=== PATIENT | female | born 1940 | race Asian ===

== ENCOUNTER → 2016-09-12 | Outpatient (CLI) | payer MEDICARE, OTHER ==
[~2016-09-12] MED LIST: CALCTAB20 OR; COLE625T10 OR; FOLI1TAB6 OR; GLYB5TAB8 OR; METF-312 OR; OLME40TA27 OR; OMEG1CAP10 OR; SITA100T7 OR
[2016-09-12 12:47] LABS: Urine Bilirubin Negative (Negative); Urine Blood Negative /uL (Negative); Urine Color Yellow (Yellow); Urine Glucose Normal (Normal); Urine Ketone Negative (Negative); Urine Nitrite Negative (Negative); Urine Urobilinogen Normal (Negative); Urine pH 5.5 (5.0-8.0)
[2016-09-12 12:51] LABS: Basophils # (auto) 0 uL; Basophils % (auto) 0.6 % (0.0-2.0); DEFINITIVE VIEW TRANSMISSION; Eosinophils # (auto) 0.3 uL; Eosinophils % (auto) 4.6 % (0.0-7.0); Hemoglobin 10.8 g/dL (12.2-16.2); Lymphocytes # (auto) 1.5 uL; Lymphocytes % (auto) 27.4 % (10.0-50.0); Mean Corpuscular Hemoglobin 28.2 pg (28.0-32.0); Mean Corpuscular Hgb Conc. 32.7 g/dL (32.0-36.0); Mean Corpuscular Volume 86.2 fL (80.0-100.0); Mean Platelet Volume 9.4 fL (7.4-10.4); Monocytes # (auto) 0.4 uL; Monocytes % (auto) 6.8 % (0.0-12.0); Neutrophils # (auto) 3.4 uL; Neutrophils % (auto) 60.6 % (37.0-80.0); Platelet Count (auto) 180 10^3/uL (140-450); White Blood Cell 5.6 10^3/uL (4.4-10.8)
[2016-09-12 13:01] LABS: Red Cell Distribution Width 20.7 % (11.6-16.0)
[2016-09-12 14:17] LABS: Albumin 3.4 g/dL (3.4-5.0); Bilirubin, Direct 0.2 mg/dL (0-0.2); Bilirubin, Total 0.6 mg/dL (0.2-1.0); Calcium 9.7 mg/dL (8.5-10.1); Total Protein 8.4 g/dL (6.4-8.2)
[2016-09-12 15:20] LABS: Anisocytosis Slight; Platelet Estimate Adequate; Tear Drop Cells FEW
== END | disposition home or self-care (01) ==
LOC: LAB 07:58
PROVIDERS: ATTEND Internal Medicine Cardiovascular Disease
DX: I10 Essential (primary) hypertension (principal); E78.00 Pure hypercholesterolemia, unspecified; K74.1 Hepatic sclerosis; E11.9 Type 2 diabetes mellitus without complications; E03.9 Hypothyroidism, unspecified; D64.9 Anemia, unspecified; E55.9 Vitamin D deficiency, unspecified; N39.0 Urinary tract infection, site not specified
CPT/HCPCS: 36415; 80048; 80061; 80076; 81003; 82306; 83036; 84443; 85025

== ENCOUNTER → 2016-10-15 | Outpatient (CLI) | payer MEDICARE, OTHER | END | disposition home or self-care (01) | LOC: Rad HDHVI 09:53 | PROVIDERS: ATTEND Internal Medicine Cardiovascular Disease | DX: G45.9 Transient cerebral ischemic attack, unspecified (principal); R55 Syncope and collapse; R06.02 Shortness of breath; E78.5 Hyperlipidemia, unspecified | CPT/HCPCS: 93880 ==

== ENCOUNTER → 2017-01-14 | Outpatient (CLI) | payer MEDICARE, OTHER ==
[~2017-01-14] MED LIST changes: -METF-312 OR; +METF-370 OR
[2017-01-14 16:25] LABS: Urine Bilirubin Negative (Negative); Urine Blood Negative /uL (Negative); Urine Color Yellow (Yellow); Urine Glucose Normal (Normal); Urine Ketone Negative (Negative); Urine Nitrite Negative (Negative); Urine Urobilinogen Normal (Negative); Urine pH 7.5 (5.0-8.0)
[2017-01-14 16:39] LABS: Basophils # (auto) 0 uL; Basophils % (auto) 0.6 % (0.0-2.0); CONDITION Y; DEFINITIVE SEE PRINTOUT; Eosinophils # (auto) 0.3 uL; Eosinophils % (auto) 3.5 % (0.0-7.0); Hematocrit 26.1 % (36.0-46.0); Hemoglobin 8.4 g/dL (12.2-16.2); Lymphocytes # (auto) 1.8 uL; Lymphocytes % (auto) 24.7 % (10.0-50.0); Mean Corpuscular Hemoglobin 24.1 pg (28.0-32.0); Mean Corpuscular Volume 75.4 fL (80.0-100.0); Monocytes # (auto) 0.6 uL; Monocytes % (auto) 8.7 % (0.0-12.0); Neutrophils # (auto) 4.6 uL; Neutrophils % (auto) 62.5 % (37.0-80.0); Platelet Count (auto) 200 10^3/uL (140-450); White Blood Cell 7.4 10^3/uL (4.4-10.8)
[2017-01-14 17:24] LABS: Albumin 3.3 g/dL (3.4-5.0); BUN/Creatinine Ratio 18.8; Bilirubin, Direct 0.2 mg/dL (0-0.2); Bilirubin, Total 0.6 mg/dL (0.2-1.0); Calcium 9.4 mg/dL (8.5-10.1); Total Protein 8.2 g/dL (6.4-8.2)
[2017-01-14 18:30] LABS: Anisocytosis Slight; Burr Cells FEW; Hypochromia Slight; Platelet Estimate Adequate
[2017-01-14 18:31] LABS: Schistocytes FEW
== END | disposition home or self-care (01) ==
LOC: Rad HDHVI 11:21
PROVIDERS: ATTEND Internal Medicine Cardiovascular Disease
DX: I10 Essential (primary) hypertension (principal); E78.00 Pure hypercholesterolemia, unspecified; D64.9 Anemia, unspecified; E03.9 Hypothyroidism, unspecified; E55.9 Vitamin D deficiency, unspecified; K74.1 Hepatic sclerosis; E11.9 Type 2 diabetes mellitus without complications; N39.0 Urinary tract infection, site not specified; M85.9 Disorder of bone density and structure, unspecified
CPT/HCPCS: 36415; 77078; 80048; 80061; 80076; 81003; 82306; 83036; 84443; 85025

== ENCOUNTER → 2017-01-22 | Outpatient (CLI) | payer MEDICARE, OTHER ==
[~2017-01-22] MED LIST changes: +CYANOCOBALAMIN (B-12) 1000 MCG/1 ML VIAL IM ONE; +CYANOCOBALAMIN (B-12) 1000 MCG/1 ML VIAL ONE
[2017-01-22 10:30] VITALS: BP 113/52
[2017-01-22 11:56] LABS: Basophils # (auto) 0 uL; Basophils % (auto) 0.2 % (0.0-2.0); CONDITION Y; DEFINITIVE SEE PRINTOUT; Eosinophils # (auto) 0.2 uL; Eosinophils % (auto) 3.5 % (0.0-7.0); Hematocrit 25.2 % (36.0-46.0); Lymphocytes # (auto) 1.7 uL; Mean Corpuscular Hemoglobin 23.6 pg (28.0-32.0); Mean Corpuscular Hgb Conc. 31.8 g/dL (32.0-36.0); Mean Corpuscular Volume 74.1 fL (80.0-100.0); Mean Platelet Volume 8.6 fL (7.4-10.4); Monocytes # (auto) 0.6 uL; Monocytes % (auto) 9.5 % (0.0-12.0); Neutrophils # (auto) 3.8 uL; Neutrophils % (auto) 59.8 % (37.0-80.0); Platelet Count (auto) 206 10^3/uL (140-450); Red Cell Distribution Width 19.8 % (11.6-16.0); SUSPECT SEE PRINTOUT; White Blood Cell 6.4 10^3/uL (4.4-10.8)
[2017-01-22 12:15] VITALS: BP 152/55
[2017-01-22 12:33] LABS: Platelet Estimate Adequate
[2017-01-22 12:34] LABS: Anisocytosis Slight; Hypochromia Moderate; Microcytosis Moderate
[2017-01-22 12:35] LABS: Burr Cells FEW; Tear Drop Cells FEW
[2017-01-22 12:36] LABS: Ovalocytes FEW
== END | disposition home or self-care (01) ==
LOC: CHF HDHVI 10:19
PROVIDERS: ATTEND Internal Medicine Cardiovascular Disease
DX: D51.9 Vitamin B12 deficiency anemia, unspecified (principal)
CPT/HCPCS: 36415; 82607; 85025; G0463; J3420

== ENCOUNTER → 2017-01-23 | Outpatient (CLI) | payer MEDICARE, OTHER ==
[~2017-01-23] MED LIST changes: -CYANOCOBALAMIN (B-12) 1000 MCG/1 ML VIAL IM ONE; -CYANOCOBALAMIN (B-12) 1000 MCG/1 ML VIAL ONE
[2017-01-23 15:08] LABS: Basophils # (auto) 0 uL; Basophils % (auto) 0.2 % (0.0-2.0); CONDITION Y; DEFINITIVE SEE PRINTOUT; Eosinophils # (auto) 0.4 uL; Eosinophils % (auto) 5.3 % (0.0-7.0); Hematocrit 24.8 % (36.0-46.0); Hemoglobin 7.9 g/dL (12.2-16.2); Lymphocytes # (auto) 2.1 uL; Lymphocytes % (auto) 29.7 % (10.0-50.0); Mean Corpuscular Hemoglobin 23.6 pg (28.0-32.0); Mean Corpuscular Hgb Conc. 31.8 g/dL (32.0-36.0); Mean Platelet Volume 7.7 fL (7.4-10.4); Monocytes # (auto) 0.6 uL; Neutrophils % (auto) 55.8 % (37.0-80.0); Platelet Count (auto) 195 10^3/uL (140-450); White Blood Cell 7.2 10^3/uL (4.4-10.8)
[2017-01-23 15:34] LABS: Red Cell Distribution Width 20.2 % (11.6-16.0)
[2017-01-23 15:35] LABS: Reticulocyte Count 2.78 % (0.5-1.5)
[2017-01-23 16:18] LABS: Anisocytosis Slight; Hypochromia Slight; Platelet Estimate Adequate; Schistocytes FEW
== END | disposition home or self-care (01) ==
LOC: LAB 14:46
DX: I10 Essential (primary) hypertension (principal)
CPT/HCPCS: 36415; 83540; 83550; 85025; 85045

== ENCOUNTER → 2017-02-04 | Outpatient (CLI) | payer MEDICARE, OTHER ==
[2017-02-04 10:55] LABS: Basophils # (auto) 0 uL; Basophils % (auto) 0.6 % (0.0-2.0); CONDITION Y; DEFINITIVE SEE PRINTOUT; Eosinophils # (auto) 0.3 uL; Hematocrit 26.5 % (36.0-46.0); Hemoglobin 8.5 g/dL (12.2-16.2); Lymphocytes # (auto) 1.4 uL; Lymphocytes % (auto) 32.1 % (10.0-50.0); Mean Corpuscular Hemoglobin 24.5 pg (28.0-32.0); Mean Corpuscular Volume 76.5 fL (80.0-100.0); Mean Platelet Volume 9.1 fL (7.4-10.4); Monocytes # (auto) 0.4 uL; Monocytes % (auto) 8.4 % (0.0-12.0); Neutrophils # (auto) 2.3 uL; Neutrophils % (auto) 51.9 % (37.0-80.0); Platelet Count (auto) 169 10^3/uL (140-450); White Blood Cell 4.5 10^3/uL (4.4-10.8)
[2017-02-04 10:58] LABS: Red Cell Distribution Width 23.3 % (11.6-16.0)
[2017-02-04 11:40] LABS: Anisocytosis Slight; Hypochromia Slight; Ovalocytes FEW; Platelet Estimate Adequate
== END | disposition home or self-care (01) ==
LOC: LAB 10:42
PROVIDERS: ATTEND Internal Medicine
DX: D50.9 Iron deficiency anemia, unspecified (principal)
CPT/HCPCS: 36415; 85025

== ENCOUNTER → 2017-02-25 | Outpatient (CLI) | payer MEDICARE, OTHER ==
[2017-02-25 10:42] LABS: Basophils # (auto) 0 uL; Basophils % (auto) 0.6 % (0.0-2.0); CONDITION Y; DEFINITIVE SEE PRINTOUT; Eosinophils # (auto) 0.2 uL; Eosinophils % (auto) 5.9 % (0.0-7.0); Hematocrit 29.7 % (36.0-46.0); Hemoglobin 9.8 g/dL (12.2-16.2); Lymphocytes # (auto) 1.1 uL; Lymphocytes % (auto) 27.5 % (10.0-50.0); Mean Corpuscular Hemoglobin 27.8 pg (28.0-32.0); Mean Corpuscular Hgb Conc. 32.9 g/dL (32.0-36.0); Mean Corpuscular Volume 84.4 fL (80.0-100.0); Mean Platelet Volume 9.1 fL (7.4-10.4); Monocytes # (auto) 0.4 uL; Monocytes % (auto) 9.7 % (0.0-12.0); Neutrophils # (auto) 2.3 uL; Neutrophils % (auto) 56.3 % (37.0-80.0); Platelet Count (auto) 190 10^3/uL (140-450); SUSPECT SEE PRINTOUT; White Blood Cell 4.1 10^3/uL (4.4-10.8)
[2017-02-25 10:50] LABS: Red Cell Distribution Width 31.4 % (11.6-16.0)
[2017-02-25 11:02] LABS: BUN/Creatinine Ratio 12.7; Calcium 9.7 mg/dL (8.5-10.1); Potassium 4.5 mmol/L (3.5-5.1)
[2017-02-25 11:30] LABS: Anisocytosis Moderate; Hypochromia Slight; Platelet Estimate Adequate
== END | disposition home or self-care (01) ==
LOC: LAB 10:27
PROVIDERS: ATTEND Internal Medicine
DX: D64.9 Anemia, unspecified (principal)
CPT/HCPCS: 36415; 80048; 85025

== ENCOUNTER → 2017-03-05 | Outpatient (CLI) | payer MEDICARE, OTHER | END | disposition home or self-care (01) | LOC: LAB 08:13 | PROVIDERS: ATTEND Internal Medicine | DX: D64.9 Anemia, unspecified (principal) | CPT/HCPCS: 83540; 83550 ==

== ENCOUNTER → 2017-04-02 | Outpatient (CLI) | payer MEDICARE, OTHER ==
[2017-04-02 09:28] LABS: Basophils # (auto) 0.1 uL; Eosinophils # (auto) 0.5 uL; Eosinophils % (auto) 9.8 % (0.0-7.0); Hematocrit 31.4 % (36.0-46.0); Hemoglobin 10.2 g/dL (12.2-16.2); Lymphocytes # (auto) 1.4 uL; Mean Corpuscular Hemoglobin 31.2 pg (28.0-32.0); Mean Corpuscular Hgb Conc. 32.5 g/dL (32.0-36.0); Mean Platelet Volume 7.4 fL (6.9-10.8); Monocytes # (auto) 0.5 uL; Monocytes % (auto) 8.8 % (0.0-12.0); Neutrophils # (auto) 2.9 uL; Neutrophils % (auto) 54.4 % (37.0-80.0); Nucleated Red Blood Cells % 0.1 %; Platelet Count (auto) 132 10^3/uL (140-450); White Blood Cell 5.3 10^3/uL (4.4-10.8)
[2017-04-02 14:16] LABS: Platelet Estimate Decreased
[2017-04-02 14:26] LABS: Anisocytosis Slight
== END | disposition home or self-care (01) ==
LOC: LAB 09:00
PROVIDERS: ATTEND Internal Medicine
DX: D64.9 Anemia, unspecified (principal)
CPT/HCPCS: 36415; 82728; 83540; 83550; 85025

== ENCOUNTER → 2017-05-20 | Outpatient (CLI) | payer MEDICARE, OTHER ==
[2017-05-20 12:56] LABS: Basophils # (auto) 0 uL; Basophils % (auto) 0.8 % (0.0-2.0); Eosinophils # (auto) 0.4 uL; Eosinophils % (auto) 8.4 % (0.0-7.0); Hematocrit 33.6 % (36.0-46.0); Lymphocytes # (auto) 1.4 uL; Lymphocytes % (auto) 26.8 % (10.0-50.0); Mean Corpuscular Hemoglobin 31.5 pg (28.0-32.0); Mean Corpuscular Hgb Conc. 32.8 g/dL (32.0-36.0); Mean Corpuscular Volume 96.1 fL (80.0-100.0); Mean Platelet Volume 8.8 fL (6.9-10.8); Monocytes # (auto) 0.4 uL; Monocytes % (auto) 7.8 % (0.0-12.0); Neutrophils # (auto) 2.9 uL; Neutrophils % (auto) 56.2 % (37.0-80.0); Nucleated Red Blood Cells % 0.3 %; Platelet Count (auto) 123 10^3/uL (140-450); Red Cell Distribution Width 16.7 % (11.8-14.3); White Blood Cell 5.1 10^3/uL (4.4-10.8)
[2017-05-20 12:58] LABS: Urine Bilirubin Negative (Negative); Urine Blood Negative /uL (Negative); Urine Color Yellow (Yellow); Urine Glucose Normal (Normal); Urine Ketone Negative (Negative); Urine Nitrite Negative (Negative); Urine Urobilinogen Normal (Negative)
[2017-05-20 13:29] LABS: Albumin 3.5 g/dL (3.4-5.0); Bilirubin, Total 0.5 mg/dL (0.2-1.0); Calcium 9.4 mg/dL (8.5-10.1); Potassium 3.7 mmol/L (3.5-5.1); Total Protein 8.6 g/dL (6.4-8.2)
== END | disposition home or self-care (01) ==
LOC: Rad HDHVI 08:04
PROVIDERS: ATTEND Internal Medicine Cardiovascular Disease
DX: E11.9 Type 2 diabetes mellitus without complications (principal); I10 Essential (primary) hypertension; E78.00 Pure hypercholesterolemia, unspecified; D64.9 Anemia, unspecified; E55.9 Vitamin D deficiency, unspecified; K74.1 Hepatic sclerosis; E03.9 Hypothyroidism, unspecified; E61.1 Iron deficiency; N39.0 Urinary tract infection, site not specified
CPT/HCPCS: 36415; 80053; 80061; 81003; 82306; 82728; 83036; 83540; 83550; 84443; 85025; 93306

== ENCOUNTER → 2017-07-15 | Outpatient (CLI) | payer MEDICARE, OTHER ==
[2017-07-15 11:08] LABS: Basophils # (auto) 0.1 uL; Basophils % (auto) 0.9 % (0.0-2.0); Eosinophils # (auto) 0.9 uL; Hematocrit 32.3 % (36.0-46.0); Hemoglobin 10.5 g/dL (12.2-16.2); Lymphocytes # (auto) 1.1 uL; Lymphocytes % (auto) 15.9 % (10.0-50.0); Mean Corpuscular Hemoglobin 28.1 pg (28.0-32.0); Mean Corpuscular Hgb Conc. 32.4 g/dL (32.0-36.0); Mean Corpuscular Volume 86.7 fL (80.0-100.0); Monocytes # (auto) 0.5 uL; Monocytes % (auto) 8.1 % (0.0-12.0); Neutrophils # (auto) 4.1 uL; Neutrophils % (auto) 62.1 % (37.0-80.0); Platelet Count (auto) 126 10^3/uL (140-450); Red Blood Cells 3.72 10^6/uL (4.0-5.20); Red Cell Distribution Width 18.2 % (11.8-14.3); White Blood Cell 6.7 10^3/uL (4.4-10.8)
[2017-07-15 11:48] LABS: % Iron Saturation 21.1 % (15-50)
== END | disposition home or self-care (01) ==
LOC: LAB 10:02
PROVIDERS: ATTEND Internal Medicine
DX: D64.9 Anemia, unspecified (principal)
CPT/HCPCS: 36415; 82728; 83540; 83550; 85025

== ENCOUNTER → 2017-09-07 | Outpatient (CLI) | payer MEDICARE, OTHER ==
[2017-09-07 11:02] LABS: Albumin 3.2 g/dL (3.4-5.0); BUN/Creatinine Ratio 15.7; Bilirubin, Total 0.9 mg/dL (0.2-1.0); Calcium 9.7 mg/dL (8.5-10.1); Potassium 3.6 mmol/L (3.5-5.1)
[2017-09-07 11:17] LABS: Basophils # (auto) 0 uL; Basophils % (auto) 0.9 % (0.0-2.0); Eosinophils # (auto) 0.5 uL; Eosinophils % (auto) 9.4 % (0.0-7.0); Hemoglobin 11.3 g/dL (12.2-16.2); Lymphocytes # (auto) 1.2 uL; Lymphocytes % (auto) 24.4 % (10.0-50.0); Mean Corpuscular Hemoglobin 28.2 pg (28.0-32.0); Mean Corpuscular Hgb Conc. 32.3 g/dL (32.0-36.0); Mean Corpuscular Volume 87.4 fL (80.0-100.0); Monocytes # (auto) 0.4 uL; Monocytes % (auto) 8.8 % (0.0-12.0); Neutrophils # (auto) 2.8 uL; Neutrophils % (auto) 56.5 % (37.0-80.0); Nucleated Red Blood Cells % 0.1 %; Platelet Count (auto) 120 10^3/uL (140-450); Red Blood Cells 4.01 10^6/uL (4.0-5.20); Red Cell Distribution Width 19.6 % (11.8-14.3)
[2017-09-07 11:51] LABS: % Iron Saturation 16.7 % (15-50)
== END | disposition home or self-care (01) ==
LOC: LAB 10:18
PROVIDERS: ATTEND Internal Medicine
DX: D64.9 Anemia, unspecified (principal)
CPT/HCPCS: 36415; 80053; 82728; 83540; 83550; 83615; 85025

== ENCOUNTER → 2017-12-03 | Outpatient (CLI) | payer MEDICARE, OTHER ==
[~2017-12-03] MED LIST changes: +ALEN70TA2 PO; +AMLO5TAB2 PO; +ASPI81TA27 PO; +MULTCAP45 PO; +OLME1TAB13 PO
[2017-12-03 16:42] LABS: Eosinophils # (auto) 0.5 uL; Hemoglobin 8.1 g/dL (12.2-16.2); Monocytes # (auto) 0.5 uL; Monocytes % (auto) 8.9 % (0.0-12.0); Red Cell Distribution Width 18.7 % (11.8-14.3); White Blood Cell 5.3 10^3/uL (4.4-10.8)
[2017-12-03 16:44] LABS: Basophils # (auto) 0 uL; Basophils % (auto) 0.7 % (0.0-2.0); Hematocrit 25.5 % (36.0-46.0); Lymphocytes # (auto) 1.3 uL; Lymphocytes % (auto) 24.3 % (10.0-50.0); Mean Corpuscular Hgb Conc. 31.5 g/dL (32.0-36.0); Mean Corpuscular Volume 82.4 fL (80.0-100.0); Neutrophils % (auto) 57.1 % (37.0-80.0); Platelet Count (auto) 159 10^3/uL (140-450)
[2017-12-03 17:08] LABS: BUN/Creatinine Ratio 11.2; Bilirubin, Total 0.5 mg/dL (0.2-1.0); Calcium 8.9 mg/dL (8.5-10.1); Potassium 4.1 mmol/L (3.5-5.1); Total Protein 8.5 g/dL (6.4-8.2)
[2017-12-03 17:10] LABS: % Iron Saturation 4.1 % (15-50)
== END | disposition home or self-care (01) ==
LOC: LAB 15:49
PROVIDERS: ATTEND Internal Medicine
DX: D64.9 Anemia, unspecified (principal); E78.00 Pure hypercholesterolemia, unspecified; I10 Essential (primary) hypertension; E03.9 Hypothyroidism, unspecified; E11.9 Type 2 diabetes mellitus without complications
CPT/HCPCS: 36415; 80053; 82728; 83540; 83550; 83615; 85025

== ENCOUNTER → 2017-12-22 | Outpatient (CLI) | payer MEDICARE, OTHER ==
[~2017-12-22] MED LIST changes: -GLYB5TAB8 OR
[2017-12-22 10:09] LABS: Basophils # (auto) 0.1 uL; Basophils % (auto) 1.1 % (0.0-2.0); Eosinophils # (auto) 0.4 uL; Eosinophils % (auto) 8.6 % (0.0-7.0); Hematocrit 28.1 % (36.0-46.0); Hemoglobin 8.9 g/dL (12.2-16.2); Lymphocytes % (auto) 21.3 % (10.0-50.0); Mean Corpuscular Hemoglobin 27.6 pg (28.0-32.0); Mean Corpuscular Hgb Conc. 31.7 g/dL (32.0-36.0); Monocytes # (auto) 0.4 uL; Monocytes % (auto) 9.1 % (0.0-12.0); Neutrophils # (auto) 2.8 uL; Neutrophils % (auto) 59.9 % (37.0-80.0); Platelet Count (auto) 128 10^3/uL (140-450); Red Blood Cells 3.23 10^6/uL (4.0-5.20); White Blood Cell 4.6 10^3/uL (4.4-10.8)
[2017-12-22 10:11] LABS: Red Cell Distribution Width 28.3 % (11.8-14.3)
[2017-12-22 10:27] LABS: % Iron Saturation 17.6 % (15-50)
== END | disposition home or self-care (01) ==
LOC: LAB 10:00
PROVIDERS: ATTEND Internal Medicine
DX: D64.9 Anemia, unspecified (principal); I10 Essential (primary) hypertension; E11.9 Type 2 diabetes mellitus without complications; E78.5 Hyperlipidemia, unspecified; E03.9 Hypothyroidism, unspecified
CPT/HCPCS: 36415; 83540; 83550; 85025

== ENCOUNTER → 2018-03-23 | Outpatient (CLI) | payer MEDICARE, OTHER ==
[~2018-03-23] MED LIST changes: +AMLO5TAB13 PO; -AMLO5TAB2 PO; +OLME40TA19 OR; -OLME40TA27 OR
[2018-03-23 09:58] LABS: Urine Bacteria FEW /hpf (None Seen); Urine Blood Negative /uL (Negative); Urine Mucus FEW (None Seen); Urine Specific Gravity 1.009 (1.001-1.035); Urine WBC <1 /hpf (0 - 5)
[2018-03-23 10:09] LABS: Basophils # (auto) 0 uL; Basophils % (auto) 0.9 % (0.0-2.0); Eosinophils # (auto) 0.2 uL; Eosinophils % (auto) 5.4 % (0.0-7.0); Hematocrit 33.8 % (36.0-46.0); Hemoglobin 11.2 g/dL (12.2-16.2); Lymphocytes # (auto) 1.1 uL; Lymphocytes % (auto) 24.3 % (10.0-50.0); Mean Corpuscular Hgb Conc. 33.1 g/dL (32.0-36.0); Mean Corpuscular Volume 99.7 fL (80.0-100.0); Monocytes # (auto) 0.4 uL; Monocytes % (auto) 9.2 % (0.0-12.0); Neutrophils # (auto) 2.6 uL; Neutrophils % (auto) 60.2 % (37.0-80.0); Nucleated Red Blood Cells % 0.1 %; Platelet Count (auto) 102 10^3/uL (140-450); Red Blood Cells 3.39 10^6/uL (4.0-5.20); Red Cell Distribution Width 15.5 % (11.8-14.3); White Blood Cell 4.4 10^3/uL (4.4-10.8)
[2018-03-23 10:13] LABS: % Iron Saturation 15.5 % (15-50)
[2018-03-23 10:14] LABS: Albumin 3.3 g/dL (3.4-5.0); BUN/Creatinine Ratio 13.2; Bilirubin, Total 0.8 mg/dL (0.2-1.0); Calcium 9.4 mg/dL (8.5-10.1); Potassium 3.9 mmol/L (3.5-5.1); Total Protein 8.4 g/dL (6.4-8.2)
== END | disposition home or self-care (01) ==
LOC: LAB 09:23
PROVIDERS: ATTEND Internal Medicine
DX: D64.9 Anemia, unspecified (principal)
CPT/HCPCS: 36415; 80053; 81001; 83540; 83550; 83615; 85025

== ENCOUNTER → 2018-04-12 | Outpatient (CLI) | payer MEDICARE, OTHER, MEDICAID ==
[2018-04-12 12:31] LABS: Basophils # (auto) 0 uL; Basophils % (auto) 1.1 % (0.0-2.0); Eosinophils # (auto) 0.2 uL; Eosinophils % (auto) 4.8 % (0.0-7.0); Hematocrit 33.8 % (36.0-46.0); Hemoglobin 11.3 g/dL (12.2-16.2); Lymphocytes # (auto) 0.9 uL; Lymphocytes % (auto) 21.7 % (10.0-50.0); Mean Corpuscular Hgb Conc. 33.4 g/dL (32.0-36.0); Mean Corpuscular Volume 98.8 fL (80.0-100.0); Monocytes # (auto) 0.4 uL; Monocytes % (auto) 9.9 % (0.0-12.0); Neutrophils # (auto) 2.5 uL; Neutrophils % (auto) 62.5 % (37.0-80.0); Platelet Count (auto) 107 10^3/uL (140-450); Red Blood Cells 3.43 10^6/uL (4.0-5.20); Red Cell Distribution Width 15.9 % (11.8-14.3)
[2018-04-12 12:45] LABS: INR 1.01 (0.9-1.15); Partial Thromboplastin Time 28.7 sec (23.78-33.04); Prothrombin Time 10.8 sec (9.27-12.13)
[2018-04-12 13:49] LABS: Potassium 3.8 mmol/L (3.5-5.1)
[2018-04-12 13:59] LABS: Albumin 3.1 g/dL (3.4-5.0); BUN/Creatinine Ratio 11.3; Calcium 8.6 mg/dL (8.5-10.1)
[2018-04-12 14:01] LABS: Bilirubin, Total 1.2 mg/dL (0.2-1.0); Total Protein 8.2 g/dL (6.4-8.2)
== END | disposition home or self-care (01) ==
LOC: LAB 11:40
DX: K74.69 Other cirrhosis of liver (principal); D50.0 Iron deficiency anemia secondary to blood loss (chronic)
CPT/HCPCS: 36415; 80053; 82105; 82728; 85025; 85610; 85730

== ENCOUNTER → 2018-04-21 | Outpatient (CLI) | payer MEDICARE, OTHER | END | disposition home or self-care (01) | LOC: LAB 16:10 | PROVIDERS: ATTEND Urology | DX: N39.0 Urinary tract infection, site not specified (principal) | CPT/HCPCS: 87086 ==

== ENCOUNTER → 2018-05-07 | Outpatient (CLI) | payer MEDICARE, OTHER ==
[2018-05-07 11:58] LABS: Basophils # (auto) 0.1 uL; Basophils % (auto) 1.3 % (0.0-2.0); Eosinophils # (auto) 0.3 uL; Eosinophils % (auto) 6.2 % (0.0-7.0); Hemoglobin 12.4 g/dL (12.2-16.2); Lymphocytes # (auto) 0.8 uL; Lymphocytes % (auto) 19.6 % (10.0-50.0); Mean Corpuscular Hemoglobin 31.6 pg (28.0-32.0); Mean Corpuscular Hgb Conc. 32.6 g/dL (32.0-36.0); Mean Corpuscular Volume 96.9 fL (80.0-100.0); Monocytes # (auto) 0.5 uL; Monocytes % (auto) 10.7 % (0.0-12.0); Neutrophils # (auto) 2.6 uL; Neutrophils % (auto) 62.2 % (37.0-80.0); Platelet Count (auto) 110 10^3/uL (140-450); Red Blood Cells 3.92 10^6/uL (4.0-5.20); Red Cell Distribution Width 15.2 % (11.8-14.3); White Blood Cell 4.2 10^3/uL (4.4-10.8)
[2018-05-07 12:05] LABS: Albumin 3.7 g/dL (3.4-5.0); Calcium 9.9 mg/dL (8.5-10.1); Potassium 4.6 mmol/L (3.5-5.1)
[2018-05-07 12:09] LABS: BUN/Creatinine Ratio 10.8; Total Protein 9.2 g/dL (6.4-8.2)
== END | disposition home or self-care (01) ==
LOC: LAB 10:56
PROVIDERS: ATTEND Internal Medicine Cardiovascular Disease
DX: I10 Essential (primary) hypertension (principal); D64.9 Anemia, unspecified
CPT/HCPCS: 36415; 80053; 85025

== ENCOUNTER → 2018-06-04 | Outpatient (CLI) | payer MEDICARE, OTHER ==
[2018-06-04 10:28] LABS: Basophils # (auto) 0 uL; Eosinophils # (auto) 0.2 uL; Eosinophils % (auto) 4.7 % (0.0-7.0); Hematocrit 27.3 % (36.0-46.0); Hemoglobin 9.3 g/dL (12.2-16.2); Lymphocytes # (auto) 0.7 uL; Lymphocytes % (auto) 19.1 % (10.0-50.0); Mean Corpuscular Hgb Conc. 33.9 g/dL (32.0-36.0); Mean Corpuscular Volume 94.3 fL (80.0-100.0); Monocytes # (auto) 0.4 uL; Neutrophils # (auto) 2.2 uL; Neutrophils % (auto) 64.2 % (37.0-80.0); Nucleated Red Blood Cells % 0.1 %; Platelet Count (auto) 120 10^3/uL (140-450); Red Blood Cells 2.89 10^6/uL (4.0-5.20); Red Cell Distribution Width 16.8 % (11.8-14.3); White Blood Cell 3.5 10^3/uL (4.4-10.8)
[2018-06-04 10:39] LABS: Albumin 3.3 g/dL (3.4-5.0); Calcium 9.3 mg/dL (8.5-10.1); Potassium 4.8 mmol/L (3.5-5.1)
[2018-06-04 10:44] LABS: BUN/Creatinine Ratio 25.8; Total Protein 7.9 g/dL (6.4-8.2)
[2018-06-04 11:15] LABS: Micro Albumin 7.01 mg/L (0-30.0)
== END | disposition home or self-care (01) ==
LOC: LAB 08:38
DX: E11.65 Type 2 diabetes mellitus with hyperglycemia (principal); D64.9 Anemia, unspecified
CPT/HCPCS: 36415; 80053; 80061; 82043; 82570; 82728; 83036; 85025

== ENCOUNTER → 2018-06-09 | Outpatient (CLI) | payer MEDICARE, OTHER ==
[~2018-06-09] MED LIST changes: +FURO20TA PO; +PRO20T PO; +SPIR50TA5 PO
[2018-06-09 11:16] LABS: Basophils # (auto) 0 uL; Eosinophils # (auto) 0.1 uL; Lymphocytes # (auto) 0.7 uL; Neutrophils # (auto) 2.1 uL; White Blood Cell 3.5 10^3/uL (4.4-10.8)
[2018-06-09 11:18] LABS: Basophils % (auto) 1.1 % (0.0-2.0); Eosinophils % (auto) 3.5 % (0.0-7.0); Hematocrit 24.9 % (36.0-46.0); Hemoglobin 8.5 g/dL (12.2-16.2); Lymphocytes % (auto) 21.2 % (10.0-50.0); Mean Corpuscular Hgb Conc. 34.2 g/dL (32.0-36.0); Mean Corpuscular Volume 93.6 fL (80.0-100.0); Monocytes # (auto) 0.5 uL; Monocytes % (auto) 15.4 % (0.0-12.0); Neutrophils % (auto) 58.8 % (37.0-80.0); Platelet Count (auto) 131 10^3/uL (140-450); Red Blood Cells 2.66 10^6/uL (4.0-5.20)
[2018-06-09 13:09] LABS: Albumin 3.1 g/dL (3.4-5.0); Calcium 8.9 mg/dL (8.5-10.1); Potassium 5.1 mmol/L (3.5-5.1)
[2018-06-09 13:13] LABS: BUN/Creatinine Ratio 27.2
[2018-06-09 13:14] LABS: Bilirubin, Total 0.9 mg/dL (0.2-1.0); Total Protein 7.8 g/dL (6.4-8.2)
== END | disposition home or self-care (01) ==
LOC: LAB 10:32
PROVIDERS: ATTEND Internal Medicine
DX: K74.60 Unspecified cirrhosis of liver (principal)
CPT/HCPCS: 36415; 80053; 85025

== ENCOUNTER → 2018-06-21 | Outpatient (CLI) | payer MEDICARE, OTHER ==
[~2018-06-21] MED LIST changes: -ALEN70TA2 PO; -AMLO5TAB13 PO; -ASPI81TA27 PO; -COLE625T10 OR; -OLME1TAB13 PO; -OLME40TA19 OR; -OMEG1CAP10 OR
[2018-06-21 10:58] LABS: Basophils # (auto) 0 uL; Basophils % (auto) 1.1 % (0.0-2.0); Eosinophils # (auto) 0.2 uL; Eosinophils % (auto) 5.5 % (0.0-7.0); Hematocrit 30.9 % (36.0-46.0); Hemoglobin 10.1 g/dL (12.2-16.2); Lymphocytes # (auto) 0.5 uL; Lymphocytes % (auto) 14.7 % (10.0-50.0); Mean Corpuscular Hemoglobin 32.9 pg (28.0-32.0); Mean Corpuscular Hgb Conc. 32.7 g/dL (32.0-36.0); Mean Corpuscular Volume 100.4 fL (80.0-100.0); Monocytes # (auto) 0.4 uL; Monocytes % (auto) 11.6 % (0.0-12.0); Neutrophils # (auto) 2.2 uL; Neutrophils % (auto) 67.1 % (37.0-80.0); Platelet Count (auto) 91 10^3/uL (140-450); Red Blood Cells 3.08 10^6/uL (4.0-5.20); White Blood Cell 3.3 10^3/uL (4.4-10.8)
[2018-06-21 11:00] LABS: Red Cell Distribution Width 22.3 % (11.8-14.3)
[2018-06-21 12:07] LABS: Albumin 3.1 g/dL (3.4-5.0); Calcium 8.8 mg/dL (8.5-10.1)
[2018-06-21 12:12] LABS: BUN/Creatinine Ratio 11.7; Bilirubin, Total 1.1 mg/dL (0.2-1.0); Total Protein 7.8 g/dL (6.4-8.2)
== END | disposition home or self-care (01) ==
LOC: LAB 10:32
PROVIDERS: ATTEND Internal Medicine Gastroenterology
DX: K74.60 Unspecified cirrhosis of liver (principal)
CPT/HCPCS: 36415; 80053; 85025

== ENCOUNTER → 2018-06-25 | Outpatient (CLI) | payer MEDICARE, OTHER | END | disposition home or self-care (01) | LOC: Rad HDHVI 08:58 | PROVIDERS: ATTEND Internal Medicine Cardiovascular Disease | DX: I10 Essential (primary) hypertension (principal) | CPT/HCPCS: 93306 ==

== ENCOUNTER → 2018-07-02 | Outpatient (CLI) | payer MEDICARE, OTHER ==
[2018-07-02 11:37] LABS: Basophils # (auto) 0 uL; Basophils % (auto) 1.2 % (0.0-2.0); Eosinophils # (auto) 0.2 uL; Eosinophils % (auto) 5.1 % (0.0-7.0); Hematocrit 35.7 % (36.0-46.0); Hemoglobin 11.9 g/dL (12.2-16.2); Lymphocytes # (auto) 0.5 uL; Lymphocytes % (auto) 15.2 % (10.0-50.0); Mean Corpuscular Hemoglobin 32.8 pg (28.0-32.0); Mean Corpuscular Hgb Conc. 33.3 g/dL (32.0-36.0); Mean Corpuscular Volume 98.4 fL (80.0-100.0); Monocytes # (auto) 0.3 uL; Monocytes % (auto) 10.2 % (0.0-12.0); Neutrophils # (auto) 2.2 uL; Neutrophils % (auto) 68.3 % (37.0-80.0); Platelet Count (auto) 105 10^3/uL (140-450); Red Blood Cells 3.63 10^6/uL (4.0-5.20); White Blood Cell 3.3 10^3/uL (4.4-10.8)
[2018-07-02 11:47] LABS: Albumin 3.6 g/dL (3.4-5.0); BUN/Creatinine Ratio 15.8; Calcium 9.5 mg/dL (8.5-10.1)
[2018-07-02 11:49] LABS: Bilirubin, Total 1.3 mg/dL (0.2-1.0); Total Protein 8.9 g/dL (6.4-8.2)
[2018-07-02 11:58] LABS: % Iron Saturation 20.3 % (15-50)
== END | disposition home or self-care (01) ==
LOC: Rad HDHVI 08:25
PROVIDERS: ATTEND Internal Medicine Cardiovascular Disease
DX: K41.90 Unilateral femoral hernia, without obstruction or gangrene, not specified as recurrent (principal); R18.8 Other ascites; M51.36 Other intervertebral disc degeneration, lumbar region; D64.9 Anemia, unspecified; I10 Essential (primary) hypertension; R74.0 Nonspecific elevation of levels of transaminase and lactic acid dehydrogenase [LDH]; E61.1 Iron deficiency
CPT/HCPCS: 36415; 74176; 80053; 83540; 83550; 83615; 85025

== ENCOUNTER → 2018-07-14 | Outpatient (CLI) | payer MEDICARE, OTHER ==
[2018-07-14 11:07] LABS: Basophils # (auto) 0 uL; Basophils % (auto) 0.5 % (0.0-2.0); Eosinophils # (auto) 0.2 uL; Eosinophils % (auto) 5.2 % (0.0-7.0); Hematocrit 34.8 % (36.0-46.0); Hemoglobin 11.7 g/dL (12.2-16.2); Lymphocytes # (auto) 0.5 uL; Lymphocytes % (auto) 11.9 % (10.0-50.0); Mean Corpuscular Hemoglobin 33.3 pg (28.0-32.0); Mean Corpuscular Hgb Conc. 33.7 g/dL (32.0-36.0); Mean Corpuscular Volume 98.9 fL (80.0-100.0); Monocytes # (auto) 0.3 uL; Monocytes % (auto) 8.6 % (0.0-12.0); Neutrophils # (auto) 2.9 uL; Neutrophils % (auto) 73.8 % (37.0-80.0); Platelet Count (auto) 77 10^3/uL (140-450); Red Blood Cells 3.52 10^6/uL (4.0-5.20); Red Cell Distribution Width 19.5 % (11.8-14.3); White Blood Cell 3.9 10^3/uL (4.4-10.8)
[2018-07-14 11:28] LABS: Potassium 4.2 mmol/L (3.5-5.1)
[2018-07-14 11:37] LABS: Albumin 3.2 g/dL (3.4-5.0); BUN/Creatinine Ratio 13.6; Bilirubin, Total 1.1 mg/dL (0.2-1.0); Calcium 8.6 mg/dL (8.5-10.1); Total Protein 8.1 g/dL (6.4-8.2)
== END | disposition home or self-care (01) ==
LOC: LAB 10:47
PROVIDERS: ATTEND Internal Medicine
DX: K74.60 Unspecified cirrhosis of liver (principal)
CPT/HCPCS: 36415; 80053; 85025

== ENCOUNTER → 2018-07-27 | Outpatient (CLI) | payer MEDICARE, OTHER ==
[2018-07-27 08:23] LABS: Basophils # (auto) 0 uL; Eosinophils # (auto) 0.3 uL; Eosinophils % (auto) 6.3 % (0.0-7.0); Hematocrit 34.6 % (36.0-46.0); Lymphocytes # (auto) 0.6 uL; Lymphocytes % (auto) 14.8 % (10.0-50.0); Mean Corpuscular Hemoglobin 33.9 pg (28.0-32.0); Mean Corpuscular Hgb Conc. 34.7 g/dL (32.0-36.0); Mean Corpuscular Volume 97.6 fL (80.0-100.0); Monocytes # (auto) 0.4 uL; Monocytes % (auto) 10.3 % (0.0-12.0); Neutrophils # (auto) 2.7 uL; Neutrophils % (auto) 67.6 % (37.0-80.0); Platelet Count (auto) 93 10^3/uL (140-450); Red Blood Cells 3.55 10^6/uL (4.0-5.20); Red Cell Distribution Width 18.1 % (11.8-14.3); White Blood Cell 4.1 10^3/uL (4.4-10.8)
[2018-07-27 09:34] LABS: Anion Gap 6 (5-15); BUN/Creatinine Ratio 19.5; Blood Urea Nitrogen 15 mg/dL (7-18); Calcium 9.2 mg/dL (8.5-10.1); Carbon Dioxide 25 mmol/L (21-32); Chloride 98 mmol/L (98-107); GFR African American > 60 mL/min; GFR Non-African American > 60 mL/min; Glucose 136 mg/dL (74-106); Potassium 4.6 mmol/L (3.5-5.1); Sodium 129 mmol/L (136-145)
== END | disposition home or self-care (01) ==
LOC: LAB 08:03
PROVIDERS: ATTEND Internal Medicine Gastroenterology
DX: K74.60 Unspecified cirrhosis of liver (principal); Q27.30 Arteriovenous malformation, site unspecified; R18.8 Other ascites
CPT/HCPCS: 36415; 80048; 85025

== ENCOUNTER → 2018-08-20 | Outpatient (CLI) | payer MEDICARE, OTHER ==
[2018-08-20 11:39] LABS: Prothrombin Time 10.7 sec (9.27-12.13)
[2018-08-20 11:43] LABS: Albumin 3.4 g/dL (3.4-5.0); Potassium 4.6 mmol/L (3.5-5.1)
[2018-08-20 11:47] LABS: Basophils # (auto) 0 uL; Basophils % (auto) 0.7 % (0.0-2.0); Eosinophils # (auto) 0.2 uL; Eosinophils % (auto) 5.3 % (0.0-7.0); Hematocrit 35.1 % (36.0-46.0); Hemoglobin 11.9 g/dL (12.2-16.2); Lymphocytes # (auto) 0.5 uL; Lymphocytes % (auto) 12.1 % (10.0-50.0); Mean Corpuscular Hemoglobin 33.8 pg (28.0-32.0); Mean Corpuscular Hgb Conc. 33.9 g/dL (32.0-36.0); Mean Corpuscular Volume 99.5 fL (80.0-100.0); Monocytes # (auto) 0.4 uL; Monocytes % (auto) 10.5 % (0.0-12.0); Neutrophils # (auto) 2.7 uL; Neutrophils % (auto) 71.4 % (37.0-80.0); Platelet Count (auto) 89 10^3/uL (140-450); Red Blood Cells 3.52 10^6/uL (4.0-5.20); Red Cell Distribution Width 15.9 % (11.8-14.3); White Blood Cell 3.8 10^3/uL (4.4-10.8)
[2018-08-20 11:50] LABS: BUN/Creatinine Ratio 20.2; Bilirubin, Total 1.4 mg/dL (0.2-1.0); Calcium 9.2 mg/dL (8.5-10.1); Total Protein 8.6 g/dL (6.4-8.2)
[2018-08-20 11:52] LABS: % Iron Saturation 27.4 % (15-50)
== END | disposition home or self-care (01) ==
LOC: LAB 10:34
DX: K74.60 Unspecified cirrhosis of liver (principal); D50.9 Iron deficiency anemia, unspecified; R94.5 Abnormal results of liver function studies
CPT/HCPCS: 36415; 80053; 82105; 82390; 83540; 83550; 85025; 85610; 86038

== ENCOUNTER → 2018-09-27 | Outpatient (CLI) | payer MEDICARE, OTHER ==
[2018-09-27 09:08] LABS: Basophils # (auto) 0 uL; Basophils % (auto) 0.8 % (0.0-2.0); Eosinophils # (auto) 0.3 uL; Eosinophils % (auto) 6.4 % (0.0-7.0); Hematocrit 34.5 % (36.0-46.0); Hemoglobin 11.8 g/dL (12.2-16.2); Lymphocytes # (auto) 0.7 uL; Lymphocytes % (auto) 15.8 % (10.0-50.0); Mean Corpuscular Hemoglobin 33.4 pg (28.0-32.0); Mean Corpuscular Hgb Conc. 34.1 g/dL (32.0-36.0); Mean Corpuscular Volume 97.8 fL (80.0-100.0); Monocytes # (auto) 0.4 uL; Monocytes % (auto) 8.8 % (0.0-12.0); Neutrophils # (auto) 3.2 uL; Neutrophils % (auto) 68.2 % (37.0-80.0); Platelet Count (auto) 90 10^3/uL (140-450); Red Blood Cells 3.52 10^6/uL (4.0-5.20); Red Cell Distribution Width 14.9 % (11.8-14.3); White Blood Cell 4.7 10^3/uL (4.4-10.8)
[2018-09-27 09:22] LABS: Prothrombin Time 10.7 sec (9.27-12.13)
[2018-09-27 10:22] LABS: Potassium 4.9 mmol/L (3.5-5.1)
[2018-09-27 10:31] LABS: Albumin 3.5 g/dL (3.4-5.0); BUN/Creatinine Ratio 18.3; Bilirubin, Total 1.1 mg/dL (0.2-1.0); Calcium 9.7 mg/dL (8.5-10.1); Total Protein 8.5 g/dL (6.4-8.2)
== END | disposition home or self-care (01) ==
LOC: LAB 08:09
PROVIDERS: ATTEND Internal Medicine Gastroenterology
DX: E11.9 Type 2 diabetes mellitus without complications (principal); Z86.2 Personal history of diseases of the blood and blood-forming organs and certain disorders involving the immune mechanism
CPT/HCPCS: 36415; 80053; 83036; 85025; 85610

== ENCOUNTER → 2018-10-27 | Outpatient (CLI) | payer MEDICARE, OTHER ==
[2018-10-27 09:57] LABS: Basophils # (auto) 0.1 uL; Basophils % (auto) 1.8 % (0.0-2.0); Eosinophils # (auto) 0.4 uL; Eosinophils % (auto) 8.9 % (0.0-7.0); Hematocrit 33.1 % (36.0-46.0); Hemoglobin 11.1 g/dL (12.2-16.2); Lymphocytes # (auto) 0.5 uL; Lymphocytes % (auto) 11.3 % (10.0-50.0); Mean Corpuscular Hgb Conc. 33.6 g/dL (32.0-36.0); Mean Corpuscular Volume 98.3 fL (80.0-100.0); Monocytes # (auto) 0.4 uL; Monocytes % (auto) 9.3 % (0.0-12.0); Neutrophils % (auto) 68.7 % (37.0-80.0); Platelet Count (auto) 84 10^3/uL (140-450); Red Blood Cells 3.37 10^6/uL (4.0-5.20); Red Cell Distribution Width 14.6 % (11.8-14.3); White Blood Cell 4.4 10^3/uL (4.4-10.8)
[2018-10-27 10:38] LABS: Albumin 3.3 g/dL (3.4-5.0); Calcium 9.1 mg/dL (8.5-10.1); Potassium 4.7 mmol/L (3.5-5.1)
[2018-10-27 10:41] LABS: BUN/Creatinine Ratio 20.2; Bilirubin, Total 1.1 mg/dL (0.2-1.0); Total Protein 8.3 g/dL (6.4-8.2)
[2018-10-27 11:02] LABS: % Iron Saturation 24.8 % (15-50)
[2018-10-27 11:13] LABS: Free T4 (Free Thyroxine) 0.87 ng/dL (0.89-1.76); T3 Total 0.83 ng/mL (0.60-1.81)
== END | disposition home or self-care (01) ==
LOC: LAB 09:30
PROVIDERS: ATTEND Internal Medicine
DX: G24.4 Idiopathic orofacial dystonia (principal); D64.9 Anemia, unspecified
CPT/HCPCS: 36415; 80053; 82390; 83540; 83550; 83615; 84439; 84443; 84480; 85025

== ENCOUNTER → 2018-11-30 | Outpatient (CLI) | payer MEDICARE, OTHER ==
[2018-11-30 09:26] LABS: Basophils # (auto) 0 uL; Basophils % (auto) 0.8 % (0.0-2.0); Mean Corpuscular Hgb Conc. 34.5 g/dL (32.0-36.0); Monocytes # (auto) 0.5 uL
[2018-11-30 09:31] LABS: Eosinophils # (auto) 0.4 uL; Eosinophils % (auto) 7.9 % (0.0-7.0); Hematocrit 31.7 % (36.0-46.0); Hemoglobin 10.9 g/dL (12.2-16.2); Lymphocytes # (auto) 0.6 uL; Lymphocytes % (auto) 13.9 % (10.0-50.0); Mean Corpuscular Hemoglobin 34.1 pg (28.0-32.0); Mean Corpuscular Volume 98.9 fL (80.0-100.0); Monocytes % (auto) 10.8 % (0.0-12.0); Neutrophils % (auto) 66.6 % (37.0-80.0); Nucleated Red Blood Cells % 0.1 %; Platelet Count (auto) 86 10^3/uL (140-450); Red Cell Distribution Width 15.5 % (11.8-14.3); White Blood Cell 4.4 10^3/uL (4.4-10.8)
[2018-11-30 09:39] LABS: INR 0.99 (0.9-1.15); Partial Thromboplastin Time 27.6 sec (23.64-32.05); Prothrombin Time 10.7 sec (9.06-12.60)
[2018-11-30 09:55] LABS: Albumin 3.6 g/dL (3.4-5.0); BUN/Creatinine Ratio 20.6; Bilirubin, Total 1.2 mg/dL (0.2-1.0); Calcium 9.5 mg/dL (8.5-10.1); Total Protein 8.5 g/dL (6.4-8.2)
== END | disposition home or self-care (01) ==
LOC: LAB 08:22
PROVIDERS: ATTEND Internal Medicine Gastroenterology
DX: K74.60 Unspecified cirrhosis of liver (principal)
CPT/HCPCS: 36415; 80053; 85025; 85610; 85730

== ENCOUNTER → 2018-12-03 | Outpatient (CLI) | payer MEDICARE, OTHER ==
[2018-12-03 09:18] LABS: Calcium 9.3 mg/dL (8.5-10.1)
[2018-12-03 09:22] LABS: BUN/Creatinine Ratio 20.5
== END | disposition home or self-care (01) ==
LOC: LAB 08:35
PROVIDERS: ATTEND Internal Medicine
DX: E88.9 Metabolic disorder, unspecified (principal)
CPT/HCPCS: 36415; 80048

== ENCOUNTER → 2018-12-07 | Outpatient (CLI) | payer MEDICARE ==
[2018-12-07 09:46] LABS: Calcium 9.4 mg/dL (8.5-10.1); Potassium 5.2 mmol/L (3.5-5.1)
== END | disposition home or self-care (01) ==
LOC: LAB 08:42
PROVIDERS: ATTEND Internal Medicine
DX: K74.60 Unspecified cirrhosis of liver (principal)
CPT/HCPCS: 36415; 80048

== ENCOUNTER → 2018-12-21 | Outpatient (CLI) | payer MEDICARE ==
[2018-12-21 12:47] LABS: Basophils # (auto) 0 uL; Basophils % (auto) 0.8 % (0.0-2.0); Eosinophils # (auto) 0.2 uL; Eosinophils % (auto) 4.8 % (0.0-7.0); Hematocrit 32.5 % (36.0-46.0); Hemoglobin 11.1 g/dL (12.2-16.2); Lymphocytes # (auto) 0.7 uL; Lymphocytes % (auto) 17.7 % (10.0-50.0); Mean Corpuscular Hgb Conc. 34.1 g/dL (32.0-36.0); Mean Corpuscular Volume 99.6 fL (80.0-100.0); Monocytes # (auto) 0.4 uL; Monocytes % (auto) 9.7 % (0.0-12.0); Neutrophils # (auto) 2.6 uL; Platelet Count (auto) 82 10^3/uL (140-450); Red Blood Cells 3.26 10^6/uL (4.0-5.20); Red Cell Distribution Width 15.6 % (11.8-14.3); White Blood Cell 3.9 10^3/uL (4.4-10.8)
[2018-12-21 14:13] LABS: Albumin 3.2 g/dL (3.4-5.0); BUN/Creatinine Ratio 14.9; Calcium 9.3 mg/dL (8.5-10.1); Potassium 3.7 mmol/L (3.5-5.1)
[2018-12-21 14:15] LABS: Bilirubin, Total 1.5 mg/dL (0.2-1.0); Total Protein 8.1 g/dL (6.4-8.2)
== END | disposition home or self-care (01) ==
LOC: LAB 12:13
PROVIDERS: ATTEND Internal Medicine
DX: D64.9 Anemia, unspecified (principal); I10 Essential (primary) hypertension; E11.9 Type 2 diabetes mellitus without complications
CPT/HCPCS: 36415; 80053; 85025

== ENCOUNTER → 2019-01-05 | Outpatient (CLI) | payer MEDICARE ==
[2019-01-05 12:38] LABS: Basophils # (auto) 0.1 uL; Basophils % (auto) 1.3 % (0.0-2.0); Eosinophils # (auto) 0.3 uL; Hematocrit 34.3 % (36.0-46.0); Hemoglobin 11.6 g/dL (12.2-16.2); Lymphocytes # (auto) 0.7 uL; Lymphocytes % (auto) 16.5 % (10.0-50.0); Mean Corpuscular Hemoglobin 33.6 pg (28.0-32.0); Mean Corpuscular Hgb Conc. 33.7 g/dL (32.0-36.0); Mean Corpuscular Volume 99.6 fL (80.0-100.0); Monocytes # (auto) 0.4 uL; Monocytes % (auto) 10.5 % (0.0-12.0); Neutrophils # (auto) 2.8 uL; Neutrophils % (auto) 64.7 % (37.0-80.0); Nucleated Red Blood Cells % 0.1 %; Platelet Count (auto) 78 10^3/uL (140-450); Red Blood Cells 3.44 10^6/uL (4.0-5.20); Red Cell Distribution Width 15.5 % (11.8-14.3); White Blood Cell 4.3 10^3/uL (4.4-10.8)
[2019-01-05 12:51] LABS: Urine Blood Negative /uL (Negative); Urine Specific Gravity 1.013 (1.001-1.035)
[2019-01-05 13:14] LABS: Albumin 3.3 g/dL (3.4-5.0); Calcium 9.3 mg/dL (8.5-10.1); Potassium 4.6 mmol/L (3.5-5.1)
[2019-01-05 13:20] LABS: Free T4 (Free Thyroxine) 0.92 ng/dL (0.89-1.76)
[2019-01-05 13:21] LABS: Bilirubin, Total 1.4 mg/dL (0.2-1.0)
== END | disposition home or self-care (01) ==
LOC: LAB 07:53
PROVIDERS: ATTEND Internal Medicine Cardiovascular Disease
DX: E03.9 Hypothyroidism, unspecified (principal); E55.9 Vitamin D deficiency, unspecified; E11.9 Type 2 diabetes mellitus without complications; N39.0 Urinary tract infection, site not specified; D51.9 Vitamin B12 deficiency anemia, unspecified; Z79.899 Other long term (current) drug therapy
CPT/HCPCS: 36415; 80053; 80061; 81003; 82306; 82607; 83036; 84439; 84443; 85025

== ENCOUNTER → 2019-01-19 | Outpatient (CLI) | payer MEDICARE ==
[~2019-01-19] MED LIST changes: +FURO1TAB33 PO; -FURO20TA PO
[2019-01-19 11:10] LABS: % Iron Saturation 24.2 % (15-50)
== END | disposition home or self-care (01) ==
LOC: LAB 08:21
PROVIDERS: ATTEND Internal Medicine
DX: K74.60 Unspecified cirrhosis of liver (principal); K76.6 Portal hypertension; K29.70 Gastritis, unspecified, without bleeding; K26.9 Duodenal ulcer, unspecified as acute or chronic, without hemorrhage or perforation; Q27.30 Arteriovenous malformation, site unspecified; D69.6 Thrombocytopenia, unspecified; K76.9 Liver disease, unspecified; R18.8 Other ascites
CPT/HCPCS: 36415; 82728; 83540; 83550; 83615

== ENCOUNTER → 2019-03-09 | Outpatient (CLI) | payer MEDICARE, OTHER ==
[2019-03-09 08:49] LABS: Basophils # (auto) 0 uL; Basophils % (auto) 0.6 % (0.0-2.0); Eosinophils # (auto) 0.2 uL; Eosinophils % (auto) 4.6 % (0.0-7.0); Hematocrit 35.6 % (36.0-46.0); Lymphocytes # (auto) 0.7 uL; Lymphocytes % (auto) 14.4 % (10.0-50.0); Mean Corpuscular Hemoglobin 32.3 pg (28.0-32.0); Mean Corpuscular Hgb Conc. 33.5 g/dL (32.0-36.0); Mean Corpuscular Volume 96.4 fL (80.0-100.0); Monocytes # (auto) 0.5 uL; Monocytes % (auto) 10.9 % (0.0-12.0); Neutrophils # (auto) 3.1 uL; Neutrophils % (auto) 69.5 % (37.0-80.0); Platelet Count (auto) 72 10^3/uL (140-450); Red Cell Distribution Width 15.2 % (11.8-14.3); White Blood Cell 4.5 10^3/uL (4.4-10.8)
[2019-03-09 09:22] LABS: Albumin 3.4 g/dL (3.4-5.0); BUN/Creatinine Ratio 18.2; Bilirubin, Total 1.3 mg/dL (0.2-1.0); Calcium 9.6 mg/dL (8.5-10.1)
[2019-03-10 15:25] LABS: Micro Albumin 8.36 mg/L (0-30.0)
== END | disposition home or self-care (01) ==
LOC: LAB 08:14
DX: D64.9 Anemia, unspecified (principal); E11.9 Type 2 diabetes mellitus without complications
CPT/HCPCS: 36415; 80053; 80061; 82043; 82570; 83036; 85025

== ENCOUNTER → 2019-04-20 | Outpatient (CLI) | payer MEDICARE, OTHER ==
[2019-04-20 08:43] LABS: Basophils # (auto) 0 uL; Basophils % (auto) 0.4 % (0.0-2.0); Eosinophils # (auto) 0.4 uL; Eosinophils % (auto) 7.2 % (0.0-7.0); Hematocrit 34.8 % (36.0-46.0); Lymphocytes # (auto) 0.8 uL; Lymphocytes % (auto) 13.6 % (10.0-50.0); Mean Corpuscular Hemoglobin 33.7 pg (28.0-32.0); Mean Corpuscular Hgb Conc. 34.6 g/dL (32.0-36.0); Mean Corpuscular Volume 97.5 fL (80.0-100.0); Monocytes # (auto) 0.5 uL; Monocytes % (auto) 9.7 % (0.0-12.0); Neutrophils # (auto) 3.9 uL; Neutrophils % (auto) 69.1 % (37.0-80.0); Platelet Count (auto) 96 10^3/uL (140-450); Red Blood Cells 3.57 10^6/uL (4.0-5.20); Red Cell Distribution Width 15.5 % (11.8-14.3); White Blood Cell 5.7 10^3/uL (4.4-10.8)
[2019-04-20 09:09] LABS: Potassium 5.5 mmol/L (3.5-5.1)
[2019-04-20 09:14] LABS: Albumin 3.6 g/dL (3.4-5.0); BUN/Creatinine Ratio 16.5; Bilirubin, Total 1.4 mg/dL (0.2-1.0); Calcium 9.6 mg/dL (8.5-10.1); Total Protein 8.8 g/dL (6.4-8.2)
== END | disposition home or self-care (01) ==
LOC: LAB 08:25
DX: K75.81 Nonalcoholic steatohepatitis (NASH) (principal)
CPT/HCPCS: 36415; 80053; 85025; 85610

== ENCOUNTER → 2019-04-20 | Outpatient (CLI) | payer MEDICARE, OTHER | END | disposition home or self-care (01) | LOC: Rad HDHVI 09:43 | PROVIDERS: ATTEND Internal Medicine Cardiovascular Disease | DX: M85.9 Disorder of bone density and structure, unspecified (principal); K75.81 Nonalcoholic steatohepatitis (NASH) | CPT/HCPCS: 36415; 77078; 80053; 85025; 85610 ==

== ENCOUNTER → 2019-04-28 | Outpatient (CLI) | payer MEDICARE, OTHER ==
[2019-04-28 13:10] LABS: BUN/Creatinine Ratio 23.5; Calcium 9.7 mg/dL (8.5-10.1); Potassium 4.5 mmol/L (3.5-5.1)
== END | disposition home or self-care (01) ==
LOC: LAB 12:30
PROVIDERS: ATTEND Internal Medicine Gastroenterology
DX: K74.60 Unspecified cirrhosis of liver (principal)
CPT/HCPCS: 36415; 80048

== ENCOUNTER → 2019-05-26 | Outpatient (CLI) | payer MEDICARE, OTHER ==
[2019-05-26 11:26] LABS: Basophils # (auto) 0 uL; Basophils % (auto) 0.9 % (0.0-2.0); Eosinophils # (auto) 0.3 uL; Hematocrit 36.1 % (36.0-46.0); Hemoglobin 12.4 g/dL (12.2-16.2); Lymphocytes # (auto) 0.6 uL; Lymphocytes % (auto) 12.2 % (10.0-50.0); Mean Corpuscular Hemoglobin 33.7 pg (28.0-32.0); Mean Corpuscular Hgb Conc. 34.4 g/dL (32.0-36.0); Mean Corpuscular Volume 97.9 fL (80.0-100.0); Monocytes # (auto) 0.5 uL; Monocytes % (auto) 10.2 % (0.0-12.0); Neutrophils # (auto) 3.6 uL; Neutrophils % (auto) 70.7 % (37.0-80.0); Platelet Count (auto) 87 10^3/uL (140-450); Red Blood Cells 3.69 10^6/uL (4.0-5.20); Red Cell Distribution Width 14.7 % (11.8-14.3); White Blood Cell 5.1 10^3/uL (4.4-10.8)
[2019-05-26 11:41] LABS: Albumin 3.6 g/dL (3.4-5.0); Calcium 9.9 mg/dL (8.5-10.1); Potassium 4.6 mmol/L (3.5-5.1)
[2019-05-26 11:44] LABS: % Iron Saturation 28.5 % (15-50); BUN/Creatinine Ratio 21.6; Bilirubin, Total 1.2 mg/dL (0.2-1.0); Total Protein 8.7 g/dL (6.4-8.2)
[2019-05-26 11:52] LABS: Folate (Folic Acid) > 24.00 ng/mL (5.38-24)
== END | disposition home or self-care (01) ==
LOC: LAB 10:56
PROVIDERS: ATTEND Internal Medicine
DX: D64.9 Anemia, unspecified (principal)
CPT/HCPCS: 36415; 80053; 82607; 82728; 82746; 83540; 83550; 85025

== ENCOUNTER → 2019-05-26 | Outpatient (CLI) | payer MEDICARE, OTHER | END | disposition home or self-care (01) | LOC: Rad HDHVI 10:01 | PROVIDERS: ATTEND Internal Medicine Cardiovascular Disease | DX: I34.0 Nonrheumatic mitral (valve) insufficiency (principal); I10 Essential (primary) hypertension; R42 Dizziness and giddiness; Z86.2 Personal history of diseases of the blood and blood-forming organs and certain disorders involving the immune mechanism | CPT/HCPCS: 36415; 80053; 82607; 82728; 82746; 83540; 83550; 85025; 93306 ==

== ENCOUNTER → 2019-07-08 | Outpatient (CLI) | payer MEDICARE, OTHER ==
[2019-07-08 11:52] LABS: Basophils # (auto) 0 uL; Basophils % (auto) 0.8 % (0.0-2.0); Eosinophils # (auto) 0.4 uL; Eosinophils % (auto) 6.3 % (0.0-7.0); Hematocrit 36.6 % (36.0-46.0); Hemoglobin 12.5 g/dL (12.2-16.2); Lymphocytes # (auto) 0.6 uL; Lymphocytes % (auto) 11.5 % (10.0-50.0); Mean Corpuscular Hemoglobin 33.9 pg (28.0-32.0); Mean Corpuscular Hgb Conc. 34.2 g/dL (32.0-36.0); Monocytes # (auto) 0.6 uL; Monocytes % (auto) 10.1 % (0.0-12.0); Neutrophils % (auto) 71.3 % (37.0-80.0); Nucleated Red Blood Cells % 0.1 %; Platelet Count (auto) 77 10^3/uL (140-450); Red Cell Distribution Width 15.2 % (11.8-14.3); White Blood Cell 5.6 10^3/uL (4.4-10.8)
[2019-07-08 12:16] LABS: Urine Blood Negative /uL (Negative); Urine Specific Gravity 1.014 (1.001-1.035)
[2019-07-08 12:24] LABS: Free T4 (Free Thyroxine) 1.16 ng/dL (0.89-1.76)
[2019-07-08 12:27] LABS: INR 1.03 (0.9-1.15); Partial Thromboplastin Time 29.2 sec (23.64-32.05)
[2019-07-08 12:31] LABS: Albumin 3.3 g/dL (3.4-5.0); BUN/Creatinine Ratio 17.2; Calcium 9.9 mg/dL (8.5-10.1); Potassium 4.8 mmol/L (3.5-5.1)
[2019-07-08 12:35] LABS: Bilirubin, Total 1.6 mg/dL (0.2-1.0); Total Protein 8.4 g/dL (6.4-8.2)
== END | disposition home or self-care (01) ==
LOC: LAB 08:50
PROVIDERS: ATTEND Internal Medicine Cardiovascular Disease
DX: E03.9 Hypothyroidism, unspecified (principal); K90.9 Intestinal malabsorption, unspecified; N39.0 Urinary tract infection, site not specified; D51.9 Vitamin B12 deficiency anemia, unspecified; E11.9 Type 2 diabetes mellitus without complications; K74.60 Unspecified cirrhosis of liver; Q27.30 Arteriovenous malformation, site unspecified; Z79.899 Other long term (current) drug therapy
CPT/HCPCS: 36415; 80053; 80061; 81003; 82105; 82306; 82607; 83036; 84439; 84443; 85025; 85610; 85730

== ENCOUNTER → 2019-08-19 | Outpatient (CLI) | payer MEDICARE, OTHER ==
[2019-08-19 11:21] LABS: Albumin 3.2 g/dL (3.4-5.0); Calcium 9.9 mg/dL (8.5-10.1); Potassium 4.7 mmol/L (3.5-5.1)
[2019-08-19 11:25] LABS: BUN/Creatinine Ratio 20.5; Bilirubin, Total 1.4 mg/dL (0.2-1.0); Magnesium 1.9 mg/dL (1.6-2.6); Total Protein 8.4 g/dL (6.4-8.2)
== END | disposition home or self-care (01) ==
LOC: LAB 09:49
PROVIDERS: ATTEND Internal Medicine Gastroenterology
DX: K74.60 Unspecified cirrhosis of liver (principal); R18.8 Other ascites; Q27.30 Arteriovenous malformation, site unspecified; E87.1 Hypo-osmolality and hyponatremia
CPT/HCPCS: 36415; 80053; 83735

== ENCOUNTER → 2019-11-21 | Outpatient (CLI) | payer MEDICARE, OTHER ==
[2019-11-21 08:01] LABS: Basophils # (auto) 0 10 ^3/uL (0-0.2); Basophils % (auto) 0.7 % (0.0-2.0); Eosinophils # (auto) 0.2 10 ^3/uL (0-0.8); Eosinophils % (auto) 4.5 % (0.0-7.0); Hematocrit 33.7 % (36.0-46.0); Hemoglobin 11.5 g/dL (12.2-16.2); Lymphocytes # (auto) 0.6 10 ^3/uL (0.4-5.4); Lymphocytes % (auto) 12.6 % (10.0-50.0); Mean Corpuscular Hemoglobin 33.8 pg (28.0-32.0); Mean Corpuscular Hgb Conc. 34.2 g/dL (32.0-36.0); Monocytes # (auto) 0.5 10 ^3/uL (0-1.3); Neutrophils # (auto) 3.4 10 ^3/uL (1.6-8.6); Neutrophils % (auto) 72.2 % (37.0-80.0); Nucleated Red Blood Cells % 0.1 %; Platelet Count (auto) 79 10^3/uL (140-450); Red Cell Distribution Width 14.4 % (11.8-14.3); White Blood Cell 4.8 10^3/uL (4.4-10.8)
[2019-11-21 08:52] LABS: Albumin 3.3 g/dL (3.4-5.0); Calcium 9.3 mg/dL (8.5-10.1); Potassium 5.3 mmol/L (3.5-5.1)
[2019-11-21 08:57] LABS: BUN/Creatinine Ratio 17.8; Bilirubin, Total 1.6 mg/dL (0.2-1.0); Total Protein 8.2 g/dL (6.4-8.2)
[2019-11-21 09:27] LABS: Ferritin 178.5 ng/mL (10-322); Folate (Folic Acid) 17.85 ng/mL (5.38-24)
== END | disposition home or self-care (01) ==
LOC: LAB 07:41
PROVIDERS: ATTEND Internal Medicine
DX: D64.9 Anemia, unspecified (principal); E11.9 Type 2 diabetes mellitus without complications
CPT/HCPCS: 36415; 80053; 80061; 82607; 82728; 82746; 85025

== ENCOUNTER → 2019-11-30 | Outpatient (CLI) | payer MEDICARE, OTHER ==
[2019-11-30 08:56] LABS: Potassium 4.8 mmol/L (3.5-5.1)
[2019-11-30 09:05] LABS: Albumin 3.2 g/dL (3.4-5.0); BUN/Creatinine Ratio 19.2; Bilirubin, Total 1.4 mg/dL (0.2-1.0); Calcium 8.8 mg/dL (8.5-10.1); Total Protein 7.9 g/dL (6.4-8.2)
== END | disposition home or self-care (01) ==
LOC: LAB 07:57
PROVIDERS: ATTEND Internal Medicine
DX: D64.9 Anemia, unspecified (principal)
CPT/HCPCS: 36415; 80053

== ENCOUNTER → 2020-02-01 | Outpatient (CLI) | payer MEDICARE, OTHER ==
[~2020-02-01] MED LIST changes: +CHOL500023 PO; +FURO1TAB31 PO; +GLIP5TAB12 PO; +LACT10SO70 PO; -METF-370 OR; +METF-370 PO; +SITA100T7 PO
[2020-02-01 08:08] LABS: Basophils # (auto) 0 10 ^3/uL (0-0.2); Basophils % (auto) 0.9 % (0.0-2.0); Eosinophils # (auto) 0.2 10 ^3/uL (0-0.8); Eosinophils % (auto) 4.1 % (0.0-7.0); Hematocrit 33.8 % (36.0-46.0); Hemoglobin 11.4 g/dL (12.2-16.2); Lymphocytes # (auto) 0.6 10 ^3/uL (0.4-5.4); Lymphocytes % (auto) 15.1 % (10.0-50.0); Mean Corpuscular Hemoglobin 33.8 pg (28.0-32.0); Mean Corpuscular Hgb Conc. 33.8 g/dL (32.0-36.0); Monocytes # (auto) 0.5 10 ^3/uL (0-1.3); Monocytes % (auto) 11.6 % (0.0-12.0); Neutrophils # (auto) 2.9 10 ^3/uL (1.6-8.6); Neutrophils % (auto) 68.3 % (37.0-80.0); Nucleated Red Blood Cells % 0.1 %; Platelet Count (auto) 68 10^3/uL (140-450); Red Blood Cells 3.38 10^6/uL (4.0-5.20); Red Cell Distribution Width 14.6 % (11.8-14.3); White Blood Cell 4.2 10^3/uL (4.4-10.8)
[2020-02-01 08:11] LABS: Urine Blood Negative /uL (Negative); Urine Specific Gravity 1.013 (1.001-1.035)
[2020-02-01 08:28] LABS: Magnesium 1.9 mg/dL (1.6-2.6); Potassium 4.9 mmol/L (3.5-5.1)
[2020-02-01 08:37] LABS: Albumin 3.3 g/dL (3.4-5.0); BUN/Creatinine Ratio 20.5; Bilirubin, Direct 0.5 mg/dL (0-0.2); Bilirubin, Total 0.9 mg/dL (0.2-1.0); Calcium 9.6 mg/dL (8.5-10.1); Phosphorus 3.3 mg/dL (2.5-4.90); Total Protein 8.4 g/dL (6.4-8.2)
== END | disposition home or self-care (01) ==
LOC: LAB 07:43
PROVIDERS: ATTEND Internal Medicine Cardiovascular Disease
DX: D51.9 Vitamin B12 deficiency anemia, unspecified (principal); E03.9 Hypothyroidism, unspecified; K90.9 Intestinal malabsorption, unspecified; N39.0 Urinary tract infection, site not specified; Z00.00 Encounter for general adult medical examination without abnormal findings; Z79.899 Other long term (current) drug therapy
CPT/HCPCS: 36415; 80048; 80061; 80076; 81003; 82306; 83036; 83735; 84100; 84443; 85025

== ENCOUNTER → 2020-03-02 | Outpatient (CLI) | payer MEDICARE, OTHER ==
[2020-03-02 12:39] LABS: Basophils # (auto) 0 10 ^3/uL (0-0.2); Lymphocytes # (auto) 0.6 10 ^3/uL (0.4-5.4); Monocytes # (auto) 0.6 10 ^3/uL (0-1.3); Nucleated Red Blood Cells % 0.1 %; White Blood Cell 5.2 10^3/uL (4.4-10.8)
[2020-03-02 12:41] LABS: Basophils % (auto) 0.8 % (0.0-2.0); Eosinophils # (auto) 0.2 10 ^3/uL (0-0.8); Eosinophils % (auto) 3.2 % (0.0-7.0); Hematocrit 31.2 % (36.0-46.0); Lymphocytes % (auto) 12.1 % (10.0-50.0); Mean Corpuscular Hemoglobin 34.9 pg (28.0-32.0); Mean Corpuscular Hgb Conc. 35.4 g/dL (32.0-36.0); Mean Corpuscular Volume 98.6 fL (80.0-100.0); Monocytes % (auto) 11.8 % (0.0-12.0); Neutrophils # (auto) 3.7 10 ^3/uL (1.6-8.6); Neutrophils % (auto) 72.1 % (37.0-80.0); Platelet Count (auto) 77 10^3/uL (140-450); Red Blood Cells 3.16 10^6/uL (4.0-5.20); Red Cell Distribution Width 15.5 % (11.8-14.3)
[2020-03-02 13:02] LABS: Albumin 3.2 g/dL (3.4-5.0); Calcium 9.1 mg/dL (8.5-10.1); Potassium 4.7 mmol/L (3.5-5.1)
[2020-03-02 13:06] LABS: BUN/Creatinine Ratio 14.5; Bilirubin, Total 1.4 mg/dL (0.2-1.0); Total Protein 8.2 g/dL (6.4-8.2)
[2020-03-02 13:10] LABS: % Iron Saturation 41.5 % (15-50)
[2020-03-02 13:11] LABS: Ferritin 138.8 ng/mL (10-322)
[2020-03-02 13:12] LABS: Folate (Folic Acid) > 24.00 ng/mL (5.38-24)
== END | disposition home or self-care (01) ==
LOC: LAB 12:11
PROVIDERS: ATTEND Internal Medicine
DX: D69.3 Immune thrombocytopenic purpura (principal); D64.9 Anemia, unspecified
CPT/HCPCS: 36415; 80053; 82607; 82728; 82746; 83540; 83550; 83615; 85025

== ENCOUNTER → 2020-03-08 | Day surgery (SDC) | payer MEDICARE, OTHER ==
[2020-03-02 12:38] LABS: Basophils # (auto) 0 10 ^3/uL (0-0.2); Basophils % (auto) 0.4 % (0.0-2.0); Eosinophils # (auto) 0.2 10 ^3/uL (0-0.8); Eosinophils % (auto) 3.3 % (0.0-7.0); Hemoglobin 10.9 g/dL (12.2-16.2); Lymphocytes # (auto) 0.6 10 ^3/uL (0.4-5.4); Lymphocytes % (auto) 10.9 % (10.0-50.0); Mean Corpuscular Hgb Conc. 34.2 g/dL (32.0-36.0); Mean Corpuscular Volume 99.4 fL (80.0-100.0); Monocytes # (auto) 0.6 10 ^3/uL (0-1.3); Monocytes % (auto) 12.4 % (0.0-12.0); Neutrophils # (auto) 3.7 10 ^3/uL (1.6-8.6); Nucleated Red Blood Cells % 0.1 %; Platelet Count (auto) 78 10^3/uL (140-450); Red Blood Cells 3.22 10^6/uL (4.0-5.20); Red Cell Distribution Width 15.4 % (11.8-14.3); White Blood Cell 5.1 10^3/uL (4.4-10.8)
[2020-03-02 12:54] LABS: INR 0.99 (0.9-1.15); Partial Thromboplastin Time 28.4 sec (23.0-31.2)
[~2020-03-08] VITALS: Ht 144.8 cm; Wt 60.8 kg
[~2020-03-08] MED LIST changes: -CALCTAB20 OR; +FLUMAZENIL 0.1 MG/ML INJ 10ML MDV IV ONE; -FOLI1TAB6 OR; -FURO1TAB33 PO; +LIDOCAINE VISCOUS 2% 15ML UD ONE; +MIDAZOLAM HCL 5 MG/ML-1ML VIAL ONE; -MULTCAP45 PO; +NALOXONE HCL 0.4 MG/ML VIAL ONE; -PRO20T PO; -SITA100T7 OR; +SODIUM CHLORIDE LOCK 10 ML ONE; +diphenhdrAMINE HCL 50 MG/1 ML VL ONE; +fentaNYL CITRATE 100 MCG/2 ML VL ONE
[2020-03-08 10:40] VITALS: BP 112/51
== END | disposition home or self-care (01) ==
LOC: GI 09:15
PROVIDERS: ATTEND Internal Medicine Gastroenterology
DX: R13.10 Dysphagia, unspecified (principal); K74.60 Unspecified cirrhosis of liver; K76.6 Portal hypertension; K31.89 Other diseases of stomach and duodenum; K29.70 Gastritis, unspecified, without bleeding; I85.00 Esophageal varices without bleeding; D64.9 Anemia, unspecified; Z98.890 Other specified postprocedural states; Z79.899 Other long term (current) drug therapy; Z20.828 Contact with and (suspected) exposure to other viral communicable diseases
CPT/HCPCS: 36415; 43450; 82962; 85025; 85610; 85730; J2250; J3010; J7030; U0003

== ENCOUNTER → 2020-03-20 | Outpatient (CLI) | payer MEDICARE, OTHER ==
[~2020-03-20] MED LIST changes: -FLUMAZENIL 0.1 MG/ML INJ 10ML MDV IV ONE; -LIDOCAINE VISCOUS 2% 15ML UD ONE; -MIDAZOLAM HCL 5 MG/ML-1ML VIAL ONE; -NALOXONE HCL 0.4 MG/ML VIAL ONE; -SODIUM CHLORIDE LOCK 10 ML ONE; -diphenhdrAMINE HCL 50 MG/1 ML VL ONE; -fentaNYL CITRATE 100 MCG/2 ML VL ONE
[2020-03-20 10:56] LABS: Basophils # (auto) 0 10 ^3/uL (0-0.2); Basophils % (auto) 0.5 % (0.0-2.0); Eosinophils # (auto) 0.2 10 ^3/uL (0-0.8); Eosinophils % (auto) 2.1 % (0.0-7.0); Hematocrit 31.9 % (36.0-46.0); Lymphocytes # (auto) 0.7 10 ^3/uL (0.4-5.4); Lymphocytes % (auto) 9.2 % (10.0-50.0); Mean Corpuscular Hgb Conc. 34.4 g/dL (32.0-36.0); Monocytes # (auto) 0.8 10 ^3/uL (0-1.3); Monocytes % (auto) 11.4 % (0.0-12.0); Neutrophils # (auto) 5.7 10 ^3/uL (1.6-8.6); Neutrophils % (auto) 76.8 % (37.0-80.0); Platelet Count (auto) 94 10^3/uL (140-450); Red Blood Cells 3.23 10^6/uL (4.0-5.20); Red Cell Distribution Width 15.4 % (11.8-14.3); White Blood Cell 7.4 10^3/uL (4.4-10.8)
[2020-03-20 11:15] LABS: Albumin 3.2 g/dL (3.4-5.0); Calcium 9.8 mg/dL (8.5-10.1)
[2020-03-20 11:20] LABS: Bilirubin, Total 1.4 mg/dL (0.2-1.0); Total Protein 8.4 g/dL (6.4-8.2)
== END | disposition home or self-care (01) ==
LOC: LAB 10:44
PROVIDERS: ATTEND Internal Medicine
DX: K74.60 Unspecified cirrhosis of liver (principal)
CPT/HCPCS: 36415; 80053; 82140; 85025

== ENCOUNTER → 2020-03-28 | Outpatient (CLI) | payer MEDICARE, OTHER ==
[2020-03-28 10:53] LABS: Potassium 4.7 mmol/L (3.5-5.1)
[2020-03-28 10:58] LABS: BUN/Creatinine Ratio 13.7; Calcium 9.6 mg/dL (8.5-10.1)
== END | disposition home or self-care (01) ==
LOC: LAB 09:34
PROVIDERS: ATTEND Internal Medicine Gastroenterology
DX: K74.60 Unspecified cirrhosis of liver (principal)
CPT/HCPCS: 36415; 80048; 82140

== ENCOUNTER → 2020-04-05 | Outpatient (CLI) | payer MEDICARE, OTHER ==
[2020-04-05 11:22] LABS: Albumin 3.2 g/dL (3.4-5.0); Calcium 9.4 mg/dL (8.5-10.1); Potassium 4.4 mmol/L (3.5-5.1)
[2020-04-05 11:26] LABS: BUN/Creatinine Ratio 12.2; Bilirubin, Total 1.1 mg/dL (0.2-1.0); Total Protein 7.9 g/dL (6.4-8.2)
== END | disposition home or self-care (01) ==
LOC: LAB 10:40
PROVIDERS: ATTEND Internal Medicine Gastroenterology
DX: K72.90 Hepatic failure, unspecified without coma (principal); K74.60 Unspecified cirrhosis of liver
CPT/HCPCS: 36415; 80053; 82140

== ENCOUNTER → 2020-04-27 | Outpatient (CLI) | payer MEDICARE, OTHER ==
[2020-04-27 14:56] LABS: Basophils # (auto) 0 10 ^3/uL (0-0.2); Eosinophils # (auto) 0.2 10 ^3/uL (0-0.8); Hemoglobin 9.9 g/dL (12.2-16.2); Lymphocytes # (auto) 0.5 10 ^3/uL (0.4-5.4); Mean Corpuscular Hemoglobin 34.5 pg (28.0-32.0); Mean Corpuscular Hgb Conc. 33.4 g/dL (32.0-36.0); Monocytes # (auto) 0.6 10 ^3/uL (0-1.3); Platelet Count (auto) 72 10^3/uL (140-450); Red Blood Cells 2.87 10^6/uL (4.0-5.20)
[2020-04-27 14:58] LABS: Basophils % (auto) 0.6 % (0.0-2.0); Eosinophils % (auto) 4.3 % (0.0-7.0); Hematocrit 29.7 % (36.0-46.0); Lymphocytes % (auto) 10.3 % (10.0-50.0); Mean Corpuscular Volume 103.2 fL (80.0-100.0); Monocytes % (auto) 12.1 % (0.0-12.0); Neutrophils # (auto) 3.6 10 ^3/uL (1.6-8.6); Neutrophils % (auto) 72.7 % (37.0-80.0); White Blood Cell 4.9 10^3/uL (4.4-10.8)
[2020-04-27 15:27] LABS: BUN/Creatinine Ratio 10.2; Calcium 9.1 mg/dL (8.5-10.1)
== END | disposition home or self-care (01) ==
LOC: LAB 14:33
PROVIDERS: ATTEND Internal Medicine
DX: K74.60 Unspecified cirrhosis of liver (principal)
CPT/HCPCS: 36415; 80048; 82140; 85025

== ENCOUNTER → 2020-05-17 | Outpatient (CLI) | payer MEDICARE, OTHER ==
[2020-05-17 10:58] LABS: Basophils # (auto) 0 10 ^3/uL (0-0.2); Eosinophils # (auto) 0.1 10 ^3/uL (0-0.8); Eosinophils % (auto) 1.9 % (0.0-7.0); Hematocrit 27.5 % (36.0-46.0); Hemoglobin 9.6 g/dL (12.2-16.2); Lymphocytes # (auto) 0.4 10 ^3/uL (0.4-5.4); Monocytes % (auto) 11.4 % (0.0-12.0); Nucleated Red Blood Cells % 0.1 %
[2020-05-17 11:00] LABS: Basophils % (auto) 0.5 % (0.0-2.0); Lymphocytes % (auto) 7.9 % (10.0-50.0); Mean Corpuscular Hemoglobin 35.5 pg (28.0-32.0); Mean Corpuscular Hgb Conc. 34.9 g/dL (32.0-36.0); Mean Corpuscular Volume 101.6 fL (80.0-100.0); Monocytes # (auto) 0.6 10 ^3/uL (0-1.3); Neutrophils # (auto) 3.8 10 ^3/uL (1.6-8.6); Neutrophils % (auto) 78.3 % (37.0-80.0); Platelet Count (auto) 95 10^3/uL (140-450); Red Cell Distribution Width 15.9 % (11.8-14.3); White Blood Cell 4.9 10^3/uL (4.4-10.8)
[2020-05-17 11:21] LABS: Albumin 3.2 g/dL (3.4-5.0); Calcium 9.6 mg/dL (8.5-10.1); Potassium 4.6 mmol/L (3.5-5.1)
[2020-05-17 11:24] LABS: BUN/Creatinine Ratio 11.7; Bilirubin, Total 1.7 mg/dL (0.2-1.0)
== END | disposition home or self-care (01) ==
LOC: LAB 10:43
PROVIDERS: ATTEND Internal Medicine Gastroenterology
DX: K74.60 Unspecified cirrhosis of liver (principal)
CPT/HCPCS: 36415; 80053; 82140; 85025

== ENCOUNTER → 2020-05-23 | Outpatient (CLI) | payer MEDICARE, OTHER ==
[~2020-05-23] MED LIST changes: +ALLO100T PO; +FERR-20 PO; +FERR27TA2 PO; +FOLI1TAB6 PO; +FURO20TA3 PO; +INSUINJ18 SC; +LEVO50TA7 PO; +MULT-688 PO; +[UNRECOGNIZED DRUG - CODE] IM
[2020-05-23 10:41] LABS: Urine Bacteria FEW /hpf (None Seen); Urine Blood Negative /uL (Negative); Urine Hyaline Cast FEW /lpf (0 - 2); Urine Specific Gravity 1.008 (1.001-1.035); Urine WBC 34 /hpf (0 - 5)
[2020-05-23 11:20] LABS: Creatinine, Urine 46 mg/dL (30.0-125.0); Protein, Urine < 5.0 mg/dL (0.0-11.9)
== END | disposition home or self-care (01) ==
LOC: LAB 10:01
PROVIDERS: ATTEND Internal Medicine Nephrology
DX: N18.30 Chronic kidney disease, stage 3 unspecified (principal); E21.3 Hyperparathyroidism, unspecified; E56.9 Vitamin deficiency, unspecified; R80.9 Proteinuria, unspecified
CPT/HCPCS: 36415; 81001; 82306; 82570; 83970; 84100; 84156; 87086

== ENCOUNTER → 2020-06-26 | Outpatient (CLI) | payer MEDICARE, OTHER ==
[~2020-06-26] MED LIST changes: -ALLO100T PO; -FERR-20 PO; -FERR27TA2 PO; -FOLI1TAB6 PO; -FURO20TA3 PO; -INSUINJ18 SC; -LEVO50TA7 PO; -MULT-688 PO; -[UNRECOGNIZED DRUG - CODE] IM
[2020-06-26 12:09] LABS: Basophils # (auto) 0 10 ^3/uL (0-0.2); Eosinophils # (auto) 0.1 10 ^3/uL (0-0.8); Lymphocytes # (auto) 0.4 10 ^3/uL (0.4-5.4); Monocytes # (auto) 0.5 10 ^3/uL (0-1.3); Monocytes % (auto) 12.2 % (0.0-12.0); Neutrophils # (auto) 3.2 10 ^3/uL (1.6-8.6); Red Blood Cells 2.92 10^6/uL (4.0-5.20); Red Cell Distribution Width 15.9 % (11.8-14.3); White Blood Cell 4.3 10^3/uL (4.4-10.8)
[2020-06-26 12:11] LABS: Basophils % (auto) 0.5 % (0.0-2.0); Eosinophils % (auto) 2.9 % (0.0-7.0); Hematocrit 30.1 % (36.0-46.0); Hemoglobin 10.2 g/dL (12.2-16.2); Lymphocytes % (auto) 9.6 % (10.0-50.0); Mean Corpuscular Hgb Conc. 33.9 g/dL (32.0-36.0); Mean Corpuscular Volume 103.2 fL (80.0-100.0); Neutrophils % (auto) 74.8 % (37.0-80.0); Platelet Count (auto) 74 10^3/uL (140-450)
[2020-06-26 13:39] LABS: Potassium 5.3 mmol/L (3.5-5.1)
[2020-06-26 13:42] LABS: BUN/Creatinine Ratio 15.3; Bilirubin, Total 1.1 mg/dL (0.2-1.0); Phosphorus 3.5 mg/dL (2.5-4.90); Uric Acid 12.2 mg/dL (2.6-6.0)
== END | disposition home or self-care (01) ==
LOC: LAB 11:20
PROVIDERS: ATTEND Internal Medicine Nephrology
DX: E11.22 Type 2 diabetes mellitus with diabetic chronic kidney disease (principal); N18.30 Chronic kidney disease, stage 3 unspecified; D63.1 Anemia in chronic kidney disease; E21.3 Hyperparathyroidism, unspecified; M10.9 Gout, unspecified
CPT/HCPCS: 36415; 80053; 82043; 83036; 83970; 84100; 84550; 85025

== ENCOUNTER → 2020-08-08 | Outpatient (CLI) | payer MEDICARE, OTHER ==
[2020-08-08 11:58] LABS: Urine Blood Negative /uL (Negative); Urine Specific Gravity 1.007 (1.001-1.035)
[2020-08-08 11:59] LABS: Basophils # (auto) 0 10 ^3/uL (0-0.2); Eosinophils # (auto) 0.2 10 ^3/uL (0-0.8); Hemoglobin 10.6 g/dL (12.2-16.2); Lymphocytes # (auto) 0.7 10 ^3/uL (0.4-5.4); Lymphocytes % (auto) 11.8 % (10.0-50.0); Monocytes # (auto) 0.7 10 ^3/uL (0-1.3); Neutrophils # (auto) 4.1 10 ^3/uL (1.6-8.6); Nucleated Red Blood Cells % 0.1 %; Red Blood Cells 3.03 10^6/uL (4.0-5.20)
[2020-08-08 12:04] LABS: Basophils % (auto) 0.8 % (0.0-2.0); Eosinophils % (auto) 3.3 % (0.0-7.0); Hematocrit 30.6 % (36.0-46.0); Mean Corpuscular Hemoglobin 35.1 pg (28.0-32.0); Mean Corpuscular Hgb Conc. 34.7 g/dL (32.0-36.0); Mean Corpuscular Volume 101.1 fL (80.0-100.0); Monocytes % (auto) 11.9 % (0.0-12.0); Neutrophils % (auto) 72.2 % (37.0-80.0); Platelet Count (auto) 76 10^3/uL (140-450); Red Cell Distribution Width 15.8 % (11.8-14.3); White Blood Cell 5.6 10^3/uL (4.4-10.8)
[2020-08-08 12:16] LABS: Potassium 4.7 mmol/L (3.5-5.1)
[2020-08-08 12:18] LABS: INR 0.98 (0.9-1.15); Partial Thromboplastin Time 28.9 sec (23.0-31.2)
[2020-08-08 12:19] LABS: Free T4 (Free Thyroxine) 0.84 ng/dL (0.89-1.76)
[2020-08-08 12:20] LABS: Folate (Folic Acid) 19.28 ng/mL (5.38-24)
[2020-08-08 12:25] LABS: Albumin 3.2 g/dL (3.4-5.0); BUN/Creatinine Ratio 16.4; Bilirubin, Direct 0.7 mg/dL (0-0.2); Bilirubin, Total 1.3 mg/dL (0.2-1.0); Calcium 8.9 mg/dL (8.5-10.1); Total Protein 8.4 g/dL (6.4-8.2)
== END | disposition home or self-care (01) ==
LOC: LAB 08:22
PROVIDERS: ATTEND Internal Medicine Cardiovascular Disease
DX: D51.3 Other dietary vitamin B12 deficiency anemia (principal); E11.9 Type 2 diabetes mellitus without complications; E55.9 Vitamin D deficiency, unspecified; D64.9 Anemia, unspecified; R00.2 Palpitations; R53.1 Weakness; R30.0 Dysuria; I11.0 Hypertensive heart disease with heart failure; I50.9 Heart failure, unspecified
CPT/HCPCS: 36415; 80053; 80061; 81003; 82248; 82306; 82607; 82668; 82746; 83010; 83036; 83540; 83550; 83615; 84439; 84443; 85025; 85045; 85610; 85730; 86880

== ENCOUNTER 2020-10-20 09:40 | Inpatient (IN) | payer MEDICARE, OTHER ==
[~2020-10-20] VITALS: Ht 149.9 cm; Wt 67.1 kg
[2020-10-20] MEDS ORDERED: SODIUM CHLORIDE 0.9% 1,000 ML IV ONE (10:15)
[2020-10-20] MEDS: ONDANSETRON HCL 4 MG/2 ML VIAL IV ONE ×2 (10:27→12:43)
[2020-10-20 10:58] LABS: Basophils # (auto) 0 10 ^3/uL (0-0.2); Eosinophils # (auto) 0 10 ^3/uL (0-0.8); Hemoglobin 9.8 g/dL (12.2-16.2); Lymphocytes # (auto) 0.4 10 ^3/uL (0.4-5.4); Monocytes # (auto) 0.7 10 ^3/uL (0-1.3); Red Cell Distribution Width 16.4 % (11.8-14.3)
[2020-10-20 11:00] LABS: Basophils % (auto) 0.5 % (0.0-2.0); Eosinophils % (auto) 0.5 % (0.0-7.0); Hematocrit 28.5 % (36.0-46.0); Lymphocytes % (auto) 4.7 % (10.0-50.0); Mean Corpuscular Hemoglobin 36.3 pg (28.0-32.0); Mean Corpuscular Hgb Conc. 34.4 g/dL (32.0-36.0); Mean Corpuscular Volume 105.5 fL (80.0-100.0); Monocytes % (auto) 8.4 % (0.0-12.0); Neutrophils # (auto) 6.9 10 ^3/uL (1.6-8.6); Neutrophils % (auto) 85.9 % (37.0-80.0); Nucleated Red Blood Cells % 0.2 %; Platelet Count (auto) 122 10^3/uL (140-450)
[2020-10-20 11:06] LABS: Urine Bacteria NONE SEEN /hpf (None Seen); Urine Blood Negative /uL (Negative); Urine Specific Gravity 1.006 (1.001-1.035); Urine WBC 2 /hpf (0 - 5)
[2020-10-20 11:11] LABS: INR 1.01 (0.9-1.15); Partial Thromboplastin Time 27.2 sec (23.0-31.2)
[2020-10-20 11:17] LABS: Chloride 93 mmol/L (98-107); Sodium 126 mmol/L (136-145)
[2020-10-20 11:27] LABS: Alanine Aminotransferase 59 U/L (13-56); Albumin 3.2 g/dL (3.4-5.0); Alkaline Phosphatase 230 U/L (45-117); Anion Gap 13 (5-15); Aspartate Aminotransferase 55 U/L (15-37); BUN/Creatinine Ratio 22.5; Bilirubin, Total 1.4 mg/dL (0.2-1.0); Blood Urea Nitrogen 39 mg/dL (7-18); Calcium 9.8 mg/dL (8.5-10.1); Carbon Dioxide 20 mmol/L (21-32); GFR African American 37 mL/min; GFR Non-African American 30 mL/min; Glucose 348 mg/dL (74-106); Lipase 496 U/L (73-393); Magnesium 2.1 mg/dL (1.6-2.6)
[2020-10-20] MEDS ORDERED: MORPHINE SULF INJ 2 MG/ML SYRINGE 1ML IV ONE (12:30)
[2020-10-20] MEDS ORDERED: NITROGLYCERIN 0.4 MG SL TAB SL PRN (13:45)
[2020-10-20] MEDS ORDERED: ONDANSETRON HCL 4 MG/2 ML VIAL IV PRN (13:45)
[2020-10-20] MEDS ORDERED: MORPHINE SULF INJ 2 MG/ML SYRINGE 1ML IV PRN ×2 (13:45)
[2020-10-20] MEDS ORDERED: HYDROcodone-ACET 5/325MG TAB PO PRN (13:45)
[2020-10-20] MEDS ORDERED: DEXTROSE (50%) 50ML SYRG IV PRN (13:45)
[2020-10-20] MEDS ORDERED: ACETAMINOPHEN 500 MG TAB PO PRN (13:45)
[2020-10-20] MEDS: PROPRANOLOL HCL 20 MG TAB PO SCH ×2 (13:45→21:43)
[2020-10-20 16:11] VITALS: BP 165/79
[2020-10-20] MEDS ORDERED: FOLI1TAB6 PO (16:52)
[2020-10-20] MEDS ORDERED: FERR27TA2 PO (16:52)
[2020-10-20] MEDS: ACCU-CHEK COMFORT CURVE STRIP VI SCH ×2 (17:04→22:04)
[2020-10-20] MEDS: InsuLIN REG 1unit/0.01ml Soln (100units/ml) SC SCH ×2 (17:47→22:10)
[2020-10-20 22:00] VITALS: BP 117/47
[2020-10-21 04:49] VITALS: BP 114/49
[2020-10-21] MEDS: ACCU-CHEK COMFORT CURVE STRIP VI SCH ×2 (06:19→11:50)
[2020-10-21] MEDS: InsuLIN REG 1unit/0.01ml Soln (100units/ml) SC SCH ×2 (06:21→11:52)
[2020-10-21 09:00] VITALS: BP 132/45
[2020-10-21] MEDS: PROPRANOLOL HCL 20 MG TAB PO SCH (09:13)
[2020-10-21] MEDS: PANTOPRAZOLE 40 MG TAB PO SCH (09:32)
[2020-10-21] MEDS: FUROSEMIDE 40 MG TAB PO SCH (09:32)
[2020-10-21] MEDS ORDERED: LACTULOSE 20Gm/30ML SOLN PO SCH (10:00)
[2020-10-21 10:24] LABS: Basophils # (auto) 0 10 ^3/uL (0-0.2); Eosinophils # (auto) 0.1 10 ^3/uL (0-0.8); Eosinophils % (auto) 1.1 % (0.0-7.0); Lymphocytes # (auto) 0.6 10 ^3/uL (0.4-5.4); Mean Corpuscular Hemoglobin 36.5 pg (28.0-32.0); Mean Corpuscular Hgb Conc. 34.5 g/dL (32.0-36.0); Mean Corpuscular Volume 105.7 fL (80.0-100.0); Monocytes # (auto) 0.6 10 ^3/uL (0-1.3)
[2020-10-21 10:26] LABS: Basophils % (auto) 0.4 % (0.0-2.0); Hematocrit 25.5 % (36.0-46.0); Hemoglobin 8.8 g/dL (12.2-16.2); Monocytes % (auto) 7.6 % (0.0-12.0); Neutrophils # (auto) 7.1 10 ^3/uL (1.6-8.6); Neutrophils % (auto) 83.9 % (37.0-80.0); Platelet Count (auto) 123 10^3/uL (140-450); Red Blood Cells 2.41 10^6/uL (4.0-5.20); Red Cell Distribution Width 16.6 % (11.8-14.3); White Blood Cell 8.5 10^3/uL (4.4-10.8)
[2020-10-21 10:45] LABS: Albumin 2.7 g/dL (3.4-5.0); Calcium 8.9 mg/dL (8.5-10.1); Potassium 4.5 mmol/L (3.5-5.1)
[2020-10-21 10:47] LABS: % Iron Saturation 18.4 % (15-50)
[2020-10-21 10:51] LABS: Bilirubin, Total 1.3 mg/dL (0.2-1.0)
[2020-10-21] MEDS: SPIRONOLACTONE 25 MG TAB PO SCH (12:16)
[2020-10-21 13:00] VITALS: BP 118/49
[2020-10-21] MEDS ORDERED: INSULIN LANTUS (GLARGINE) 1 /0.01ml (100units/ml) SC SCH ×2 (13:30→22:00)
[2020-10-21] MEDS ORDERED: InsuLIN REG 1unit/0.01ml Soln (100units/ml) SC PRN (13:45)
[2020-10-21 17:00] VITALS: BP 128/52
[2020-10-21] MEDS ORDERED: ACCU-CHEK COMFORT CURVE STRIP VI SCH ×2 (18:00→22:00)
[2020-10-21 22:00] VITALS: BP 123/68
[2020-10-21] MEDS ORDERED: InsuLIN REG 1unit/0.01ml Soln (100units/ml) SC SCH (22:00)
[2020-10-22 05:00] VITALS: BP 104/48
[2020-10-22 06:08] LABS: Basophils # (auto) 0 10 ^3/uL (0-0.2); Basophils % (auto) 0.5 % (0.0-2.0); Eosinophils # (auto) 0.1 10 ^3/uL (0-0.8); Hemoglobin 8.6 g/dL (12.2-16.2); Lymphocytes # (auto) 0.7 10 ^3/uL (0.4-5.4); Mean Corpuscular Hemoglobin 36.7 pg (28.0-32.0); Monocytes # (auto) 0.7 10 ^3/uL (0-1.3)
[2020-10-22 06:11] LABS: Eosinophils % (auto) 0.9 % (0.0-7.0); Hematocrit 24.4 % (36.0-46.0); Lymphocytes % (auto) 9.7 % (10.0-50.0); Mean Corpuscular Hgb Conc. 35.4 g/dL (32.0-36.0); Mean Corpuscular Volume 103.7 fL (80.0-100.0); Monocytes % (auto) 9.1 % (0.0-12.0); Neutrophils # (auto) 5.9 10 ^3/uL (1.6-8.6); Neutrophils % (auto) 79.8 % (37.0-80.0); Nucleated Red Blood Cells % 0.1 %; Platelet Count (auto) 110 10^3/uL (140-450); Red Blood Cells 2.35 10^6/uL (4.0-5.20); Red Cell Distribution Width 16.1 % (11.8-14.3); White Blood Cell 7.4 10^3/uL (4.4-10.8)
[2020-10-22 06:32] LABS: Chloride 96 mmol/L (98-107); Potassium 4.5 mmol/L (3.5-5.1); Sodium 128 mmol/L (136-145)
[2020-10-22 06:44] LABS: Alanine Aminotransferase 51 U/L (13-56); Albumin 2.5 g/dL (3.4-5.0); Alkaline Phosphatase 186 U/L (45-117); Amylase 68 U/L (25-115); Anion Gap 8 (5-15); Aspartate Aminotransferase 51 U/L (15-37); BUN/Creatinine Ratio 25.6; Bilirubin, Total 1.1 mg/dL (0.2-1.0); Blood Urea Nitrogen 46 mg/dL (7-18); Calcium 8.5 mg/dL (8.5-10.1); Carbon Dioxide 24 mmol/L (21-32); GFR African American 35 mL/min; GFR Non-African American 29 mL/min; Glucose 221 mg/dL (74-106); Lipase 359 U/L (73-393); Total Protein 6.7 g/dL (6.4-8.2)
[2020-10-22 09:00] VITALS: BP 130/67
[2020-10-22] MEDS ORDERED: DEXTROSE (50%) 50ML SYRG IV PRN (09:15)
[2020-10-22 09:22] LABS: Folate (Folic Acid) 23.46 ng/mL (5.38-24)
[2020-10-22] MEDS ORDERED: INSULIN LANTUS (GLARGINE) 1 /0.01ml (100units/ml) SC ONE (09:45)
[2020-10-22] MEDS ORDERED: LACTULOSE 20Gm/30ML SOLN PO SCH (10:00)
[2020-10-22 10:59] LABS: Hepatitis B Surface Antibody Negative
[2020-10-22 11:37] LABS: Hepatitis A Total Antibody Positive
[2020-10-22 12:03] LABS: Hepatitis B Core Total AB Negative; Hepatitis B Surface Antigen Negative (Negative); Hepatitis C Antibody Negative (Negative)
[2020-10-22] MEDS: PANTOPRAZOLE 40 MG TAB PO SCH (12:12)
[2020-10-22] MEDS: SPIRONOLACTONE 25 MG TAB PO SCH (12:12)
[2020-10-22] MEDS: FUROSEMIDE 40 MG TAB PO SCH (12:13)
[2020-10-22] MEDS: ACCU-CHEK COMFORT CURVE STRIP VI SCH ×3 (12:13→22:38)
[2020-10-22] MEDS: InsuLIN REG 1unit/0.01ml Soln (100units/ml) SC SCH ×3 (12:13→22:41)
[2020-10-22 13:00] VITALS: BP 126/50
[2020-10-22] MEDS ORDERED: LEVO50TA7 PO (16:35)
[2020-10-22] MEDS ORDERED: ALLO100T PO (16:35)
[2020-10-22] MEDS ORDERED: INSUINJ18 SC (16:35)
[2020-10-22] MEDS ORDERED: FERR-20 PO (16:35)
[2020-10-22] MEDS ORDERED: MULT-688 PO (16:35)
[2020-10-22] MEDS ORDERED: [UNRECOGNIZED DRUG - CODE] IM (16:35)
[2020-10-22 17:00] VITALS: BP 91/39
[2020-10-22 18:22] VITALS: BP 117/53
[2020-10-22] MEDS: LACTULOSE 20Gm/30ML SOLN PO SCH (18:23)
[2020-10-22 22:00] VITALS: BP 119/56
[2020-10-22] MEDS: INSULIN LANTUS (GLARGINE) 1 /0.01ml (100units/ml) SC SCH (22:41)
[2020-10-23] VITALS (7 sets, daily range): BP systolic 109–150; BP diastolic 48–99
[2020-10-23] MEDS: LACTULOSE 20Gm/30ML SOLN PO SCH ×4 (05:59→23:12)
[2020-10-23] MEDS: ACCU-CHEK COMFORT CURVE STRIP VI SCH ×4 (06:00→21:57)
[2020-10-23] MEDS: InsuLIN REG 1unit/0.01ml Soln (100units/ml) SC SCH ×4 (06:16→21:56)
[2020-10-23] MEDS: INSULIN LANTUS (GLARGINE) 1 /0.01ml (100units/ml) SC SCH ×2 (06:17→21:57)
[2020-10-23 06:31] LABS: Potassium 5.1 mmol/L (3.5-5.1)
[2020-10-23 06:43] LABS: Albumin 2.7 g/dL (3.4-5.0); BUN/Creatinine Ratio 21.9; Bilirubin, Total 1.1 mg/dL (0.2-1.0); Calcium 8.7 mg/dL (8.5-10.1); Total Protein 7.1 g/dL (6.4-8.2)
[2020-10-23] MEDS: SPIRONOLACTONE 25 MG TAB PO SCH (09:45)
[2020-10-23] MEDS: FUROSEMIDE 40 MG TAB PO SCH (09:45)
[2020-10-23] MEDS: PANTOPRAZOLE 40 MG TAB PO SCH (09:46)
[2020-10-23 10:04] LABS: Eosinophils # (auto) 0.1 10 ^3/uL (0-0.8); Eosinophils % (auto) 0.6 % (0.0-7.0); Hemoglobin 9.3 g/dL (12.2-16.2); Monocytes # (auto) 0.8 10 ^3/uL (0-1.3); Monocytes % (auto) 8.7 % (0.0-12.0); Neutrophils # (auto) 7.3 10 ^3/uL (1.6-8.6); Nucleated Red Blood Cells % 0.1 %; Red Cell Distribution Width 16.4 % (11.8-14.3)
[2020-10-23 10:08] LABS: Basophils # (auto) 0.1 10 ^3/uL (0-0.2); Basophils % (auto) 0.6 % (0.0-2.0); Hematocrit 26.4 % (36.0-46.0); Lymphocytes # (auto) 0.7 10 ^3/uL (0.4-5.4); Mean Corpuscular Hemoglobin 37.3 pg (28.0-32.0); Mean Corpuscular Hgb Conc. 35.3 g/dL (32.0-36.0); Mean Corpuscular Volume 105.6 fL (80.0-100.0); Neutrophils % (auto) 82.1 % (37.0-80.0); Platelet Count (auto) 141 10^3/uL (140-450); White Blood Cell 8.9 10^3/uL (4.4-10.8)
[2020-10-23] MEDS ORDERED: LEVOTHYROXINE SODIUM 50 MCG TAB PO ONE (10:30)
[2020-10-23] MEDS ORDERED: ALLOPURINOL 100 MG TAB PO ONE (10:30)
[2020-10-23] MEDS ORDERED: glipiZIDE 5 MG TAB PO ONE (10:30)
[2020-10-23] MEDS: SODIUM CHLORIDE 0.9% 1,000 ML IV SCH (11:30)
[2020-10-24] VITALS (7 sets, daily range): BP systolic 125–146; BP diastolic 55–79
[2020-10-24] MEDS: SODIUM CHLORIDE 0.9% 1,000 ML IV SCH ×2 (03:10→09:50)
[2020-10-24] MEDS: LACTULOSE 20Gm/30ML SOLN PO SCH ×3 (06:23→21:35)
[2020-10-24] MEDS: LEVOTHYROXINE SODIUM 50 MCG TAB PO SCH (06:24)
[2020-10-24] MEDS: glipiZIDE 5 MG TAB PO SCH (06:24)
[2020-10-24] MEDS: ACCU-CHEK COMFORT CURVE STRIP VI SCH ×4 (06:25→21:34)
[2020-10-24] MEDS: InsuLIN REG 1unit/0.01ml Soln (100units/ml) SC SCH ×4 (06:30→21:34)
[2020-10-24] MEDS: INSULIN LANTUS (GLARGINE) 1 /0.01ml (100units/ml) SC SCH ×2 (06:31→21:34)
[2020-10-24 07:40] LABS: Potassium 4.6 mmol/L (3.5-5.1)
[2020-10-24 07:42] LABS: BUN/Creatinine Ratio 19.6; Calcium 8.4 mg/dL (8.5-10.1)
[2020-10-24] MEDS: PANTOPRAZOLE 40 MG TAB PO SCH (09:51)
[2020-10-24] MEDS: ALLOPURINOL 100 MG TAB PO SCH (09:51)
[2020-10-25] MEDS: SODIUM CHLORIDE 0.9% 1,000 ML IV SCH (04:53)
[2020-10-25 05:00] VITALS: BP 138/64
[2020-10-25 05:21] LABS: Eosinophils # (auto) 0.1 10 ^3/uL (0-0.8); Hemoglobin 8.4 g/dL (12.2-16.2); Mean Corpuscular Hemoglobin 36.6 pg (28.0-32.0); Mean Corpuscular Volume 104.6 fL (80.0-100.0)
[2020-10-25 05:24] LABS: Basophils # (auto) 0.1 10 ^3/uL (0-0.2); Basophils % (auto) 0.7 % (0.0-2.0); Eosinophils % (auto) 1.6 % (0.0-7.0); Lymphocytes # (auto) 0.7 10 ^3/uL (0.4-5.4); Lymphocytes % (auto) 8.2 % (10.0-50.0); Monocytes % (auto) 12.6 % (0.0-12.0); Neutrophils # (auto) 6.4 10 ^3/uL (1.6-8.6); Neutrophils % (auto) 76.9 % (37.0-80.0); Platelet Count (auto) 108 10^3/uL (140-450); Red Blood Cells 2.29 10^6/uL (4.0-5.20); Red Cell Distribution Width 16.4 % (11.8-14.3); White Blood Cell 8.3 10^3/uL (4.4-10.8)
[2020-10-25 05:41] LABS: Calcium 7.9 mg/dL (8.5-10.1); Potassium 4.5 mmol/L (3.5-5.1)
[2020-10-25 05:46] LABS: Albumin 2.5 g/dL (3.4-5.0); BUN/Creatinine Ratio 17.6; Bilirubin, Total 1.4 mg/dL (0.2-1.0); Total Protein 6.5 g/dL (6.4-8.2)
[2020-10-25] MEDS: InsuLIN REG 1unit/0.01ml Soln (100units/ml) SC SCH ×2 (06:17→12:01)
[2020-10-25] MEDS: ACCU-CHEK COMFORT CURVE STRIP VI SCH ×2 (06:17→11:46)
[2020-10-25] MEDS: LEVOTHYROXINE SODIUM 50 MCG TAB PO SCH (06:19)
[2020-10-25] MEDS: glipiZIDE 5 MG TAB PO SCH (06:19)
[2020-10-25] MEDS: INSULIN LANTUS (GLARGINE) 1 /0.01ml (100units/ml) SC SCH (06:31)
[2020-10-25 08:44] VITALS: BP 129/51
[2020-10-25] MEDS: LACTULOSE 20Gm/30ML SOLN PO SCH (09:23)
[2020-10-25] MEDS: PANTOPRAZOLE 40 MG TAB PO SCH (09:23)
[2020-10-25] MEDS: ALLOPURINOL 100 MG TAB PO SCH (09:23)
[2020-10-25 12:08] VITALS: BP 129/51
[2020-10-25 12:30] VITALS: BP 122/59
== END 2020-10-25 14:00 | disposition home or self-care (01) | DRG 432 ==
LOC: EDBD 09:40 → ER 09:40 → TELE 13:43 → TELE-CENTR 16:57
PROVIDERS: ADMIT Nurse Practitioner Acute Care; ATTEND Internal Medicine
DX: K74.60 Unspecified cirrhosis of liver (principal); N17.0 Acute kidney failure with tubular necrosis; R18.8 Other ascites; K76.6 Portal hypertension; E87.1 Hypo-osmolality and hyponatremia; E44.0 Moderate protein-calorie malnutrition; I13.0 Hypertensive heart and chronic kidney disease with heart failure and stage 1 through stage 4 chronic kidney disease, or unspecified chronic kidney disease; D69.6 Thrombocytopenia, unspecified; D63.8 Anemia in other chronic diseases classified elsewhere; E11.21 Type 2 diabetes mellitus with diabetic nephropathy; E11.40 Type 2 diabetes mellitus with diabetic neuropathy, unspecified; E11.65 Type 2 diabetes mellitus with hyperglycemia; N18.30 Chronic kidney disease, stage 3 unspecified; D53.9 Nutritional anemia, unspecified; Z20.822 Contact with and (suspected) exposure to COVID-19; E03.9 Hypothyroidism, unspecified; E11.22 Type 2 diabetes mellitus with diabetic chronic kidney disease; I70.90 Unspecified atherosclerosis; I50.9 Heart failure, unspecified; M10.9 Gout, unspecified; Z79.4 Long term (current) use of insulin; Z90.49 Acquired absence of other specified parts of digestive tract; Z68.28 Body mass index [BMI] 28.0-28.9, adult; Z79.899 Other long term (current) drug therapy; Z82.49 Family history of ischemic heart disease and other diseases of the circulatory system; Z88.8 Allergy status to other drugs, medicaments and biological substances
CPT/HCPCS: 36415; 71045; 74176; 76700; 80048; 80053; 81001; 82140; 82150; 82270; 82607; 82728; 82746; 82962; 83010; 83036; 83540; 83550; 83690; 83735; 83880; 84443; 84484; 84550; 85025; 85045; 85610; 85730; 86704; 86706; 86708; 86803; 87340; 87426; 93005; 96361; 96374; 96375; 97116; 97530; G0378; J1815; J2405

== ENCOUNTER 2020-11-06 14:22 | Inpatient (IN) | payer MEDICARE, OTHER ==
[~2020-11-06] VITALS: Ht 157.5 cm; Wt 66.0 kg
[~2020-11-06 14:22] MED LIST changes: +ALLO100T PO; +FERR-20 PO; +FOLI1TAB6 PO; +INSUINJ18 SC; +LEVO50TA7 PO; -METF-370 PO; +MULT-688 PO; +[UNRECOGNIZED DRUG - CODE] IM
[2020-11-06] MEDS ORDERED: cefTRIAXone 1GM/50ML D5W 50 ML IV ONE (14:30)
[2020-11-06] MEDS ORDERED: IBUPROFEN 400 MG TAB PO ONE (15:00)
[2020-11-06 15:15] LABS: Basophils # (auto) 0 10 ^3/uL (0-0.2); Basophils % (auto) 0.2 % (0.0-2.0); Eosinophils # (auto) 0 10 ^3/uL (0-0.8); Eosinophils % (auto) 0.1 % (0.0-7.0); Hematocrit 22.7 % (36.0-46.0); Hemoglobin 7.5 g/dL (12.2-16.2); Lymphocytes # (auto) 0.4 10 ^3/uL (0.4-5.4); Lymphocytes % (auto) 2.5 % (10.0-50.0); Mean Corpuscular Hemoglobin 35.6 pg (28.0-32.0); Mean Corpuscular Hgb Conc. 32.9 g/dL (32.0-36.0); Monocytes # (auto) 0.9 10 ^3/uL (0-1.3); Monocytes % (auto) 5.2 % (0.0-12.0); Neutrophils # (auto) 15.7 10 ^3/uL (1.6-8.6); Nucleated Red Blood Cells % 0.1 %; Red Cell Distribution Width 18.1 % (11.8-14.3); White Blood Cell 17.1 10^3/uL (4.4-10.8)
[2020-11-06 15:28] LABS: Urine Bacteria NONE SEEN /hpf (None Seen); Urine Blood Negative /uL (Negative); Urine Hyaline Cast FEW /lpf (0 - 2); Urine Specific Gravity 1.008 (1.001-1.035); Urine WBC 1 /hpf (0 - 5)
[2020-11-06 15:34] LABS: Alanine Aminotransferase 43 U/L (13-56); Albumin 2.6 g/dL (3.4-5.0); Anion Gap 9 (5-15); Aspartate Aminotransferase 44 U/L (15-37); Blood Urea Nitrogen 33 mg/dL (7-18); Calcium 8.6 mg/dL (8.5-10.1); Carbon Dioxide 23 mmol/L (21-32); Chloride 98 mmol/L (98-107); GFR African American 30 mL/min; GFR Non-African American 25 mL/min; Glucose 270 mg/dL (74-106); Potassium 4.7 mmol/L (3.5-5.1); Sodium 130 mmol/L (136-145)
[2020-11-06 15:35] LABS: INR 1.08 (0.9-1.15); Partial Thromboplastin Time 26.8 sec (23.0-31.2)
[2020-11-06 15:36] LABS: Lactic Acid w/Reflex 2.2 mmol/L (0.4-2.0)
[2020-11-06 15:39] LABS: Alkaline Phosphatase 211 U/L (45-117); Bilirubin, Total 1.6 mg/dL (0.2-1.0); Total Protein 6.8 g/dL (6.4-8.2)
[2020-11-06] MEDS ORDERED: HYDROcodone-ACET 5/325MG TAB PO PRN (15:45)
[2020-11-06] MEDS ORDERED: ONDANSETRON HCL 4 MG/2 ML VIAL IV PRN (15:45)
[2020-11-06] MEDS ORDERED: ACETAMINOPHEN 500 MG TAB PO PRN (15:45)
[2020-11-06] MEDS ORDERED: MORPHINE SULFATE INJECTION 2 MG/ML SYRG IV PRN ×2 (15:45)
[2020-11-06] MEDS ORDERED: NITROGLYCERIN 0.4 MG SL TAB SL PRN (15:45)
[2020-11-06] MEDS ORDERED: FUROSEMIDE 20 MG/2 ML VIAL IV SCH (16:03)
[2020-11-06] MEDS: DOXYCYCLINE 100MG/250ML 250 ML IV SCH (16:23)
[2020-11-06] MEDS ORDERED: SODIUM CHLORIDE 0.9% 1,000 ML IV ONE (17:30)
[2020-11-06] MEDS ORDERED: PANTOPRAZOLE 40 MG/10 ML VIAL INJ IV ONE (17:30)
[2020-11-06] MEDS: metroNIDAZOLE 500MG/100ML 100 ML IV SCH ×2 (18:10→22:11)
[2020-11-06 18:54] VITALS: BP 105/52
[2020-11-06 18:59] VITALS: BP 104/57
[2020-11-06 19:04] VITALS: BP 112/65
[2020-11-06 19:09] VITALS: BP 110/62
[2020-11-06] MEDS ORDERED: DEXTROSE (50%) 50ML SYRG IV PRN (20:45)
[2020-11-06] MEDS ORDERED: FUROSEMIDE 40 MG TAB PO ONE (20:45)
[2020-11-06 21:45] VITALS: BP 98/51
[2020-11-06] MEDS ORDERED: PANTOPRAZOLE 40 MG TAB PO SCH (22:00)
[2020-11-06] MEDS: InsuLIN REG 1unit/0.01ml Soln (100units/ml) SC SCH (22:00)
[2020-11-06] MEDS: INSULIN LANTUS (GLARGINE) 1 /0.01ml (100units/ml) SC SCH (22:00)
[2020-11-06] MEDS: LACTULOSE 20Gm/30ML SOLN PO SCH (22:11)
[2020-11-06] MEDS: PANTOPRAZOLE 40 MG/10 ML VIAL INJ IV SCH (22:11)
[2020-11-06] MEDS: rifAXIMin 550 MG TAB PO SCH (22:11)
[2020-11-06] MEDS: ACCU-CHEK COMFORT CURVE STRIP VI SCH (22:28)
[2020-11-06 22:45] VITALS: BP 127/74
[2020-11-07] MEDS: DOXYCYCLINE 100MG/250ML 250 ML IV SCH (03:07)
[2020-11-07 03:40] VITALS: BP 113/51
[2020-11-07 04:05] VITALS: BP 102/55
[2020-11-07] MEDS: LACTULOSE 20Gm/30ML SOLN PO SCH ×3 (05:44→21:56)
[2020-11-07 06:15] VITALS: BP 120/62
[2020-11-07] MEDS: metroNIDAZOLE 500MG/100ML 100 ML IV SCH (06:24)
[2020-11-07] MEDS: LEVOTHYROXINE SODIUM 50 MCG TAB PO SCH (06:25)
[2020-11-07] MEDS: INSULIN LANTUS (GLARGINE) 1 /0.01ml (100units/ml) SC SCH ×2 (06:25→22:06)
[2020-11-07] MEDS: ACCU-CHEK COMFORT CURVE STRIP VI SCH ×4 (06:26→22:00)
[2020-11-07] MEDS: InsuLIN REG 1unit/0.01ml Soln (100units/ml) SC SCH ×4 (06:26→22:06)
[2020-11-07] MEDS ORDERED: glipiZIDE 5 MG TAB PO SCH (07:00)
[2020-11-07] MEDS ORDERED: cefTRIAXone 1GM/50ML D5W 50 ML IV SCH (09:00)
[2020-11-07 09:03] LABS: Basophils # (auto) 0 10 ^3/uL (0-0.2); Eosinophils # (auto) 0.1 10 ^3/uL (0-0.8); Eosinophils % (auto) 1.4 % (0.0-7.0); Lymphocytes # (auto) 0.7 10 ^3/uL (0.4-5.4); Mean Corpuscular Volume 96.5 fL (80.0-100.0); Nucleated Red Blood Cells % 0.1 %; White Blood Cell 9.9 10^3/uL (4.4-10.8)
[2020-11-07 09:05] LABS: Basophils % (auto) 0.3 % (0.0-2.0); Hematocrit 27.7 % (36.0-46.0); Lymphocytes % (auto) 6.9 % (10.0-50.0); Mean Corpuscular Hemoglobin 34.6 pg (28.0-32.0); Mean Corpuscular Hgb Conc. 35.9 g/dL (32.0-36.0); Neutrophils % (auto) 81.4 % (37.0-80.0); Red Blood Cells 2.88 10^6/uL (4.0-5.20); Red Cell Distribution Width 19.5 % (11.8-14.3)
[2020-11-07 09:19] LABS: Albumin 2.1 g/dL (3.4-5.0); Calcium 8.1 mg/dL (8.5-10.1)
[2020-11-07 09:22] LABS: BUN/Creatinine Ratio 18.9; Bilirubin, Total 3.5 mg/dL (0.2-1.0); Total Protein 5.5 g/dL (6.4-8.2)
[2020-11-07] MEDS ORDERED: FUROSEMIDE 40 MG TAB PO SCH (10:00)
[2020-11-07] MEDS ORDERED: SPIRONOLACTONE 25 MG TAB PO SCH (10:00)
[2020-11-07 11:03] LABS: Sodium Urine 55 mmol/L (40-220)
[2020-11-07 11:08] LABS: Creatinine, Urine 45 mg/dL (30.0-125.0)
[2020-11-07] MEDS ORDERED: ALBUMIN 25% 50 ML IV SCH ×2 (11:45→13:45)
[2020-11-07] MEDS: PANTOPRAZOLE 40 MG/10 ML VIAL INJ IV SCH ×2 (11:57→22:40)
[2020-11-07] MEDS: FERROUS SULFATE 325mg EC TAB PO SCH (11:58)
[2020-11-07] MEDS: CHOLECALCIFEROL (VITD3) 2,000 UNIT CAP/TAB PO SCH (11:58)
[2020-11-07] MEDS: FOLIC ACID 1 MG TAB PO SCH (11:58)
[2020-11-07] MEDS: rifAXIMin 550 MG TAB PO SCH ×2 (11:59→22:41)
[2020-11-07] MEDS: ALLOPURINOL 100 MG TAB PO SCH (11:59)
[2020-11-07] MEDS: MIDODRINE HCL 10 MG TAB PO SCH ×2 (12:45→17:49)
[2020-11-07 12:46] VITALS: BP 100/50
[2020-11-07] MEDS: PIPERACILLIN-TAZO 4.5GM 100 ML IV SCH ×2 (15:06→22:40)
[2020-11-07 16:59] VITALS: BP 101/49
[2020-11-07 22:00] VITALS: BP 109/48
[2020-11-08 05:00] VITALS: BP 95/43
[2020-11-08 05:09] LABS: Basophils # (auto) 0 10 ^3/uL (0-0.2); Eosinophils # (auto) 0.2 10 ^3/uL (0-0.8); Hemoglobin 8.7 g/dL (12.2-16.2); Lymphocytes # (auto) 0.7 10 ^3/uL (0.4-5.4); Nucleated Red Blood Cells % 0.1 %
[2020-11-08 05:11] LABS: Basophils % (auto) 0.5 % (0.0-2.0); Eosinophils % (auto) 3.2 % (0.0-7.0); Hematocrit 25.2 % (36.0-46.0); Mean Corpuscular Hemoglobin 34.2 pg (28.0-32.0); Mean Corpuscular Hgb Conc. 34.6 g/dL (32.0-36.0); Monocytes # (auto) 0.8 10 ^3/uL (0-1.3); Monocytes % (auto) 12.1 % (0.0-12.0); Neutrophils # (auto) 4.5 10 ^3/uL (1.6-8.6); Neutrophils % (auto) 73.2 % (37.0-80.0); Red Blood Cells 2.55 10^6/uL (4.0-5.20); White Blood Cell 6.2 10^3/uL (4.4-10.8)
[2020-11-08 05:13] LABS: Red Cell Distribution Width 20.5 % (11.8-14.3)
[2020-11-08 05:28] LABS: Albumin 2.3 g/dL (3.4-5.0); Calcium 7.9 mg/dL (8.5-10.1); Potassium 3.7 mmol/L (3.5-5.1)
[2020-11-08 05:31] LABS: BUN/Creatinine Ratio 18.1; Bilirubin, Total 2.1 mg/dL (0.2-1.0); Phosphorus 2.7 mg/dL (2.5-4.90); Total Protein 5.1 g/dL (6.4-8.2)
[2020-11-08] MEDS: LACTULOSE 20Gm/30ML SOLN PO SCH (06:00)
[2020-11-08] MEDS: PIPERACILLIN-TAZO 4.5GM 100 ML IV SCH (06:41)
[2020-11-08] MEDS: ACCU-CHEK COMFORT CURVE STRIP VI SCH ×4 (06:42→21:47)
[2020-11-08] MEDS: LEVOTHYROXINE SODIUM 50 MCG TAB PO SCH (06:42)
[2020-11-08] MEDS: INSULIN LANTUS (GLARGINE) 1 /0.01ml (100units/ml) SC SCH ×2 (06:42→21:51)
[2020-11-08] MEDS: InsuLIN REG 1unit/0.01ml Soln (100units/ml) SC SCH ×4 (06:42→21:56)
[2020-11-08] MEDS: MIDODRINE HCL 10 MG TAB PO SCH ×3 (06:42→17:53)
[2020-11-08 08:00] VITALS: BP_SYST 123; BP_SYST 98; BP_DIAS 48; BP_DIAS 51
[2020-11-08] MEDS ORDERED: LIDOCAINE VISCOUS 2% 15ML UD ONE (08:45)
[2020-11-08] MEDS ORDERED: fentaNYL CITRATE 100 MCG/2 ML VL ONE (08:46)
[2020-11-08] MEDS ORDERED: MIDAZOLAM HCL 5 MG/ML-1ML VIAL ONE (08:46)
[2020-11-08] MEDS ORDERED: diphenhdrAMINE HCL 50 MG/1 ML VL ONE (08:46)
[2020-11-08] MEDS: FOLIC ACID 1 MG TAB PO SCH (10:00)
[2020-11-08] MEDS ORDERED: MIDODRINE HCL 10 MG TAB PO ONE (10:00)
[2020-11-08] MEDS: ALLOPURINOL 100 MG TAB PO SCH (10:00)
[2020-11-08] MEDS: CHOLECALCIFEROL (VITD3) 2,000 UNIT CAP/TAB PO SCH (10:00)
[2020-11-08] MEDS: FERROUS SULFATE 325mg EC TAB PO SCH (10:00)
[2020-11-08] MEDS: rifAXIMin 550 MG TAB PO SCH ×2 (10:00→21:47)
[2020-11-08] MEDS: PANTOPRAZOLE 40 MG/10 ML VIAL INJ IV SCH ×2 (11:14→21:44)
[2020-11-08 12:30] VITALS: BP 119/55
[2020-11-08] MEDS: PIPERACILLIN-TAZOB 3.375GM 100 ML IV SCH ×2 (14:02→21:47)
[2020-11-08 16:49] VITALS: BP 113/51
[2020-11-08 22:40] VITALS: BP 116/54
[2020-11-09 05:18] LABS: Basophils % (auto) 0.8 % (0.0-2.0); Lymphocytes # (auto) 0.6 10 ^3/uL (0.4-5.4); Monocytes # (auto) 0.8 10 ^3/uL (0-1.3); Neutrophils # (auto) 4.8 10 ^3/uL (1.6-8.6); White Blood Cell 6.5 10^3/uL (4.4-10.8)
[2020-11-09 05:23] LABS: Basophils # (auto) 0.1 10 ^3/uL (0-0.2); Eosinophils # (auto) 0.2 10 ^3/uL (0-0.8); Eosinophils % (auto) 3.5 % (0.0-7.0); Hematocrit 26.3 % (36.0-46.0); Hemoglobin 9.1 g/dL (12.2-16.2); Lymphocytes % (auto) 9.9 % (10.0-50.0); Mean Corpuscular Hemoglobin 35.2 pg (28.0-32.0); Mean Corpuscular Hgb Conc. 34.8 g/dL (32.0-36.0); Mean Corpuscular Volume 101.2 fL (80.0-100.0); Monocytes % (auto) 11.6 % (0.0-12.0); Neutrophils % (auto) 74.2 % (37.0-80.0); Red Blood Cells 2.59 10^6/uL (4.0-5.20); Red Cell Distribution Width 20.3 % (11.8-14.3)
[2020-11-09 05:29] VITALS: BP 108/43
[2020-11-09 05:37] LABS: Albumin 2.2 g/dL (3.4-5.0); Calcium 7.9 mg/dL (8.5-10.1); Potassium 4.1 mmol/L (3.5-5.1)
[2020-11-09 05:41] LABS: BUN/Creatinine Ratio 17.2; Bilirubin, Total 1.4 mg/dL (0.2-1.0); Total Protein 5.2 g/dL (6.4-8.2)
[2020-11-09] MEDS: PIPERACILLIN-TAZOB 3.375GM 100 ML IV SCH (05:42)
[2020-11-09] MEDS: MIDODRINE HCL 10 MG TAB PO SCH ×3 (05:43→17:35)
[2020-11-09] MEDS: LEVOTHYROXINE SODIUM 50 MCG TAB PO SCH (06:16)
[2020-11-09] MEDS: ACCU-CHEK COMFORT CURVE STRIP VI SCH ×4 (06:41→21:45)
[2020-11-09] MEDS: InsuLIN REG 1unit/0.01ml Soln (100units/ml) SC SCH ×4 (06:48→21:45)
[2020-11-09] MEDS: INSULIN LANTUS (GLARGINE) 1 /0.01ml (100units/ml) SC SCH ×2 (07:04→21:45)
[2020-11-09 08:00] VITALS: BP 103/61
[2020-11-09] MEDS: PANTOPRAZOLE 40 MG/10 ML VIAL INJ IV SCH ×2 (09:33→21:44)
[2020-11-09] MEDS: rifAXIMin 550 MG TAB PO SCH ×2 (09:34→21:44)
[2020-11-09] MEDS: CHOLECALCIFEROL (VITD3) 2,000 UNIT CAP/TAB PO SCH (09:34)
[2020-11-09] MEDS: FERROUS SULFATE 325mg EC TAB PO SCH (09:34)
[2020-11-09] MEDS: ALLOPURINOL 100 MG TAB PO SCH (09:34)
[2020-11-09] MEDS: FOLIC ACID 1 MG TAB PO SCH (09:34)
[2020-11-09] MEDS ORDERED: SPIRONOLACTONE 25 MG TAB PO ONE (10:30)
[2020-11-09] MEDS ORDERED: FUROSEMIDE 20 MG TAB PO ONE (10:30)
[2020-11-09 10:53] VITALS: BP 114/65
[2020-11-09] MEDS ORDERED: BENZOCAINE (DENTAL) 20 % SPRAY 60ML MT ONE (11:17)
[2020-11-09 12:00] VITALS: BP 109/53
[2020-11-09 16:00] VITALS: BP 136/57
[2020-11-09 22:30] VITALS: BP 114/48
[2020-11-10 05:25] VITALS: BP 112/60
[2020-11-10] MEDS: MIDODRINE HCL 10 MG TAB PO SCH (06:19)
[2020-11-10] MEDS: InsuLIN REG 1unit/0.01ml Soln (100units/ml) SC SCH (06:19)
[2020-11-10] MEDS: LEVOTHYROXINE SODIUM 50 MCG TAB PO SCH (06:19)
[2020-11-10] MEDS: ACCU-CHEK COMFORT CURVE STRIP VI SCH (06:20)
[2020-11-10] MEDS: INSULIN LANTUS (GLARGINE) 1 /0.01ml (100units/ml) SC SCH (06:21)
[2020-11-10 06:31] LABS: Albumin 2.2 g/dL (3.4-5.0); Bilirubin, Total 1.4 mg/dL (0.2-1.0); Calcium 7.9 mg/dL (8.5-10.1); Total Protein 5.7 g/dL (6.4-8.2)
[2020-11-10 08:57] LABS: Hemoglobin 9.6 g/dL (12.2-16.2)
[2020-11-10 08:59] LABS: Hematocrit 28.1 % (36.0-46.0)
[2020-11-10 09:00] VITALS: BP 118/60
[2020-11-10] MEDS: PANTOPRAZOLE 40 MG/10 ML VIAL INJ IV SCH (09:44)
[2020-11-10] MEDS: FERROUS SULFATE 325mg EC TAB PO SCH (09:45)
[2020-11-10] MEDS: FOLIC ACID 1 MG TAB PO SCH (09:45)
[2020-11-10] MEDS: rifAXIMin 550 MG TAB PO SCH (09:46)
[2020-11-10] MEDS: ALLOPURINOL 100 MG TAB PO SCH (09:46)
[2020-11-10] MEDS: CHOLECALCIFEROL (VITD3) 2,000 UNIT CAP/TAB PO SCH (09:46)
[2020-11-10] MEDS ORDERED: levoFLOXacin 250 MG TAB PO SCH (10:00)
[2020-11-10] MEDS ORDERED: SPIRONOLACTONE 25 MG TAB PO SCH (10:00)
[2020-11-10] MEDS ORDERED: FUROSEMIDE 20 MG TAB PO SCH (10:00)
== END 2020-11-10 10:10 | disposition home or self-care (01) | DRG 871 ==
LOC: ER 14:22 → EDBD 14:22 → TELE 15:43 → TELE-CENTR 18:00
PROVIDERS: ADMIT Nurse Practitioner Acute Care; ATTEND Internal Medicine
PROC: 30233N1 Transfusion of Nonautologous Red Blood Cells into Peripheral Vein, Percutaneous Approach (ICD-10-PCS; 2020-11-06)
PROC: 0W9G3ZZ Drainage of Peritoneal Cavity, Percutaneous Approach (ICD-10-PCS; principal; 2020-11-07)
PROC: 0W3P8ZZ Control Bleeding in Gastrointestinal Tract, Via Natural or Artificial Opening Endoscopic (ICD-10-PCS; 2020-11-08)
DX: A41.50 Gram-negative sepsis, unspecified (principal); N17.0 Acute kidney failure with tubular necrosis; G92 Toxic encephalopathy; K65.2 Spontaneous bacterial peritonitis; K55.21 Angiodysplasia of colon with hemorrhage; R18.8 Other ascites; E87.1 Hypo-osmolality and hyponatremia; E44.0 Moderate protein-calorie malnutrition; R65.20 Severe sepsis without septic shock; D69.6 Thrombocytopenia, unspecified; E11.9 Type 2 diabetes mellitus without complications; E66.9 Obesity, unspecified; Z20.822 Contact with and (suspected) exposure to COVID-19; K74.60 Unspecified cirrhosis of liver; M10.9 Gout, unspecified; D50.0 Iron deficiency anemia secondary to blood loss (chronic); E03.9 Hypothyroidism, unspecified; E11.22 Type 2 diabetes mellitus with diabetic chronic kidney disease; E11.40 Type 2 diabetes mellitus with diabetic neuropathy, unspecified; I12.9 Hypertensive chronic kidney disease with stage 1 through stage 4 chronic kidney disease, or unspecified chronic kidney disease; K74.69 Other cirrhosis of liver; N18.30 Chronic kidney disease, stage 3 unspecified; Z68.26 Body mass index [BMI] 26.0-26.9, adult; Z79.4 Long term (current) use of insulin; Z79.890 Hormone replacement therapy; Z79.899 Other long term (current) drug therapy; Z87.11 Personal history of peptic ulcer disease; Z90.49 Acquired absence of other specified parts of digestive tract
CPT/HCPCS: 36415; 43255; 49083; 51702; 71045; 76700; 76775; 76942; 80053; 81001; 82140; 82570; 82962; 83605; 83735; 83880; 84100; 84300; 84484; 84550; 85014; 85018; 85025; 85610; 85730; 86850; 86900; 86901; 86920; 87040; 87077; 87081; 87086; 87186; 87205; 87426; 89051; 93005; 96365; 96367; C9113; G0378; J0696; J1815; J2250; J2405; J2543; J3490

== ENCOUNTER 2020-11-14 11:19 | Inpatient (IN) | payer MEDICARE, OTHER ==
[~2020-11-14] VITALS: Ht 144.8 cm; Wt 67.5 kg
[2020-11-14 12:46] LABS: Albumin 2.7 g/dL (3.4-5.0); Anion Gap 7 (5-15); Blood Urea Nitrogen 35 mg/dL (7-18); Calcium 8.4 mg/dL (8.5-10.1); Carbon Dioxide 23 mmol/L (21-32); Chloride 103 mmol/L (98-107); Glucose 202 mg/dL (74-106); Potassium 4.4 mmol/L (3.5-5.1); Sodium 133 mmol/L (136-145)
[2020-11-14 12:50] LABS: Alanine Aminotransferase 30 U/L (13-56); Alkaline Phosphatase 199 U/L (45-117); Aspartate Aminotransferase 51 U/L (15-37); BUN/Creatinine Ratio 16.4; Bilirubin, Total 1.5 mg/dL (0.2-1.0); GFR African American 29 mL/min; GFR Non-African American 24 mL/min; Total Protein 6.9 g/dL (6.4-8.2)
[2020-11-14 12:59] LABS: Urine Bacteria FEW /hpf (None Seen); Urine Blood Negative /uL (Negative); Urine Specific Gravity 1.008 (1.001-1.035); Urine WBC 1 /hpf (0 - 5)
[2020-11-14 13:11] LABS: Basophils # (auto) 0 10 ^3/uL (0-0.2); Basophils % (auto) 0.5 % (0.0-2.0); Eosinophils # (auto) 0.2 10 ^3/uL (0-0.8); Lymphocytes # (auto) 0.7 10 ^3/uL (0.4-5.4)
[2020-11-14 13:14] LABS: Eosinophils % (auto) 3.6 % (0.0-7.0); Hematocrit 30.2 % (36.0-46.0); Hemoglobin 10.1 g/dL (12.2-16.2); Lymphocytes % (auto) 11.9 % (10.0-50.0); Mean Corpuscular Hemoglobin 34.7 pg (28.0-32.0); Mean Corpuscular Hgb Conc. 33.5 g/dL (32.0-36.0); Mean Corpuscular Volume 103.7 fL (80.0-100.0); Neutrophils # (auto) 3.9 10 ^3/uL (1.6-8.6); Nucleated Red Blood Cells % 0.3 %; Platelet Count (auto) 80 10^3/uL (140-450); Red Blood Cells 2.92 10^6/uL (4.0-5.20); Red Cell Distribution Width 21.8 % (11.8-14.3); White Blood Cell 5.9 10^3/uL (4.4-10.8)
[2020-11-14 13:36] LABS: INR 1.05 (0.9-1.15); Partial Thromboplastin Time 28.8 sec (23.0-31.2)
[2020-11-14] MEDS ORDERED: MORPHINE SULF INJ 2 MG/ML SYRINGE 1ML IV PRN ×2 (15:00)
[2020-11-14] MEDS ORDERED: ONDANSETRON HCL 4 MG/2 ML VIAL IV PRN (15:00)
[2020-11-14] MEDS ORDERED: NITROGLYCERIN 0.4 MG SL TAB SL PRN (15:00)
[2020-11-14] MEDS: levoFLOXacin 250 MG TAB PO SCH (15:19)
[2020-11-14 17:00] VITALS: BP 127/61
[2020-11-14 22:00] VITALS: BP 128/53
[2020-11-15] MEDS ORDERED: DEXTROSE (50%) 50ML SYRG IV PRN (03:00)
[2020-11-15 05:00] VITALS: BP 114/50
[2020-11-15] MEDS: LEVOTHYROXINE SODIUM 50 MCG TAB PO SCH (06:15)
[2020-11-15] MEDS: ACCU-CHEK COMFORT CURVE STRIP VI SCH ×4 (06:15→21:29)
[2020-11-15] MEDS: InsuLIN REG 1unit/0.01ml Soln (100units/ml) SC SCH ×4 (06:16→21:33)
[2020-11-15 08:00] VITALS: BP 145/75
[2020-11-15 08:36] VITALS: BP 145/75
[2020-11-15] MEDS: FERROUS SULFATE 325mg EC TAB PO SCH (09:34)
[2020-11-15] MEDS: ALLOPURINOL 100 MG TAB PO SCH (09:35)
[2020-11-15] MEDS: levoFLOXacin 250 MG TAB PO SCH (09:35)
[2020-11-15] MEDS ORDERED: SPIRONOLACTONE 25 MG TAB PO SCH (10:00)
[2020-11-15] MEDS ORDERED: FUROSEMIDE 40 MG TAB PO SCH (10:00)
[2020-11-15] MEDS ORDERED: PANTOPRAZOLE 40 MG TAB PO ONE (11:15)
[2020-11-15 12:32] VITALS: BP 120/52
[2020-11-15 16:47] VITALS: BP 119/55
[2020-11-15 20:38] LABS: BUN/Creatinine Ratio 21.1; Calcium 8.3 mg/dL (8.5-10.1); Potassium 4.8 mmol/L (3.5-5.1)
[2020-11-15] MEDS: SPIRONOLACTONE 25 MG TAB PO SCH (21:29)
[2020-11-15 22:00] VITALS: BP 117/54
[2020-11-16 05:10] VITALS: BP 131/55
[2020-11-16 05:47] LABS: Calcium 8.3 mg/dL (8.5-10.1); Potassium 4.7 mmol/L (3.5-5.1)
[2020-11-16 05:49] LABS: BUN/Creatinine Ratio 22.9
[2020-11-16] MEDS: ACCU-CHEK COMFORT CURVE STRIP VI SCH ×2 (06:30→12:40)
[2020-11-16] MEDS: LEVOTHYROXINE SODIUM 50 MCG TAB PO SCH (06:30)
[2020-11-16] MEDS: InsuLIN REG 1unit/0.01ml Soln (100units/ml) SC SCH ×2 (06:31→12:41)
[2020-11-16 08:32] VITALS: BP 109/53
[2020-11-16] MEDS: ALLOPURINOL 100 MG TAB PO SCH (09:13)
[2020-11-16] MEDS: SPIRONOLACTONE 25 MG TAB PO SCH (09:13)
[2020-11-16] MEDS: FERROUS SULFATE 325mg EC TAB PO SCH (09:14)
[2020-11-16] MEDS: levoFLOXacin 250 MG TAB PO SCH (09:14)
[2020-11-16] MEDS ORDERED: PANTOPRAZOLE 40 MG TAB PO SCH (10:00)
[2020-11-16] MEDS ORDERED: FOLIC ACID 1 MG TAB PO SCH (10:00)
[2020-11-16 12:32] VITALS: BP 115/55
== END 2020-11-16 15:56 | disposition home or self-care (01) | DRG 432 ==
LOC: ER 11:19 → TELE 15:00 → TELE-CENTR 16:34
PROVIDERS: ADMIT Nurse Practitioner Acute Care; ATTEND Internal Medicine
PROC: 0W9G3ZZ Drainage of Peritoneal Cavity, Percutaneous Approach (ICD-10-PCS; principal; 2020-11-14)
DX: K74.60 Unspecified cirrhosis of liver (principal); N17.0 Acute kidney failure with tubular necrosis; R18.8 Other ascites; K76.6 Portal hypertension; E44.0 Moderate protein-calorie malnutrition; E11.22 Type 2 diabetes mellitus with diabetic chronic kidney disease; E87.70 Fluid overload, unspecified; E66.9 Obesity, unspecified; E03.9 Hypothyroidism, unspecified; Z20.822 Contact with and (suspected) exposure to COVID-19; I12.9 Hypertensive chronic kidney disease with stage 1 through stage 4 chronic kidney disease, or unspecified chronic kidney disease; M10.9 Gout, unspecified; Z79.84 Long term (current) use of oral hypoglycemic drugs; N18.30 Chronic kidney disease, stage 3 unspecified; Z79.899 Other long term (current) drug therapy; Z68.31 Body mass index [BMI] 31.0-31.9, adult; Z88.8 Allergy status to other drugs, medicaments and biological substances; Z82.49 Family history of ischemic heart disease and other diseases of the circulatory system; Z90.49 Acquired absence of other specified parts of digestive tract
CPT/HCPCS: 36415; 71045; 74176; 76700; 76705; 76942; 80048; 80053; 81001; 82140; 82962; 83880; 84484; 85025; 85610; 85730; 87205; 87426; 93005; G0378; J1815

== ENCOUNTER → 2020-11-21 | Outpatient (CLI) | payer MEDICARE, OTHER ==
[2020-11-21 16:04] LABS: Hemoglobin 8.3 g/dL (12.2-16.2); White Blood Cell 8.3 10^3/uL (4.4-10.8)
[2020-11-21 16:05] LABS: BUN/Creatinine Ratio 20.4; Calcium 9.5 mg/dL (8.5-10.1); Potassium 5.3 mmol/L (3.5-5.1)
[2020-11-21 16:06] LABS: Hematocrit 23.7 % (36.0-46.0); Mean Corpuscular Hemoglobin 36.7 pg (28.0-32.0); Mean Corpuscular Hgb Conc. 35.1 g/dL (32.0-36.0); Mean Corpuscular Volume 104.6 fL (80.0-100.0); Platelet Count (auto) 103 10^3/uL (140-450); Red Blood Cells 2.26 10^6/uL (4.0-5.20)
[2020-11-21 16:11] LABS: Red Cell Distribution Width 20.9 % (11.8-14.3)
[2020-11-21 16:13] LABS: Band Neutrophils % (manual) 0; Basophils % (manual) 0 (0.0-2.0); Blast Cells 0; Metamyelocytes % 0; Myelocytes % 0; Promyelocytes % 0; Reactive Lymphocytes 0
[2020-11-21 16:51] LABS: Eosinophils % (manual) 3 (0-7); Lymphocytes % (manual) 10 (10.0-50.0); Monocytes % (manual) 10 (0-12)
== END | disposition home or self-care (01) ==
LOC: LAB 11:18
PROVIDERS: ATTEND Internal Medicine Cardiovascular Disease
DX: D64.9 Anemia, unspecified (principal); I10 Essential (primary) hypertension
CPT/HCPCS: 36415; 80048; 85007; 85027

== ENCOUNTER 2020-11-23 09:28 | Outpatient (CLI) | payer MEDICARE, OTHER ==
[~2020-11-23] VITALS: Ht 144.8 cm; Wt 61.2 kg
== END 2020-11-23 15:00 | disposition home or self-care (01) ==
LOC: LAB 09:28 → EDSTATUS 11-26 10:47
PROVIDERS: ATTEND Internal Medicine Cardiovascular Disease
DX: Z01.818 Encounter for other preprocedural examination (principal); D64.9 Anemia, unspecified; M10.9 Gout, unspecified; K74.69 Other cirrhosis of liver; K72.90 Hepatic failure, unspecified without coma; I12.9 Hypertensive chronic kidney disease with stage 1 through stage 4 chronic kidney disease, or unspecified chronic kidney disease; E11.22 Type 2 diabetes mellitus with diabetic chronic kidney disease; N18.30 Chronic kidney disease, stage 3 unspecified; Z68.29 Body mass index [BMI] 29.0-29.9, adult; Z20.822 Contact with and (suspected) exposure to COVID-19
CPT/HCPCS: 86850; 86900; 86901; 86920; U0003

== ENCOUNTER 2020-11-25 07:45 | Inpatient (IN) | payer MEDICARE, OTHER ==
[~2020-11-25] VITALS: Ht 144.8 cm; Wt 58.8 kg
[2020-11-25 09:02] LABS: Basophils # (auto) 0 10 ^3/uL (0-0.2); Eosinophils # (auto) 0.1 10 ^3/uL (0-0.8); Lymphocytes # (auto) 0.3 10 ^3/uL (0.4-5.4); Monocytes # (auto) 0.7 10 ^3/uL (0-1.3); Neutrophils % (auto) 81.5 % (37.0-80.0); White Blood Cell 6.1 10^3/uL (4.4-10.8)
[2020-11-25 09:03] LABS: Basophils % (auto) 0.6 % (0.0-2.0); Eosinophils % (auto) 1.7 % (0.0-7.0); Hematocrit 23.7 % (36.0-46.0); Lymphocytes % (auto) 5.3 % (10.0-50.0); Mean Corpuscular Hemoglobin 35.2 pg (28.0-32.0); Mean Corpuscular Hgb Conc. 33.9 g/dL (32.0-36.0); Mean Corpuscular Volume 103.9 fL (80.0-100.0); Monocytes % (auto) 10.9 % (0.0-12.0); Nucleated Red Blood Cells % 0.2 %; Red Blood Cells 2.28 10^6/uL (4.0-5.20)
[2020-11-25 09:05] LABS: Red Cell Distribution Width 22.5 % (11.8-14.3)
[2020-11-25 09:11] LABS: INR 1.03 (0.9-1.15); Partial Thromboplastin Time 23.5 sec (23.0-31.2)
[2020-11-25 09:13] LABS: Albumin 2.8 g/dL (3.4-5.0); Calcium 9.5 mg/dL (8.5-10.1); Potassium 5.2 mmol/L (3.5-5.1)
[2020-11-25 09:16] LABS: Bilirubin, Total 1.5 mg/dL (0.2-1.0)
[2020-11-25 09:19] LABS: Magnesium 1.8 mg/dL (1.6-2.6)
[2020-11-25 09:19] LABS: Urine Bacteria NONE SEEN /hpf (None Seen); Urine Blood Negative /uL (Negative); Urine Specific Gravity 1.005 (1.001-1.035); Urine WBC 2 /hpf (0 - 5)
[2020-11-25] MEDS ORDERED: MORPHINE SULFATE INJECTION 2 MG/ML SYRG IV PRN (13:45)
[2020-11-25] MEDS ORDERED: NITROGLYCERIN 0.4 MG SL TAB SL PRN (13:45)
[2020-11-25] MEDS ORDERED: EPOETIN ALFA-EPBX 10,000 UNIT/1ML VIAL SC ONE (13:57)
[2020-11-25] MEDS ORDERED: SODIUM FERR GLUC 62.5MG/5ML 125 MG in SODIUM CHL 0.9% 100 ML IV SCH (15:00)
[2020-11-25] MEDS ORDERED: DEXTROSE (50%) 50ML SYRG IV PRN (16:00)
[2020-11-25] MEDS: MULTIPLE VITAMINS W/ MINERALS TAB PO SCH (18:11)
[2020-11-25] MEDS: FOLIC ACID 1 MG TAB PO SCH (18:11)
[2020-11-25] MEDS: CHOLECALCIFEROL (VITD3) 1,000UNIT=25mCg TAB PO SCH (18:12)
[2020-11-25] MEDS: InsuLIN REG 1unit/0.01ml Soln (100units/ml) SC SCH ×2 (18:29→23:27)
[2020-11-25] MEDS: ACCU-CHEK COMFORT CURVE STRIP VI SCH ×2 (18:29→23:27)
[2020-11-25 20:05] VITALS: BP 135/56
[2020-11-25 20:15] VITALS: BP 152/77
[2020-11-25 21:52] VITALS: BP 156/72
[2020-11-25 22:45] VITALS: BP 140/65
[2020-11-25 23:00] VITALS: BP 146/68
[2020-11-26] VITALS: BP 144/66
[2020-11-26 06:00] VITALS: BP 135/63
[2020-11-26] MEDS: ACCU-CHEK COMFORT CURVE STRIP VI SCH ×4 (06:17→23:33)
[2020-11-26] MEDS: InsuLIN REG 1unit/0.01ml Soln (100units/ml) SC SCH ×3 (06:18→17:35)
[2020-11-26] MEDS: LEVOTHYROXINE SODIUM 50 MCG TAB PO SCH (06:18)
[2020-11-26] MEDS: FUROSEMIDE 40 MG TAB PO SCH (06:20)
[2020-11-26] MEDS ORDERED: Sitagliptin (Januvia) 100 MG TAB PO SCH (07:00)
[2020-11-26 07:30] LABS: Basophils # (auto) 0 10 ^3/uL (0-0.2); Basophils % (auto) 0.6 % (0.0-2.0); Eosinophils # (auto) 0.3 10 ^3/uL (0-0.8); Eosinophils % (auto) 4.3 % (0.0-7.0); Hematocrit 29.1 % (36.0-46.0); Hemoglobin 9.9 g/dL (12.2-16.2); Lymphocytes # (auto) 0.5 10 ^3/uL (0.4-5.4); Mean Corpuscular Hemoglobin 33.5 pg (28.0-32.0); Mean Corpuscular Hgb Conc. 34.1 g/dL (32.0-36.0); Mean Corpuscular Volume 98.3 fL (80.0-100.0); Monocytes # (auto) 0.8 10 ^3/uL (0-1.3); Monocytes % (auto) 12.7 % (0.0-12.0); Neutrophils # (auto) 4.7 10 ^3/uL (1.6-8.6); Neutrophils % (auto) 74.4 % (37.0-80.0); Nucleated Red Blood Cells % 0.3 %; Red Blood Cells 2.96 10^6/uL (4.0-5.20); Red Cell Distribution Width 22.9 % (11.8-14.3); White Blood Cell 6.3 10^3/uL (4.4-10.8)
[2020-11-26 07:46] LABS: Albumin 2.8 g/dL (3.4-5.0); Calcium 9.7 mg/dL (8.5-10.1); Potassium 4.6 mmol/L (3.5-5.1)
[2020-11-26 07:50] LABS: BUN/Creatinine Ratio 19.5; Bilirubin, Total 4.8 mg/dL (0.2-1.0); Total Protein 6.9 g/dL (6.4-8.2)
[2020-11-26 09:00] VITALS: BP 136/71
[2020-11-26 09:22] LABS: % Iron Saturation 91.3 % (15-50)
[2020-11-26] MEDS ORDERED: LACTULOSE 20Gm/30ML SOLN PO ONE (11:00)
[2020-11-26] MEDS ORDERED: cefTRIAXone 1GM/50ML D5W 50 ML IV ONE (11:00)
[2020-11-26] MEDS: MULTIPLE VITAMINS W/ MINERALS TAB PO SCH (11:33)
[2020-11-26] MEDS: CHOLECALCIFEROL (VITD3) 1,000UNIT=25mCg TAB PO SCH (11:33)
[2020-11-26] MEDS: FOLIC ACID 1 MG TAB PO SCH (11:33)
[2020-11-26] MEDS: ALLOPURINOL 100 MG TAB PO SCH (11:34)
[2020-11-26 13:00] VITALS: BP 118/52
[2020-11-26] MEDS ORDERED: PANTOPRAZOLE 40 MG TAB PO ONE (13:30)
[2020-11-26] MEDS ORDERED: FURO20TA3 PO (16:14)
[2020-11-26 17:00] VITALS: BP 120/53
[2020-11-26] MEDS: LACTULOSE 20Gm/30ML SOLN PO PRN (19:01)
[2020-11-26] MEDS ORDERED: LACTULOSE 20Gm/30ML SOLN PO SCH (22:00)
[2020-11-26 22:20] VITALS: BP 117/60
[2020-11-27] MEDS: InsuLIN REG 1unit/0.01ml Soln (100units/ml) SC SCH ×5 (00:03→23:25)
[2020-11-27 05:12] VITALS: BP 117/52
[2020-11-27 05:54] LABS: Basophils # (auto) 0.1 10 ^3/uL (0-0.2); Basophils % (auto) 0.9 % (0.0-2.0); Eosinophils # (auto) 0.3 10 ^3/uL (0-0.8); Eosinophils % (auto) 4.7 % (0.0-7.0); Hematocrit 26.7 % (36.0-46.0); Hemoglobin 9.5 g/dL (12.2-16.2); Lymphocytes # (auto) 0.7 10 ^3/uL (0.4-5.4); Lymphocytes % (auto) 11.2 % (10.0-50.0); Mean Corpuscular Hemoglobin 34.6 pg (28.0-32.0); Mean Corpuscular Hgb Conc. 35.4 g/dL (32.0-36.0); Mean Corpuscular Volume 97.6 fL (80.0-100.0); Monocytes # (auto) 0.9 10 ^3/uL (0-1.3); Monocytes % (auto) 15.9 % (0.0-12.0); Neutrophils # (auto) 3.9 10 ^3/uL (1.6-8.6); Neutrophils % (auto) 67.3 % (37.0-80.0); Nucleated Red Blood Cells % 0.2 %; Red Blood Cells 2.74 10^6/uL (4.0-5.20); White Blood Cell 5.8 10^3/uL (4.4-10.8)
[2020-11-27] MEDS: ACCU-CHEK COMFORT CURVE STRIP VI SCH ×4 (05:54→23:02)
[2020-11-27 06:20] LABS: Potassium 4.6 mmol/L (3.5-5.1)
[2020-11-27] MEDS: FUROSEMIDE 40 MG TAB PO SCH (06:23)
[2020-11-27] MEDS: LEVOTHYROXINE SODIUM 50 MCG TAB PO SCH (06:24)
[2020-11-27 06:34] LABS: Albumin 2.6 g/dL (3.4-5.0); BUN/Creatinine Ratio 19.5; Bilirubin, Total 1.9 mg/dL (0.2-1.0); Calcium 9.5 mg/dL (8.5-10.1); Total Protein 6.7 g/dL (6.4-8.2)
[2020-11-27 09:03] VITALS: BP 109/64
[2020-11-27] MEDS: PANTOPRAZOLE 40 MG TAB PO SCH (09:18)
[2020-11-27] MEDS: FOLIC ACID 1 MG TAB PO SCH (09:18)
[2020-11-27] MEDS: MULTIPLE VITAMINS W/ MINERALS TAB PO SCH (09:18)
[2020-11-27] MEDS: ALLOPURINOL 100 MG TAB PO SCH (09:18)
[2020-11-27] MEDS: CHOLECALCIFEROL (VITD3) 1,000UNIT=25mCg TAB PO SCH (09:18)
[2020-11-27] MEDS: cefTRIAXone 1GM/50ML D5W 50 ML IV SCH (09:18)
[2020-11-27] MEDS: SPIRONOLACTONE 25 MG TAB PO SCH (09:19)
[2020-11-27] MEDS: LACTULOSE 20Gm/30ML SOLN PO PRN (09:21)
[2020-11-27] MEDS ORDERED: LACTULOSE 20Gm/30ML SOLN PO SCH (12:00)
[2020-11-27 12:40] VITALS: BP 114/59
[2020-11-27 16:27] VITALS: BP 103/48
[2020-11-27 17:24] LABS: % Iron Saturation 33.2 % (15-50)
[2020-11-27] MEDS: rifAXIMin 550 MG TAB PO SCH (21:41)
[2020-11-27 22:00] VITALS: BP 123/60
[2020-11-28 05:00] VITALS: BP 138/51
[2020-11-28 05:17] LABS: Eosinophils # (auto) 0.3 10 ^3/uL (0-0.8); Monocytes # (auto) 0.9 10 ^3/uL (0-1.3)
[2020-11-28 05:19] LABS: Basophils # (auto) 0.1 10 ^3/uL (0-0.2); Basophils % (auto) 1.1 % (0.0-2.0); Eosinophils % (auto) 5.1 % (0.0-7.0); Hematocrit 27.5 % (36.0-46.0); Hemoglobin 9.7 g/dL (12.2-16.2); Lymphocytes # (auto) 0.7 10 ^3/uL (0.4-5.4); Lymphocytes % (auto) 10.3 % (10.0-50.0); Mean Corpuscular Hemoglobin 34.9 pg (28.0-32.0); Mean Corpuscular Hgb Conc. 35.3 g/dL (32.0-36.0); Mean Corpuscular Volume 98.9 fL (80.0-100.0); Monocytes % (auto) 13.7 % (0.0-12.0); Neutrophils # (auto) 4.4 10 ^3/uL (1.6-8.6); Neutrophils % (auto) 69.8 % (37.0-80.0); Nucleated Red Blood Cells % 0.2 %; Red Blood Cells 2.78 10^6/uL (4.0-5.20); Red Cell Distribution Width 21.5 % (11.8-14.3); White Blood Cell 6.3 10^3/uL (4.4-10.8)
[2020-11-28 05:33] LABS: Potassium 4.5 mmol/L (3.5-5.1)
[2020-11-28 05:45] LABS: Albumin 2.6 g/dL (3.4-5.0); BUN/Creatinine Ratio 19.2; Bilirubin, Total 1.3 mg/dL (0.2-1.0); Calcium 9.1 mg/dL (8.5-10.1); Total Protein 6.6 g/dL (6.4-8.2)
[2020-11-28] MEDS: ACCU-CHEK COMFORT CURVE STRIP VI SCH (05:55)
[2020-11-28] MEDS: LEVOTHYROXINE SODIUM 50 MCG TAB PO SCH (05:56)
[2020-11-28] MEDS: FUROSEMIDE 40 MG TAB PO SCH (05:56)
[2020-11-28] MEDS: InsuLIN REG 1unit/0.01ml Soln (100units/ml) SC SCH (06:10)
[2020-11-28 09:00] VITALS: BP 115/51
[2020-11-28] MEDS: cefTRIAXone 1GM/50ML D5W 50 ML IV SCH (09:00)
[2020-11-28] MEDS: SPIRONOLACTONE 25 MG TAB PO SCH (09:33)
[2020-11-28] MEDS: FOLIC ACID 1 MG TAB PO SCH (09:33)
[2020-11-28] MEDS: CHOLECALCIFEROL (VITD3) 1,000UNIT=25mCg TAB PO SCH (09:34)
[2020-11-28] MEDS: MULTIPLE VITAMINS W/ MINERALS TAB PO SCH (09:34)
[2020-11-28] MEDS: PANTOPRAZOLE 40 MG TAB PO SCH (09:34)
[2020-11-28] MEDS: ALLOPURINOL 100 MG TAB PO SCH (09:34)
[2020-11-28] MEDS: rifAXIMin 550 MG TAB PO SCH (10:00)
[2020-12-01] MEDS ORDERED: OCTREOTIDE ACETATE IM SCH (13:30)
== END 2020-11-28 11:14 | disposition home or self-care (01) | DRG 378 ==
LOC: EDUNIT# 07:45 → EDBD 07:45 → ER 07:45 → TELE 13:34 → TELE-CENTR 17:54
PROVIDERS: ADMIT Internal Medicine Cardiovascular Disease; ATTEND Internal Medicine
PROC: 30230N1 Transfusion of Nonautologous Red Blood Cells into Peripheral Vein, Open Approach (ICD-10-PCS; principal; 2020-11-25)
DX: K55.21 Angiodysplasia of colon with hemorrhage (principal); E44.0 Moderate protein-calorie malnutrition; R18.8 Other ascites; K86.1 Other chronic pancreatitis; D68.9 Coagulation defect, unspecified; D50.0 Iron deficiency anemia secondary to blood loss (chronic); K72.90 Hepatic failure, unspecified without coma; K74.60 Unspecified cirrhosis of liver; D69.6 Thrombocytopenia, unspecified; R74.8 Abnormal levels of other serum enzymes; E87.5 Hyperkalemia; E11.65 Type 2 diabetes mellitus with hyperglycemia; G62.9 Polyneuropathy, unspecified; E11.22 Type 2 diabetes mellitus with diabetic chronic kidney disease; M10.9 Gout, unspecified; I12.9 Hypertensive chronic kidney disease with stage 1 through stage 4 chronic kidney disease, or unspecified chronic kidney disease; Z90.49 Acquired absence of other specified parts of digestive tract; Z20.822 Contact with and (suspected) exposure to COVID-19; Z88.8 Allergy status to other drugs, medicaments and biological substances; N18.32 Chronic kidney disease, stage 3b; Z68.30 Body mass index [BMI] 30.0-30.9, adult
CPT/HCPCS: 36415; 70450; 71045; 76705; 80053; 81001; 82140; 82728; 82962; 83540; 83550; 83690; 83735; 84484; 84550; 85025; 85045; 85610; 85730; 86850; 86900; 86901; 86920; 87081; 87426; 93005; 96365; 96375; G0378; J0696; J1815

== ENCOUNTER → 2020-12-19 | Outpatient (CLI) | payer MEDICARE, OTHER ==
[~2020-12-19] MED LIST changes: -FURO1TAB31 PO; +FURO20TA3 PO
[2020-12-19 15:13] LABS: Basophils # (auto) 0.1 10 ^3/uL (0-0.2); Eosinophils # (auto) 0.4 10 ^3/uL (0-0.8)
[2020-12-19 15:15] LABS: Basophils % (auto) 0.7 % (0.0-2.0); Eosinophils % (auto) 4.8 % (0.0-7.0); Hematocrit 22.6 % (36.0-46.0); Hemoglobin 7.6 g/dL (12.2-16.2); Lymphocytes # (auto) 0.7 10 ^3/uL (0.4-5.4); Lymphocytes % (auto) 9.1 % (10.0-50.0); Mean Corpuscular Hgb Conc. 33.7 g/dL (32.0-36.0); Monocytes # (auto) 1.1 10 ^3/uL (0-1.3); Monocytes % (auto) 14.2 % (0.0-12.0); Neutrophils # (auto) 5.5 10 ^3/uL (1.6-8.6); Neutrophils % (auto) 71.2 % (37.0-80.0); Platelet Count (auto) 165 10^3/uL (140-450); Red Blood Cells 2.23 10^6/uL (4.0-5.20); White Blood Cell 7.7 10^3/uL (4.4-10.8)
[2020-12-19 15:21] LABS: Red Cell Distribution Width 20.3 % (11.8-14.3)
[2020-12-19 15:28] LABS: Albumin 2.6 g/dL (3.4-5.0); Calcium 8.6 mg/dL (8.5-10.1); Potassium 4.7 mmol/L (3.5-5.1)
[2020-12-19 15:32] LABS: BUN/Creatinine Ratio 17.4; Total Protein 7.4 g/dL (6.4-8.2)
== END | disposition home or self-care (01) ==
LOC: LAB 13:43
PROVIDERS: ATTEND Internal Medicine Cardiovascular Disease
DX: I10 Essential (primary) hypertension (principal); E72.20 Disorder of urea cycle metabolism, unspecified; D64.9 Anemia, unspecified
CPT/HCPCS: 36415; 80053; 82140; 85025

== ENCOUNTER 2020-12-20 09:45 | Inpatient (IN) | payer MEDICARE, OTHER ==
[~2020-12-20] VITALS: Ht 152.4 cm; Wt 61.5 kg
[2020-12-20 10:35] LABS: Basophils # (auto) 0 10 ^3/uL (0-0.2); Eosinophils # (auto) 0.2 10 ^3/uL (0-0.8); Lymphocytes # (auto) 0.3 10 ^3/uL (0.4-5.4); Monocytes # (auto) 0.9 10 ^3/uL (0-1.3); White Blood Cell 6.9 10^3/uL (4.4-10.8)
[2020-12-20 10:37] LABS: Basophils % (auto) 0.7 % (0.0-2.0); Hemoglobin 7.2 g/dL (12.2-16.2); Lymphocytes % (auto) 4.3 % (10.0-50.0); Mean Corpuscular Hemoglobin 33.1 pg (28.0-32.0); Mean Corpuscular Hgb Conc. 34.1 g/dL (32.0-36.0); Mean Corpuscular Volume 97.2 fL (80.0-100.0); Monocytes % (auto) 12.5 % (0.0-12.0); Neutrophils # (auto) 5.5 10 ^3/uL (1.6-8.6); Neutrophils % (auto) 79.5 % (37.0-80.0); Platelet Count (auto) 152 10^3/uL (140-450); Red Blood Cells 2.16 10^6/uL (4.0-5.20)
[2020-12-20 10:38] LABS: Red Cell Distribution Width 20.1 % (11.8-14.3)
[2020-12-20 10:42] LABS: Urine Bacteria NONE SEEN /hpf (None Seen); Urine Blood Negative /uL (Negative); Urine Hyaline Cast FEW /lpf (0 - 2); Urine Specific Gravity 1.008 (1.001-1.035); Urine WBC 18 /hpf (0 - 5)
[2020-12-20 10:52] LABS: Albumin 2.6 g/dL (3.4-5.0); Anion Gap 9 (5-15); Blood Alcohol < 3.0 mg/dL (0-5); Blood Urea Nitrogen 34 mg/dL (7-18); Carbon Dioxide 21 mmol/L (21-32); Chloride 100 mmol/L (98-107); Glucose 157 mg/dL (74-106); Potassium 4.4 mmol/L (3.5-5.1); Sodium 130 mmol/L (136-145)
[2020-12-20 10:58] LABS: Alanine Aminotransferase 79 U/L (13-56); Alkaline Phosphatase 512 U/L (45-117); Aspartate Aminotransferase 76 U/L (15-37); Bilirubin, Total 1.3 mg/dL (0.2-1.0); GFR African American 29 mL/min; GFR Non-African American 24 mL/min; Total Protein 7.3 g/dL (6.4-8.2)
[2020-12-20 11:18] LABS: INR 1.04 (0.9-1.15); Partial Thromboplastin Time 28.1 sec (23.0-31.2)
[2020-12-20] MEDS ORDERED: cefTRIAXone 1GM/50ML D5W 50 ML IV ONE (11:30)
[2020-12-20] MEDS: LACTULOSE 20Gm/30ML SOLN PO ONE ×2 (13:13→16:05)
[2020-12-20] MEDS ORDERED: MORPHINE SULF INJ 2 MG/ML SYRINGE 1ML IV PRN (16:45)
[2020-12-20] MEDS ORDERED: DEXTROSE (50%) 50ML SYRG IV PRN (16:45)
[2020-12-20] MEDS ORDERED: NITROGLYCERIN 0.4 MG SL TAB SL PRN (16:45)
[2020-12-20] MEDS: InsuLIN REG 1unit/0.01ml Soln (100units/ml) SC SCH ×2 (17:00→21:46)
[2020-12-20] MEDS: ACCU-CHEK COMFORT CURVE STRIP VI SCH ×2 (17:20→21:48)
[2020-12-20] MEDS ORDERED: LACTULOSE 20Gm/30ML SOLN PO SCH (18:00)
[2020-12-20 18:12] VITALS: BP 108/41
[2020-12-20 18:29] VITALS: BP 117/37
[2020-12-20 21:00] VITALS: BP 142/65
[2020-12-20] MEDS ORDERED: EPOETIN ALFA-EPBX 10,000 UNIT/1ML VIAL SC ONE (21:00)
[2020-12-20] MEDS: LACTULOSE 20Gm/30ML SOLN PO SCH (21:45)
[2020-12-20] MEDS: PANTOPRAZOLE 40 MG/10 ML VIAL INJ IV SCH (21:45)
[2020-12-20] MEDS: rifAXIMin 550 MG TAB PO SCH (21:46)
[2020-12-20 22:00] VITALS: BP 142/65
[2020-12-20] MEDS ORDERED: LACTULOSE 20Gm/30ML SOLN PO ONE (22:00)
[2020-12-20 22:15] LABS: Basophils # (auto) 0 10 ^3/uL (0-0.2); Basophils % (auto) 0.5 % (0.0-2.0); Eosinophils # (auto) 0.2 10 ^3/uL (0-0.8); Eosinophils % (auto) 2.3 % (0.0-7.0); Hematocrit 26.2 % (36.0-46.0); Hemoglobin 9.2 g/dL (12.2-16.2); Lymphocytes # (auto) 0.6 10 ^3/uL (0.4-5.4); Lymphocytes % (auto) 8.1 % (10.0-50.0); Mean Corpuscular Hemoglobin 32.6 pg (28.0-32.0); Mean Corpuscular Hgb Conc. 35.1 g/dL (32.0-36.0); Mean Corpuscular Volume 92.9 fL (80.0-100.0); Monocytes % (auto) 13.7 % (0.0-12.0); Neutrophils # (auto) 5.4 10 ^3/uL (1.6-8.6); Neutrophils % (auto) 75.4 % (37.0-80.0); Nucleated Red Blood Cells % 0.1 %; Platelet Count (auto) 127 10^3/uL (140-450); Red Blood Cells 2.82 10^6/uL (4.0-5.20); Red Cell Distribution Width 19.5 % (11.8-14.3); White Blood Cell 7.2 10^3/uL (4.4-10.8)
[2020-12-20 22:50] VITALS: BP 142/65
[2020-12-21 05:00] VITALS: BP 155/66
[2020-12-21 05:01] LABS: Basophils # (auto) 0.1 10 ^3/uL (0-0.2); Eosinophils # (auto) 0.2 10 ^3/uL (0-0.8); Eosinophils % (auto) 2.5 % (0.0-7.0); Hematocrit 26.4 % (36.0-46.0); Hemoglobin 9.1 g/dL (12.2-16.2); Lymphocytes # (auto) 0.4 10 ^3/uL (0.4-5.4); Lymphocytes % (auto) 4.3 % (10.0-50.0); Mean Corpuscular Hemoglobin 32.3 pg (28.0-32.0); Mean Corpuscular Hgb Conc. 34.7 g/dL (32.0-36.0); Mean Corpuscular Volume 93.2 fL (80.0-100.0); Monocytes # (auto) 0.9 10 ^3/uL (0-1.3); Monocytes % (auto) 10.4 % (0.0-12.0); Neutrophils # (auto) 6.7 10 ^3/uL (1.6-8.6); Neutrophils % (auto) 81.8 % (37.0-80.0); Nucleated Red Blood Cells % 0.2 %; Platelet Count (auto) 137 10^3/uL (140-450); Red Blood Cells 2.83 10^6/uL (4.0-5.20); Red Cell Distribution Width 20.1 % (11.8-14.3); White Blood Cell 8.2 10^3/uL (4.4-10.8)
[2020-12-21 05:24] LABS: BUN/Creatinine Ratio 17.6; Potassium 4.2 mmol/L (3.5-5.1)
[2020-12-21] MEDS: LEVOTHYROXINE SODIUM 50 MCG TAB PO SCH (06:00)
[2020-12-21] MEDS: SPIRONOLACTONE 25 MG TAB PO SCH (06:00)
[2020-12-21] MEDS: INSULIN 70/30 1unit/0.01ml Susp (100units/ml) SC SCH ×3 (06:03→17:46)
[2020-12-21] MEDS: InsuLIN REG 1unit/0.01ml Soln (100units/ml) SC SCH ×4 (06:04→21:02)
[2020-12-21] MEDS: ACCU-CHEK COMFORT CURVE STRIP VI SCH ×4 (06:04→21:02)
[2020-12-21] MEDS ORDERED: Sitagliptin Phosphate (Januvia) 100 MG TAB PO SCH (07:00)
[2020-12-21] MEDS ORDERED: FERROUS SULFATE 325mg EC TAB PO SCH (08:00)
[2020-12-21] MEDS ORDERED: SODIUM CHLORIDE LOCK 10 ML ONE (08:18)
[2020-12-21] MEDS ORDERED: MIDAZOLAM HCL 5 MG/ML-1ML VIAL ONE (08:18)
[2020-12-21] MEDS ORDERED: LIDOCAINE VISCOUS 2% 15ML UD ONE (08:18)
[2020-12-21] MEDS ORDERED: fentaNYL CITRATE 100 MCG/2 ML VL ONE (08:19)
[2020-12-21] MEDS ORDERED: diphenhdrAMINE HCL 50 MG/1 ML VL ONE (08:19)
[2020-12-21 08:47] VITALS: BP 126/76
[2020-12-21] MEDS ORDERED: cefTRIAXone 1GM/50ML D5W 50 ML IV SCH (09:00)
[2020-12-21] MEDS ORDERED: PATIENTS OWN MEDICATION (Folic Acid 1 TAB) PO SCH (10:00)
[2020-12-21] MEDS ORDERED: ALLOPURINOL 100 MG TAB PO SCH (10:00)
[2020-12-21] MEDS: FOLIC ACID 1 MG TAB PO SCH (11:12)
[2020-12-21] MEDS: PANTOPRAZOLE 40 MG/10 ML VIAL INJ IV SCH ×2 (11:12→21:00)
[2020-12-21] MEDS: LACTULOSE 20Gm/30ML SOLN PO SCH ×2 (11:13→21:00)
[2020-12-21] MEDS: MULTIPLE VITAMINS W/ MINERALS TAB PO SCH (11:13)
[2020-12-21] MEDS: FUROSEMIDE 20 MG TAB PO SCH (11:13)
[2020-12-21] MEDS: rifAXIMin 550 MG TAB PO SCH ×2 (11:14→21:00)
[2020-12-21] MEDS: CHOLECALCIFEROL (VITD3) 1,000UNIT=25mCg TAB PO SCH (11:16)
[2020-12-21 13:00] VITALS: BP 125/59
[2020-12-21] MEDS ORDERED: NEOMYCIN SULFATE 500 MG TAB PO ONE (14:30)
[2020-12-21 17:00] VITALS: BP 113/59
[2020-12-21 22:00] VITALS: BP 102/57
[2020-12-22] VITALS (7 sets, daily range): BP systolic 106–138; BP diastolic 52–64
[2020-12-22 05:14] LABS: Hemoglobin 7.9 g/dL (12.2-16.2); Lymphocytes # (auto) 0.5 10 ^3/uL (0.4-5.4); Nucleated Red Blood Cells % 0.1 %; White Blood Cell 9.8 10^3/uL (4.4-10.8)
[2020-12-22 05:16] LABS: Basophils # (auto) 0 10 ^3/uL (0-0.2); Basophils % (auto) 0.4 % (0.0-2.0); Eosinophils # (auto) 0.2 10 ^3/uL (0-0.8); Eosinophils % (auto) 2.4 % (0.0-7.0); Hematocrit 22.6 % (36.0-46.0); Lymphocytes % (auto) 5.5 % (10.0-50.0); Mean Corpuscular Hemoglobin 32.5 pg (28.0-32.0); Mean Corpuscular Volume 93.1 fL (80.0-100.0); Monocytes # (auto) 0.9 10 ^3/uL (0-1.3); Monocytes % (auto) 8.9 % (0.0-12.0); Neutrophils # (auto) 8.1 10 ^3/uL (1.6-8.6); Neutrophils % (auto) 82.8 % (37.0-80.0); Platelet Count (auto) 105 10^3/uL (140-450); Red Blood Cells 2.42 10^6/uL (4.0-5.20); Red Cell Distribution Width 19.4 % (11.8-14.3)
[2020-12-22] MEDS: LEVOTHYROXINE SODIUM 50 MCG TAB PO SCH (06:34)
[2020-12-22] MEDS: SPIRONOLACTONE 25 MG TAB PO SCH (06:34)
[2020-12-22] MEDS: ACCU-CHEK COMFORT CURVE STRIP VI SCH ×4 (06:43→21:48)
[2020-12-22] MEDS: InsuLIN REG 1unit/0.01ml Soln (100units/ml) SC SCH ×4 (06:43→21:48)
[2020-12-22] MEDS: INSULIN 70/30 1unit/0.01ml Susp (100units/ml) SC SCH ×3 (07:30→18:36)
[2020-12-22] MEDS ORDERED: ERTAPENEM SOD INJ 1 GM in SODIUM CHL 0.9% 50 ML IV ONE (10:00)
[2020-12-22] MEDS ORDERED: LACTULOSE 20Gm/30ML SOLN PO PRN (10:00)
[2020-12-22] MEDS: CHOLECALCIFEROL (VITD3) 1,000UNIT=25mCg TAB PO SCH (10:50)
[2020-12-22] MEDS: MULTIPLE VITAMINS W/ MINERALS TAB PO SCH (10:50)
[2020-12-22] MEDS: PANTOPRAZOLE 40 MG/10 ML VIAL INJ IV SCH ×2 (10:50→21:47)
[2020-12-22] MEDS: rifAXIMin 550 MG TAB PO SCH ×2 (10:50→21:48)
[2020-12-22] MEDS: FUROSEMIDE 20 MG TAB PO SCH (10:51)
[2020-12-22] MEDS: FOLIC ACID 1 MG TAB PO SCH (10:51)
[2020-12-22] MEDS: ALLOPURINOL 100 MG TAB PO SCH (10:51)
[2020-12-22] MEDS: SUCRALFATE 1 GM/10 ML ORAL SUSP PO SCH ×3 (11:04→21:48)
[2020-12-22] MEDS: LACTULOSE 20Gm/30ML SOLN PO SCH (21:47)
[2020-12-23 05:00] VITALS: BP 112/63
[2020-12-23 05:30] LABS: Basophils # (auto) 0 10 ^3/uL (0-0.2); Basophils % (auto) 0.4 % (0.0-2.0); Eosinophils # (auto) 0.3 10 ^3/uL (0-0.8); Eosinophils % (auto) 4.2 % (0.0-7.0); Hematocrit 28.6 % (36.0-46.0); Hemoglobin 9.9 g/dL (12.2-16.2); Lymphocytes # (auto) 0.4 10 ^3/uL (0.4-5.4); Lymphocytes % (auto) 5.6 % (10.0-50.0); Mean Corpuscular Hemoglobin 31.9 pg (28.0-32.0); Mean Corpuscular Hgb Conc. 34.6 g/dL (32.0-36.0); Mean Corpuscular Volume 92.1 fL (80.0-100.0); Monocytes # (auto) 0.9 10 ^3/uL (0-1.3); Monocytes % (auto) 11.3 % (0.0-12.0); Neutrophils % (auto) 78.5 % (37.0-80.0); Nucleated Red Blood Cells % 0.1 %; Platelet Count (auto) 103 10^3/uL (140-450); Red Blood Cells 3.11 10^6/uL (4.0-5.20); Red Cell Distribution Width 20.5 % (11.8-14.3); White Blood Cell 7.6 10^3/uL (4.4-10.8)
[2020-12-23 05:44] LABS: Calcium 8.3 mg/dL (8.5-10.1)
[2020-12-23 05:48] LABS: BUN/Creatinine Ratio 18.1
[2020-12-23] MEDS: LEVOTHYROXINE SODIUM 50 MCG TAB PO SCH (06:28)
[2020-12-23] MEDS: SUCRALFATE 1 GM/10 ML ORAL SUSP PO SCH ×4 (06:28→21:15)
[2020-12-23] MEDS: SPIRONOLACTONE 25 MG TAB PO SCH (06:28)
[2020-12-23] MEDS: ACCU-CHEK COMFORT CURVE STRIP VI SCH ×4 (06:29→21:39)
[2020-12-23] MEDS: INSULIN 70/30 1unit/0.01ml Susp (100units/ml) SC SCH ×3 (06:30→17:31)
[2020-12-23] MEDS: InsuLIN REG 1unit/0.01ml Soln (100units/ml) SC SCH ×4 (06:30→21:39)
[2020-12-23 08:47] VITALS: BP 120/67
[2020-12-23] MEDS: LACTULOSE 20Gm/30ML SOLN PO SCH ×2 (09:58→21:38)
[2020-12-23] MEDS: PANTOPRAZOLE 40 MG/10 ML VIAL INJ IV SCH ×2 (09:58→21:15)
[2020-12-23] MEDS: MULTIPLE VITAMINS W/ MINERALS TAB PO SCH (09:59)
[2020-12-23] MEDS: rifAXIMin 550 MG TAB PO SCH ×2 (09:59→21:15)
[2020-12-23] MEDS: ALLOPURINOL 100 MG TAB PO SCH (09:59)
[2020-12-23] MEDS: FUROSEMIDE 20 MG TAB PO SCH (09:59)
[2020-12-23] MEDS: CHOLECALCIFEROL (VITD3) 1,000UNIT=25mCg TAB PO SCH (10:00)
[2020-12-23] MEDS: FOLIC ACID 1 MG TAB PO SCH (10:00)
[2020-12-23] MEDS: ERTAPENEM SOD INJ 0.5 GM in SODIUM CHL 0.9% 50 ML IV SCH (10:09)
[2020-12-23 13:00] VITALS: BP 119/69
[2020-12-23 17:00] VITALS: BP 111/64
[2020-12-23 22:00] VITALS: BP 127/61
[2020-12-24 05:02] VITALS: BP 113/59
[2020-12-24] MEDS: LEVOTHYROXINE SODIUM 50 MCG TAB PO SCH (05:59)
[2020-12-24] MEDS: SPIRONOLACTONE 25 MG TAB PO SCH (06:24)
[2020-12-24] MEDS: SUCRALFATE 1 GM/10 ML ORAL SUSP PO SCH ×4 (06:25→21:08)
[2020-12-24] MEDS: ACCU-CHEK COMFORT CURVE STRIP VI SCH ×4 (06:26→21:02)
[2020-12-24] MEDS: InsuLIN REG 1unit/0.01ml Soln (100units/ml) SC SCH ×3 (06:28→17:00)
[2020-12-24] MEDS: INSULIN 70/30 1unit/0.01ml Susp (100units/ml) SC SCH ×3 (06:28→18:24)
[2020-12-24 07:03] LABS: Basophils # (auto) 0.1 10 ^3/uL (0-0.2); Basophils % (auto) 0.8 % (0.0-2.0); Eosinophils # (auto) 0.4 10 ^3/uL (0-0.8); Hematocrit 28.2 % (36.0-46.0); Hemoglobin 9.9 g/dL (12.2-16.2); Lymphocytes # (auto) 0.5 10 ^3/uL (0.4-5.4); Lymphocytes % (auto) 7.3 % (10.0-50.0); Mean Corpuscular Hemoglobin 32.2 pg (28.0-32.0); Monocytes # (auto) 0.8 10 ^3/uL (0-1.3); Monocytes % (auto) 11.7 % (0.0-12.0); Neutrophils # (auto) 5.3 10 ^3/uL (1.6-8.6); Neutrophils % (auto) 75.2 % (37.0-80.0); Nucleated Red Blood Cells % 0.3 %; Platelet Count (auto) 103 10^3/uL (140-450); Red Blood Cells 3.07 10^6/uL (4.0-5.20); Red Cell Distribution Width 20.5 % (11.8-14.3)
[2020-12-24 07:17] LABS: INR 1.04 (0.9-1.15); Partial Thromboplastin Time 29.6 sec (23.0-31.2)
[2020-12-24 09:00] VITALS: BP 117/62
[2020-12-24] MEDS: ERTAPENEM SOD INJ 0.5 GM in SODIUM CHL 0.9% 50 ML IV SCH (10:58)
[2020-12-24] MEDS: rifAXIMin 550 MG TAB PO SCH ×2 (10:59→21:08)
[2020-12-24] MEDS: LACTULOSE 20Gm/30ML SOLN PO SCH ×2 (10:59→21:08)
[2020-12-24] MEDS: PANTOPRAZOLE 40 MG/10 ML VIAL INJ IV SCH ×2 (10:59→21:08)
[2020-12-24] MEDS: MULTIPLE VITAMINS W/ MINERALS TAB PO SCH (10:59)
[2020-12-24] MEDS: FOLIC ACID 1 MG TAB PO SCH (10:59)
[2020-12-24] MEDS: CHOLECALCIFEROL (VITD3) 1,000UNIT=25mCg TAB PO SCH (10:59)
[2020-12-24] MEDS: ALLOPURINOL 100 MG TAB PO SCH (11:00)
[2020-12-24] MEDS: FUROSEMIDE 20 MG TAB PO SCH (11:00)
[2020-12-24 13:00] VITALS: BP 117/60
[2020-12-24 17:00] VITALS: BP 119/58
[2020-12-24 22:00] VITALS: BP 113/62
[2020-12-25 05:00] VITALS: BP 113/61
[2020-12-25 05:17] LABS: Basophils # (auto) 0 10 ^3/uL (0-0.2); Basophils % (auto) 0.8 % (0.0-2.0); Eosinophils # (auto) 0.4 10 ^3/uL (0-0.8); Eosinophils % (auto) 6.1 % (0.0-7.0); Hematocrit 28.2 % (36.0-46.0); Hemoglobin 9.6 g/dL (12.2-16.2); Lymphocytes # (auto) 0.5 10 ^3/uL (0.4-5.4); Lymphocytes % (auto) 7.6 % (10.0-50.0); Mean Corpuscular Hemoglobin 31.7 pg (28.0-32.0); Mean Corpuscular Hgb Conc. 34.1 g/dL (32.0-36.0); Mean Corpuscular Volume 93.1 fL (80.0-100.0); Monocytes # (auto) 0.8 10 ^3/uL (0-1.3); Monocytes % (auto) 12.7 % (0.0-12.0); Neutrophils # (auto) 4.3 10 ^3/uL (1.6-8.6); Neutrophils % (auto) 72.8 % (37.0-80.0); Nucleated Red Blood Cells % 0.1 %; Platelet Count (auto) 107 10^3/uL (140-450); Red Blood Cells 3.03 10^6/uL (4.0-5.20); White Blood Cell 5.9 10^3/uL (4.4-10.8)
[2020-12-25] MEDS: SPIRONOLACTONE 25 MG TAB PO SCH (05:25)
[2020-12-25] MEDS: LEVOTHYROXINE SODIUM 50 MCG TAB PO SCH (05:25)
[2020-12-25] MEDS: SUCRALFATE 1 GM/10 ML ORAL SUSP PO SCH ×2 (05:25→12:00)
[2020-12-25 05:31] LABS: Red Cell Distribution Width 20.8 % (11.8-14.3)
[2020-12-25 05:34] LABS: Albumin 2.2 g/dL (3.4-5.0); Potassium 4.5 mmol/L (3.5-5.1)
[2020-12-25 05:39] LABS: BUN/Creatinine Ratio 19.4; Bilirubin, Total 1.3 mg/dL (0.2-1.0); Total Protein 6.2 g/dL (6.4-8.2)
[2020-12-25] MEDS: ACCU-CHEK COMFORT CURVE STRIP VI SCH ×2 (05:52→12:00)
[2020-12-25] MEDS: INSULIN 70/30 1unit/0.01ml Susp (100units/ml) SC SCH ×2 (05:52→12:01)
[2020-12-25] MEDS: LACTULOSE 20Gm/30ML SOLN PO SCH (10:37)
[2020-12-25] MEDS: rifAXIMin 550 MG TAB PO SCH (10:38)
[2020-12-25] MEDS: MULTIPLE VITAMINS W/ MINERALS TAB PO SCH (10:38)
[2020-12-25] MEDS: PANTOPRAZOLE 40 MG/10 ML VIAL INJ IV SCH (10:38)
[2020-12-25] MEDS: ALLOPURINOL 100 MG TAB PO SCH (10:39)
[2020-12-25] MEDS: FOLIC ACID 1 MG TAB PO SCH (10:39)
[2020-12-25] MEDS: CHOLECALCIFEROL (VITD3) 1,000UNIT=25mCg TAB PO SCH (10:39)
[2020-12-25] MEDS: FUROSEMIDE 20 MG TAB PO SCH (10:43)
[2020-12-25] MEDS: ERTAPENEM SOD INJ 0.5 GM in SODIUM CHL 0.9% 50 ML IV SCH (10:56)
[2020-12-25 11:16] VITALS: BP 116/60
== END 2020-12-25 13:27 | disposition home or self-care (01) | DRG 871 ==
LOC: ER 09:45 → EDBD 09:45 → TELE 16:37 → TELE-CENTR 20:40
PROVIDERS: ADMIT Internal Medicine Cardiovascular Disease; ATTEND Internal Medicine
PROC: 30233N1 Transfusion of Nonautologous Red Blood Cells into Peripheral Vein, Percutaneous Approach (ICD-10-PCS; 2020-12-20)
PROC: 0W9G3ZZ Drainage of Peritoneal Cavity, Percutaneous Approach (ICD-10-PCS; 2020-12-20)
PROC: 0W3P8ZZ Control Bleeding in Gastrointestinal Tract, Via Natural or Artificial Opening Endoscopic (ICD-10-PCS; principal; 2020-12-21 10:05)
DX: A41.9 Sepsis, unspecified organism (principal); K31.811 Angiodysplasia of stomach and duodenum with bleeding; E87.1 Hypo-osmolality and hyponatremia; K76.6 Portal hypertension; R18.8 Other ascites; Z16.12 Extended spectrum beta lactamase (ESBL) resistance; N39.0 Urinary tract infection, site not specified; D63.8 Anemia in other chronic diseases classified elsewhere; K72.90 Hepatic failure, unspecified without coma; E11.22 Type 2 diabetes mellitus with diabetic chronic kidney disease; K74.60 Unspecified cirrhosis of liver; N18.30 Chronic kidney disease, stage 3 unspecified; Z20.822 Contact with and (suspected) exposure to COVID-19; B96.20 Unspecified Escherichia coli [E. coli] as the cause of diseases classified elsewhere; E03.9 Hypothyroidism, unspecified; E61.1 Iron deficiency; E11.42 Type 2 diabetes mellitus with diabetic polyneuropathy; E78.00 Pure hypercholesterolemia, unspecified; K76.0 Fatty (change of) liver, not elsewhere classified; I12.9 Hypertensive chronic kidney disease with stage 1 through stage 4 chronic kidney disease, or unspecified chronic kidney disease; M10.9 Gout, unspecified; Z79.4 Long term (current) use of insulin; Z82.49 Family history of ischemic heart disease and other diseases of the circulatory system; Z88.8 Allergy status to other drugs, medicaments and biological substances; Z90.49 Acquired absence of other specified parts of digestive tract; D64.9 Anemia, unspecified
CPT/HCPCS: 36415; 36430; 43255; 49083; 70450; 71045; 76705; 76775; 76942; 80048; 80053; 80320; 81001; 82140; 82565; 82962; 84484; 84520; 84550; 85025; 85045; 85610; 85730; 86850; 86900; 86901; 86920; 87081; 87086; 87088; 87186; 87426; 93005; 96365; 97110; 97116; 97530; C9113; G0378; J0696; J1335; J1815; J2250

== ENCOUNTER → 2020-12-31 | Outpatient (CLI) | payer MEDICARE, OTHER ==
[2020-12-31 10:38] LABS: Basophils # (auto) 0 10 ^3/uL (0-0.2); Basophils % (auto) 0.8 % (0.0-2.0); Eosinophils # (auto) 0.2 10 ^3/uL (0-0.8); Eosinophils % (auto) 4.9 % (0.0-7.0); Hematocrit 30.7 % (36.0-46.0); Hemoglobin 10.5 g/dL (12.2-16.2); Lymphocytes # (auto) 0.6 10 ^3/uL (0.4-5.4); Lymphocytes % (auto) 13.1 % (10.0-50.0); Mean Corpuscular Hemoglobin 31.7 pg (28.0-32.0); Mean Corpuscular Hgb Conc. 34.3 g/dL (32.0-36.0); Mean Corpuscular Volume 92.2 fL (80.0-100.0); Monocytes # (auto) 0.6 10 ^3/uL (0-1.3); Monocytes % (auto) 13.5 % (0.0-12.0); Neutrophils # (auto) 3.1 10 ^3/uL (1.6-8.6); Neutrophils % (auto) 67.7 % (37.0-80.0); Platelet Count (auto) 91 10^3/uL (140-450); Red Blood Cells 3.33 10^6/uL (4.0-5.20); Red Cell Distribution Width 21.7 % (11.8-14.3); White Blood Cell 4.7 10^3/uL (4.4-10.8)
[2020-12-31 11:01] LABS: BUN/Creatinine Ratio 13.6; Calcium 8.3 mg/dL (8.5-10.1); Potassium 3.9 mmol/L (3.5-5.1)
[2020-12-31 14:06] LABS: Urine Bacteria NONE SEEN /hpf (None Seen); Urine Blood Negative /uL (Negative); Urine Specific Gravity 1.006 (1.001-1.035); Urine WBC 1 /hpf (0 - 5)
[2020-12-31 14:16] LABS: Creatinine, Urine 56 mg/dL (30.0-125.0)
[2020-12-31 14:27] LABS: Micro Albumin < 5.00 mg/L (0-30.0)
== END | disposition home or self-care (01) ==
LOC: LAB 10:14
PROVIDERS: ATTEND Internal Medicine Endocrinology, Diabetes & Metabolism
DX: E11.65 Type 2 diabetes mellitus with hyperglycemia (principal); D64.9 Anemia, unspecified; Z79.899 Other long term (current) drug therapy
CPT/HCPCS: 36415; 80048; 81001; 82043; 82570; 83036; 85025; 85049; 87086

== ENCOUNTER → 2021-01-09 | Outpatient (CLI) | payer MEDICARE, OTHER ==
[2021-01-09 11:55] LABS: Basophils # (auto) 0 10 ^3/uL (0-0.2); Basophils % (auto) 0.6 % (0.0-2.0); Eosinophils # (auto) 0.2 10 ^3/uL (0-0.8); Eosinophils % (auto) 4.4 % (0.0-7.0); Hematocrit 28.8 % (36.0-46.0); Hemoglobin 9.8 g/dL (12.2-16.2); Lymphocytes # (auto) 0.6 10 ^3/uL (0.4-5.4); Lymphocytes % (auto) 13.5 % (10.0-50.0); Mean Corpuscular Hemoglobin 32.5 pg (28.0-32.0); Mean Corpuscular Hgb Conc. 34.1 g/dL (32.0-36.0); Mean Corpuscular Volume 95.4 fL (80.0-100.0); Monocytes # (auto) 0.6 10 ^3/uL (0-1.3); Monocytes % (auto) 13.8 % (0.0-12.0); Neutrophils # (auto) 2.8 10 ^3/uL (1.6-8.6); Neutrophils % (auto) 67.7 % (37.0-80.0); Nucleated Red Blood Cells % 0.1 %; Platelet Count (auto) 76 10^3/uL (140-450); Red Blood Cells 3.02 10^6/uL (4.0-5.20); White Blood Cell 4.2 10^3/uL (4.4-10.8)
[2021-01-09 12:02] LABS: Red Cell Distribution Width 23.5 % (11.8-14.3)
[2021-01-09 12:04] LABS: Potassium 4.4 mmol/L (3.5-5.1)
[2021-01-09 12:08] LABS: BUN/Creatinine Ratio 13.7
== END | disposition home or self-care (01) ==
LOC: CHF HDHVI 10:14
PROVIDERS: ATTEND Internal Medicine Cardiovascular Disease
DX: I10 Essential (primary) hypertension (principal); E72.20 Disorder of urea cycle metabolism, unspecified; E03.9 Hypothyroidism, unspecified; D64.9 Anemia, unspecified
CPT/HCPCS: 36415; 80048; 82140; 84443; 85025; 85049

== ENCOUNTER → 2021-02-04 | Outpatient (CLI) | payer MEDICARE, OTHER ==
[2021-02-04 11:46] LABS: Basophils # (auto) 0.1 10 ^3/uL (0-0.2); Basophils % (auto) 1.1 % (0.0-2.0); Eosinophils # (auto) 0.2 10 ^3/uL (0-0.8); Eosinophils % (auto) 3.7 % (0.0-7.0); Hematocrit 28.2 % (36.0-46.0); Hemoglobin 9.5 g/dL (12.2-16.2); Lymphocytes # (auto) 0.6 10 ^3/uL (0.4-5.4); Lymphocytes % (auto) 11.2 % (10.0-50.0); Mean Corpuscular Hemoglobin 33.7 pg (28.0-32.0); Mean Corpuscular Hgb Conc. 33.8 g/dL (32.0-36.0); Mean Corpuscular Volume 99.6 fL (80.0-100.0); Monocytes # (auto) 0.8 10 ^3/uL (0-1.3); Monocytes % (auto) 15.8 % (0.0-12.0); Neutrophils # (auto) 3.5 10 ^3/uL (1.6-8.6); Neutrophils % (auto) 68.2 % (37.0-80.0); Nucleated Red Blood Cells % 0.1 %; Red Blood Cells 2.83 10^6/uL (4.0-5.20); White Blood Cell 5.2 10^3/uL (4.4-10.8)
[2021-02-04 11:51] LABS: Potassium 4.2 mmol/L (3.5-5.1)
[2021-02-04 11:59] LABS: Albumin 2.5 g/dL (3.4-5.0); Calcium 8.7 mg/dL (8.5-10.1); Total Protein 7.5 g/dL (6.4-8.2); Uric Acid 6.7 mg/dL (2.6-6.0)
[2021-02-04 12:00] LABS: Red Cell Distribution Width 21.6 % (11.8-14.3)
== END | disposition home or self-care (01) ==
LOC: LAB 10:01
PROVIDERS: ATTEND Internal Medicine Cardiovascular Disease
DX: K74.60 Unspecified cirrhosis of liver (principal); D64.9 Anemia, unspecified
CPT/HCPCS: 36415; 80053; 84550; 85025; 85610

== ENCOUNTER 2021-03-22 07:28 | Day surgery (SDC) | payer MEDICARE ==
[2021-03-22] VITALS (8 sets, daily range): BP systolic 115–139; BP diastolic 55–65
== END 2021-03-22 11:55 | disposition home or self-care (01) ==
LOC: CATH 07:28
PROVIDERS: ATTEND Internal Medicine Cardiovascular Disease
DX: D64.9 Anemia, unspecified (principal); Z20.822 Contact with and (suspected) exposure to COVID-19; Z88.8 Allergy status to other drugs, medicaments and biological substances; Z98.890 Other specified postprocedural states; Z79.899 Other long term (current) drug therapy
CPT/HCPCS: 36430; 86850; 86900; 86901; 86920; J7040; P9016; U0003

== ENCOUNTER → 2021-04-10 | Outpatient (CLI) | payer MEDICARE ==
[2021-04-10 15:21] LABS: Basophils # (auto) 0 10 ^3/uL (0-0.2); Basophils % (auto) 0.7 % (0.0-2.0); Eosinophils # (auto) 0.1 10 ^3/uL (0-0.8); Eosinophils % (auto) 2.2 % (0.0-7.0); Hematocrit 29.7 % (36.0-46.0); Hemoglobin 9.9 g/dL (12.2-16.2); Lymphocytes # (auto) 0.4 10 ^3/uL (0.4-5.4); Lymphocytes % (auto) 8.2 % (10.0-50.0); Mean Corpuscular Hemoglobin 32.6 pg (28.0-32.0); Mean Corpuscular Hgb Conc. 33.4 g/dL (32.0-36.0); Mean Corpuscular Volume 97.7 fL (80.0-100.0); Monocytes # (auto) 0.8 10 ^3/uL (0-1.3); Monocytes % (auto) 15.1 % (0.0-12.0); Neutrophils # (auto) 3.9 10 ^3/uL (1.6-8.6); Neutrophils % (auto) 73.8 % (37.0-80.0); Nucleated Red Blood Cells % 0.1 %; Red Blood Cells 3.04 10^6/uL (4.0-5.20); White Blood Cell 5.4 10^3/uL (4.4-10.8)
== END | disposition home or self-care (01) ==
LOC: LAB 11:06
PROVIDERS: ATTEND Internal Medicine Cardiovascular Disease
DX: D64.9 Anemia, unspecified (principal)
CPT/HCPCS: 36415; 85025

== ENCOUNTER → 2021-06-03 | Outpatient (CLI) | payer MEDICARE, MEDICAID, OTHER ==
[2021-06-03 15:29] LABS: Urine Blood Negative /uL (Negative); Urine Specific Gravity 1.011 (1.001-1.035)
== END | disposition home or self-care (01) ==
LOC: LAB 13:23
PROVIDERS: ATTEND Internal Medicine Cardiovascular Disease
DX: N39.0 Urinary tract infection, site not specified (principal)
CPT/HCPCS: 81003; 87086

== ENCOUNTER → 2021-06-06 | Outpatient (CLI) | payer MEDICARE, OTHER, MEDICAID ==
[2021-06-06 16:10] LABS: Basophils # (auto) 0 10 ^3/uL (0-0.2); Basophils % (auto) 0.5 % (0.0-2.0); Eosinophils # (auto) 0.1 10 ^3/uL (0-0.8); Eosinophils % (auto) 2.4 % (0.0-7.0); Hematocrit 29.4 % (36.0-46.0); Hemoglobin 9.6 g/dL (12.2-16.2); Lymphocytes # (auto) 0.6 10 ^3/uL (0.4-5.4); Mean Corpuscular Hemoglobin 30.1 pg (28.0-32.0); Mean Corpuscular Hgb Conc. 32.5 g/dL (32.0-36.0); Mean Corpuscular Volume 92.7 fL (80.0-100.0); Monocytes # (auto) 0.7 10 ^3/uL (0-1.3); Monocytes % (auto) 15.2 % (0.0-12.0); Neutrophils # (auto) 3.4 10 ^3/uL (1.6-8.6); Neutrophils % (auto) 68.9 % (37.0-80.0); Red Blood Cells 3.17 10^6/uL (4.0-5.20); Red Cell Distribution Width 19.3 % (11.8-14.3); White Blood Cell 4.9 10^3/uL (4.4-10.8)
[2021-06-06 17:18] LABS: Calcium 8.6 mg/dL (8.5-10.1); Potassium 4.6 mmol/L (3.5-5.1)
[2021-06-06 17:21] LABS: BUN/Creatinine Ratio 18.6
== END | disposition home or self-care (01) ==
LOC: LAB 15:47
PROVIDERS: ATTEND Internal Medicine Cardiovascular Disease
DX: D64.9 Anemia, unspecified (principal)
CPT/HCPCS: 36415; 80048; 85025

== ENCOUNTER → 2021-07-08 | Outpatient (CLI) | payer MEDICARE, OTHER ==
[2021-07-08 15:11] LABS: Monocytes # (auto) 0.5 10 ^3/uL (0-1.3); Neutrophils # (auto) 1.5 10 ^3/uL (1.6-8.6); White Blood Cell 2.6 10^3/uL (4.4-10.8)
[2021-07-08 15:13] LABS: Basophils # (auto) 0 10 ^3/uL (0-0.2); Eosinophils # (auto) 0.1 10 ^3/uL (0-0.8); Eosinophils % (auto) 2.5 % (0.0-7.0); Hematocrit 27.2 % (36.0-46.0); Hemoglobin 9.3 g/dL (12.2-16.2); Lymphocytes # (auto) 0.6 10 ^3/uL (0.4-5.4); Lymphocytes % (auto) 21.6 % (10.0-50.0); Mean Corpuscular Hemoglobin 29.8 pg (28.0-32.0); Mean Corpuscular Hgb Conc. 34.2 g/dL (32.0-36.0); Mean Corpuscular Volume 87.3 fL (80.0-100.0); Monocytes % (auto) 18.3 % (0.0-12.0); Neutrophils % (auto) 56.6 % (37.0-80.0); Nucleated Red Blood Cells % 0.2 %; Red Blood Cells 3.12 10^6/uL (4.0-5.20); Red Cell Distribution Width 18.8 % (11.8-14.3)
[2021-07-08 15:54] LABS: Albumin 2.9 g/dL (3.4-5.0); Bilirubin, Direct 0.6 mg/dL (0-0.2); Calcium 8.5 mg/dL (8.5-10.1); Potassium 4.1 mmol/L (3.5-5.1); Uric Acid 6.9 mg/dL (2.6-6.0)
[2021-07-08 15:57] LABS: BUN/Creatinine Ratio 14.4; Total Protein 7.7 g/dL (6.4-8.2)
== END | disposition home or self-care (01) ==
LOC: LAB 14:59
PROVIDERS: ATTEND Internal Medicine Gastroenterology
DX: K74.60 Unspecified cirrhosis of liver (principal)
CPT/HCPCS: 36415; 80048; 80076; 84550; 85025

== ENCOUNTER → 2021-07-12 | Outpatient (CLI) | payer MEDICARE, OTHER ==
[~2021-07-12] VITALS: Ht 152.4 cm; Wt 54.4 kg
[~2021-07-12] MED LIST changes: +SODIUM CHL 0.9% IV ONE; +[UNRECOGNIZED DRUG - OTHER] IV ONE; +[UNRECOGNIZED DRUG - OTHER] IV ONE
[2021-07-12 12:30] VITALS: BP 123/55
[2021-07-12 13:55] VITALS: BP 137/64
[2021-07-12 14:10] VITALS: BP 136/63
[2021-07-12 14:40] VITALS: BP 141/60
[2021-07-12 15:10] VITALS: BP 133/59
[2021-07-12 15:20] VITALS: BP 133/59
== END | disposition home or self-care (01) ==
LOC: ER 10:53
PROVIDERS: ATTEND Internal Medicine
DX: U07.1 COVID-19 (principal)
CPT/HCPCS: M0247; Q0247

== ENCOUNTER 2021-09-01 14:46 | Emergency (ER) | payer MEDICARE, OTHER ==
[~2021-09-01] VITALS: Ht 152.4 cm; Wt 59.0 kg
[~2021-09-01 14:46] MED LIST changes: -SODIUM CHL 0.9% IV ONE; -[UNRECOGNIZED DRUG - OTHER] IV ONE; -[UNRECOGNIZED DRUG - OTHER] IV ONE
[2021-09-01] MEDS ORDERED: SODIUM CHLORIDE 0.9% 1,000 ML IV ONE (15:30)
[2021-09-01 16:14] LABS: Basophils # (auto) 0 10 ^3/uL (0-0.2); Basophils % (auto) 0.7 % (0.0-2.0); Eosinophils # (auto) 0 10 ^3/uL (0-0.8); Eosinophils % (auto) 0.9 % (0.0-7.0); Hematocrit 29.5 % (36.0-46.0); Hemoglobin 9.7 g/dL (12.2-16.2); Lymphocytes # (auto) 0.3 10 ^3/uL (0.4-5.4); Lymphocytes % (auto) 7.1 % (10.0-50.0); Mean Corpuscular Hemoglobin 29.5 pg (28.0-32.0); Mean Corpuscular Hgb Conc. 32.8 g/dL (32.0-36.0); Mean Corpuscular Volume 90.2 fL (80.0-100.0); Monocytes # (auto) 0.7 10 ^3/uL (0-1.3); Monocytes % (auto) 13.6 % (0.0-12.0); Neutrophils # (auto) 3.8 10 ^3/uL (1.6-8.6); Neutrophils % (auto) 77.7 % (37.0-80.0); Nucleated Red Blood Cells % 0.2 %; Red Blood Cells 3.27 10^6/uL (4.0-5.20); Red Cell Distribution Width 20.5 % (11.8-14.3); White Blood Cell 4.9 10^3/uL (4.4-10.8)
[2021-09-01 16:18] LABS: Albumin 2.9 g/dL (3.4-5.0); BUN/Creatinine Ratio 15.8; Calcium 9.6 mg/dL (8.5-10.1); INR 1.06 (0.9-1.15); Magnesium 2.3 mg/dL (1.6-2.6); Partial Thromboplastin Time 27.6 sec (23.6-33.0); Potassium 4.6 mmol/L (3.5-5.1)
[2021-09-01 16:20] LABS: Urine Bacteria FEW /hpf (None Seen); Urine Blood Negative /uL (Negative); Urine Specific Gravity 1.009 (1.001-1.035); Urine WBC 4 /hpf (0 - 5)
[2021-09-01 16:20] LABS: Bilirubin, Total 1.4 mg/dL (0.2-1.0)
[2021-09-01 16:24] LABS: Lactic Acid w/Reflex 3.1 mmol/L (0.4-2.0)
[2021-09-01 16:35] LABS: Alcohol, Urine < 3.0 mg/dL (0-10); Amphetamine Screen, Urine NEGATIVE (NEGATIVE); Barbiturate Scree,Urine NEGATIVE (NEGATIVE); Benzodiazephine Screen, Urine NEGATIVE (NEGATIVE); Cannabinoid Screen, Urine NEGATIVE (NEGATIVE); Cocaine Screen, Urine NEGATIVE (NEGATIVE); Opiate Scree,Urine NEGATIVE (NEGATIVE); Phencyclidine Screen, Urine NEGATIVE (NEGATIVE)
[2021-09-01] MEDS ORDERED: cefTRIAXone 1GM/50ML D5W 50 ML IV ONE (17:15)
[2021-09-01 18:00] VITALS: BP 124/58
== END 2021-09-01 19:09 | disposition home or self-care (01) ==
LOC: EDBD 14:46 → ER 14:46
DX: R41.82 Altered mental status, unspecified (principal); E11.65 Type 2 diabetes mellitus with hyperglycemia; R74.01 Elevation of levels of liver transaminase levels; E46 Unspecified protein-calorie malnutrition; N39.0 Urinary tract infection, site not specified; D64.9 Anemia, unspecified; K74.60 Unspecified cirrhosis of liver; E13.21 Other specified diabetes mellitus with diabetic nephropathy; E72.20 Disorder of urea cycle metabolism, unspecified; E78.5 Hyperlipidemia, unspecified; Z90.49 Acquired absence of other specified parts of digestive tract; Z79.899 Other long term (current) drug therapy
CPT/HCPCS: 36415; 70450; 71045; 80053; 80307; 81001; 82140; 83605; 83735; 84443; 84484; 85025; 85610; 85730; 87040; 87086; 93005; 96361; 96365; 99285; J0696; J7030

== ENCOUNTER → 2021-09-09 | Outpatient (CLI) | payer MEDICARE, OTHER ==
[2021-09-09 15:06] LABS: Urine Blood Negative /uL (Negative); Urine Specific Gravity 1.008 (1.001-1.035)
[2021-09-09 15:09] LABS: Basophils # (auto) 0.1 10 ^3/uL (0-0.2); Basophils % (auto) 1.1 % (0.0-2.0); Eosinophils # (auto) 0.1 10 ^3/uL (0-0.8); Eosinophils % (auto) 2.4 % (0.0-7.0); Hematocrit 28.7 % (36.0-46.0); Hemoglobin 9.5 g/dL (12.2-16.2); Lymphocytes # (auto) 0.6 10 ^3/uL (0.4-5.4); Lymphocytes % (auto) 13.1 % (10.0-50.0); Mean Corpuscular Hemoglobin 28.9 pg (28.0-32.0); Mean Corpuscular Volume 87.5 fL (80.0-100.0); Monocytes # (auto) 0.5 10 ^3/uL (0-1.3); Monocytes % (auto) 11.7 % (0.0-12.0); Neutrophils # (auto) 3.4 10 ^3/uL (1.6-8.6); Neutrophils % (auto) 71.7 % (37.0-80.0); Nucleated Red Blood Cells % 0.1 %; Red Blood Cells 3.28 10^6/uL (4.0-5.20); Red Cell Distribution Width 19.8 % (11.8-14.3); White Blood Cell 4.7 10^3/uL (4.4-10.8)
[2021-09-09 15:14] LABS: Calcium 8.6 mg/dL (8.5-10.1); Potassium 3.7 mmol/L (3.5-5.1); Uric Acid 9.4 mg/dL (2.6-6.0)
[2021-09-09 15:19] LABS: BUN/Creatinine Ratio 21.2; Bilirubin, Direct 0.6 mg/dL (0-0.2); Bilirubin, Total 1.2 mg/dL (0.2-1.0)
== END | disposition home or self-care (01) ==
LOC: Rad HDHVI 11:27
PROVIDERS: ATTEND Internal Medicine Cardiovascular Disease
DX: E11.9 Type 2 diabetes mellitus without complications (principal); D51.3 Other dietary vitamin B12 deficiency anemia; D64.9 Anemia, unspecified; E55.9 Vitamin D deficiency, unspecified; I10 Essential (primary) hypertension; R00.2 Palpitations; R53.1 Weakness; R30.0 Dysuria
CPT/HCPCS: 36415; 80048; 80061; 80076; 81003; 82306; 83036; 84443; 84550; 85025

== ENCOUNTER → 2021-10-28 | Outpatient (CLI) | payer MEDICARE, OTHER ==
[2021-10-28 16:38] LABS: Basophils # (auto) 0 10 ^3/uL (0-0.2); Basophils % (auto) 0.6 % (0.0-2.0); Eosinophils # (auto) 0.1 10 ^3/uL (0-0.8); Hemoglobin 9.6 g/dL (12.2-16.2); Lymphocytes # (auto) 0.5 10 ^3/uL (0.4-5.4); Lymphocytes % (auto) 10.3 % (10.0-50.0); Mean Corpuscular Hemoglobin 28.2 pg (28.0-32.0); Mean Corpuscular Hgb Conc. 33.2 g/dL (32.0-36.0); Mean Corpuscular Volume 84.9 fL (80.0-100.0); Monocytes # (auto) 0.6 10 ^3/uL (0-1.3); Monocytes % (auto) 12.2 % (0.0-12.0); Neutrophils # (auto) 3.5 10 ^3/uL (1.6-8.6); Neutrophils % (auto) 74.9 % (37.0-80.0); Nucleated Red Blood Cells % 0.1 %; Red Blood Cells 3.41 10^6/uL (4.0-5.20); Red Cell Distribution Width 20.7 % (11.8-14.3); White Blood Cell 4.7 10^3/uL (4.4-10.8)
[2021-10-28 16:51] LABS: Calcium 9.3 mg/dL (8.5-10.1); Potassium 4.8 mmol/L (3.5-5.1)
[2021-10-28 16:54] LABS: BUN/Creatinine Ratio 19.2
[2021-10-29 16:30] LABS: Urine Blood Negative /uL (Negative); Urine Specific Gravity 1.008 (1.001-1.035)
== END | disposition home or self-care (01) ==
LOC: LAB 13:16
PROVIDERS: ATTEND Internal Medicine Cardiovascular Disease
DX: N39.0 Urinary tract infection, site not specified (principal); D64.9 Anemia, unspecified; I10 Essential (primary) hypertension
CPT/HCPCS: 36415; 80048; 81003; 85025

== ENCOUNTER → 2021-12-04 | Outpatient (CLI) | payer MEDICARE ==
[2021-12-04 10:44] LABS: Basophils # (auto) 0 10 ^3/uL (0-0.2); Basophils % (auto) 0.5 % (0.0-2.0); Eosinophils # (auto) 0.2 10 ^3/uL (0-0.8); Eosinophils % (auto) 3.9 % (0.0-7.0); Hematocrit 27.8 % (36.0-46.0); Hemoglobin 9.3 g/dL (12.2-16.2); Lymphocytes # (auto) 0.4 10 ^3/uL (0.4-5.4); Lymphocytes % (auto) 10.9 % (10.0-50.0); Mean Corpuscular Hemoglobin 28.3 pg (28.0-32.0); Mean Corpuscular Hgb Conc. 33.5 g/dL (32.0-36.0); Mean Corpuscular Volume 84.7 fL (80.0-100.0); Monocytes # (auto) 0.5 10 ^3/uL (0-1.3); Monocytes % (auto) 11.2 % (0.0-12.0); Neutrophils % (auto) 73.5 % (37.0-80.0); Nucleated Red Blood Cells % 0.1 %; Red Blood Cells 3.28 10^6/uL (4.0-5.20); White Blood Cell 4.1 10^3/uL (4.4-10.8)
[2021-12-04 10:50] LABS: Red Cell Distribution Width 20.8 % (11.8-14.3)
[2021-12-04 10:58] LABS: INR 1.17 (0.9-1.15)
[2021-12-04 11:05] LABS: Albumin 2.9 g/dL (3.4-5.0); Calcium 9.3 mg/dL (8.5-10.1); Potassium 4.4 mmol/L (3.5-5.1)
[2021-12-04 11:09] LABS: BUN/Creatinine Ratio 16.6; Bilirubin, Total 1.7 mg/dL (0.2-1.0); Total Protein 7.8 g/dL (6.4-8.2)
== END | disposition home or self-care (01) ==
LOC: LAB 10:16
PROVIDERS: ATTEND Internal Medicine Gastroenterology
DX: K74.60 Unspecified cirrhosis of liver (principal); Q27.33 Arteriovenous malformation of digestive system vessel
CPT/HCPCS: 36415; 80053; 82105; 82140; 85025; 85610

== ENCOUNTER 2022-01-06 11:32 | Inpatient (IN) | payer MEDICARE, OTHER ==
[~2022-01-06] VITALS: Ht 152.4 cm; Wt 53.5 kg
[2022-01-06] MEDS ORDERED: SODIUM CHLORIDE 0.9% 500 ML IVB ONE (11:45)
[2022-01-06 12:57] LABS: Albumin 2.6 g/dL (3.4-5.0); Calcium 8.5 mg/dL (8.5-10.1); Potassium 4.2 mmol/L (3.5-5.1)
[2022-01-06 13:01] LABS: BUN/Creatinine Ratio 16.8; Bilirubin, Total 1.6 mg/dL (0.2-1.0); Total Protein 7.3 g/dL (6.4-8.2)
[2022-01-06 13:09] LABS: Basophils # (auto) 0 10 ^3/uL (0-0.2); Basophils % (auto) 0.8 % (0.0-2.0); Eosinophils # (auto) 0.1 10 ^3/uL (0-0.8); Eosinophils % (auto) 2.3 % (0.0-7.0); Hematocrit 28.5 % (36.0-46.0); Hemoglobin 8.9 g/dL (12.2-16.2); Lymphocytes # (auto) 0.5 10 ^3/uL (0.4-5.4); Lymphocytes % (auto) 13.9 % (10.0-50.0); Mean Corpuscular Hgb Conc. 31.4 g/dL (32.0-36.0); Mean Corpuscular Volume 86.1 fL (80.0-100.0); Monocytes # (auto) 0.5 10 ^3/uL (0-1.3); Monocytes % (auto) 14.6 % (0.0-12.0); Neutrophils # (auto) 2.5 10 ^3/uL (1.6-8.6); Neutrophils % (auto) 68.4 % (37.0-80.0); Nucleated Red Blood Cells % 0.1 %; Red Blood Cells 3.31 10^6/uL (4.0-5.20); White Blood Cell 3.7 10^3/uL (4.4-10.8)
[2022-01-06 13:27] LABS: INR 1.1 (0.9-1.15)
[2022-01-06] MEDS ORDERED: SODIUM CHLORIDE 0.9% 2,000 ML IV ONE (14:30)
[2022-01-06] MEDS ORDERED: DEXTROSE (50%) 50ML SYRG IV PRN (14:30)
[2022-01-06] MEDS ORDERED: cefTRIAXone 1GM/50ML D5W 50 ML IV ONE (14:30)
[2022-01-06 14:49] LABS: Urine Bacteria FEW /hpf (None Seen); Urine Blood Negative /uL (Negative); Urine Specific Gravity 1.007 (1.001-1.035); Urine WBC 2 /hpf (0 - 5)
[2022-01-06] MEDS ORDERED: ACCU-CHEK COMFORT CURVE STRIP VI SCH (17:00)
[2022-01-06] MEDS ORDERED: InsuLIN REG 1unit/0.01ml Soln (100units/ml) SC SCH ×2 (17:00→22:00)
[2022-01-06 19:40] VITALS: BP 127/56
[2022-01-07] MEDS ORDERED: LEVOTHYROXINE SODIUM 50 MCG TAB PO SCH (07:00)
[2022-01-07] MEDS ORDERED: PANTOPRAZOLE 40 MG TAB PO SCH (10:00)
[2022-01-07] MEDS ORDERED: LACTULOSE 20Gm/30ML SOLN PO SCH (10:00)
== END 2022-01-06 21:57 | disposition home or self-care (01) | DRG 442 ==
LOC: ER 11:32 → EDBD 11:32 → TELE 14:43
PROVIDERS: ADMIT Internal Medicine Cardiovascular Disease; ATTEND Internal Medicine Cardiovascular Disease
DX: K72.90 Hepatic failure, unspecified without coma (principal); C94.6 Myelodysplastic disease, not elsewhere classified; E11.40 Type 2 diabetes mellitus with diabetic neuropathy, unspecified; D64.9 Anemia, unspecified; Z20.822 Contact with and (suspected) exposure to COVID-19; M10.9 Gout, unspecified; E11.65 Type 2 diabetes mellitus with hyperglycemia; E03.9 Hypothyroidism, unspecified; K74.60 Unspecified cirrhosis of liver; Z88.8 Allergy status to other drugs, medicaments and biological substances; Z90.49 Acquired absence of other specified parts of digestive tract
CPT/HCPCS: 36415; 70450; 74176; 80053; 81001; 82140; 82150; 83605; 83690; 85025; 85610; 85730; 87040; 87086; 93005; 96361; 96365; 99291; G0378; J0696

== ENCOUNTER → 2022-02-14 | Outpatient (CLI) | payer MEDICARE, OTHER ==
[~2022-02-14] MED LIST changes: +PANT40TA2 PO; +RIFA550T PO
[2022-02-14 12:35] LABS: Basophils # (auto) 0 10 ^3/uL (0-0.2); Basophils % (auto) 0.7 % (0.0-2.0); Eosinophils # (auto) 0.2 10 ^3/uL (0-0.8); Hemoglobin 8.2 g/dL (12.2-16.2); Mean Corpuscular Hemoglobin 27.8 pg (28.0-32.0); Neutrophils # (auto) 3.1 10 ^3/uL (1.6-8.6)
[2022-02-14 12:37] LABS: Eosinophils % (auto) 3.6 % (0.0-7.0); Hematocrit 25.4 % (36.0-46.0); Lymphocytes # (auto) 0.8 10 ^3/uL (0.4-5.4); Lymphocytes % (auto) 17.4 % (10.0-50.0); Mean Corpuscular Hgb Conc. 32.1 g/dL (32.0-36.0); Mean Corpuscular Volume 86.6 fL (80.0-100.0); Monocytes # (auto) 0.7 10 ^3/uL (0-1.3); Monocytes % (auto) 14.6 % (0.0-12.0); Neutrophils % (auto) 63.7 % (37.0-80.0); Red Blood Cells 2.93 10^6/uL (4.0-5.20); Red Cell Distribution Width 21.6 % (11.8-14.3); White Blood Cell 4.8 10^3/uL (4.4-10.8)
[2022-02-14 12:49] LABS: BUN/Creatinine Ratio 15.6; Calcium 8.9 mg/dL (8.5-10.1); Potassium 4.1 mmol/L (3.5-5.1); Uric Acid 7.5 mg/dL (2.6-6.0)
== END | disposition home or self-care (01) ==
LOC: LAB 10:38
PROVIDERS: ATTEND Internal Medicine Cardiovascular Disease
DX: M10.9 Gout, unspecified (principal); D64.9 Anemia, unspecified
CPT/HCPCS: 36415; 80048; 84550; 85025

== ENCOUNTER → 2022-02-17 | Outpatient (CLI) | payer MEDICARE, OTHER ==
[~2022-02-17] MED LIST changes: -PANT40TA2 PO; -RIFA550T PO
== END | disposition home or self-care (01) ==
LOC: Rad HDHVI 11:06
PROVIDERS: ATTEND Internal Medicine Cardiovascular Disease
DX: R91.8 Other nonspecific abnormal finding of lung field (principal); I50.23 Acute on chronic systolic (congestive) heart failure; R06.02 Shortness of breath
CPT/HCPCS: 71046; 83880

== ENCOUNTER 2022-02-21 08:00 | Day surgery (SDC) | payer MEDICARE, OTHER ==
[~2022-02-21] VITALS: Ht 144.8 cm; Wt 54.4 kg
[2022-02-21] VITALS (11 sets, daily range): BP systolic 112–135; BP diastolic 47–59
[~2022-02-21 08:00] MED LIST changes: -FERR-20 PO; -GLIP5TAB12 PO; +PANT40TA2 PO; +RIFA550T PO; -SITA100T7 PO
== END 2022-02-21 13:38 | disposition home or self-care (01) ==
LOC: CATH 08:00
PROVIDERS: ATTEND Internal Medicine Cardiovascular Disease
DX: D64.9 Anemia, unspecified (principal); I50.9 Heart failure, unspecified; Z82.49 Family history of ischemic heart disease and other diseases of the circulatory system; Z20.822 Contact with and (suspected) exposure to COVID-19
CPT/HCPCS: 36430; 86850; 86900; 86901; 86920; J7040; P9016; U0003

== ENCOUNTER → 2022-04-04 | Outpatient (CLI) | payer MEDICARE, OTHER ==
[2022-04-04 11:34] LABS: Basophils # (auto) 0 10 ^3/uL (0-0.2); Eosinophils # (auto) 0.1 10 ^3/uL (0-0.8); Lymphocytes # (auto) 0.5 10 ^3/uL (0.4-5.4); Lymphocytes % (auto) 15.1 % (10.0-50.0); Monocytes # (auto) 0.4 10 ^3/uL (0-1.3); Nucleated Red Blood Cells % 0.1 %; White Blood Cell 3.3 10^3/uL (4.4-10.8)
[2022-04-04 11:38] LABS: Basophils % (auto) 1.1 % (0.0-2.0); Eosinophils % (auto) 3.1 % (0.0-7.0); Hematocrit 23.8 % (36.0-46.0); Mean Corpuscular Hemoglobin 32.7 pg (28.0-32.0); Mean Corpuscular Hgb Conc. 33.6 g/dL (32.0-36.0); Mean Corpuscular Volume 97.2 fL (80.0-100.0); Monocytes % (auto) 13.3 % (0.0-12.0); Neutrophils # (auto) 2.2 10 ^3/uL (1.6-8.6); Neutrophils % (auto) 67.4 % (37.0-80.0); Red Blood Cells 2.45 10^6/uL (4.0-5.20)
[2022-04-04 12:09] LABS: Red Cell Distribution Width 22.7 % (11.8-14.3)
[2022-04-04 12:25] LABS: Potassium 4.2 mmol/L (3.5-5.1)
[2022-04-04 12:42] LABS: Albumin 2.6 g/dL (3.4-5.0); BUN/Creatinine Ratio 14.5; Bilirubin, Total 1.6 mg/dL (0.2-1.0); Calcium 8.4 mg/dL (8.5-10.1); Total Protein 7.2 g/dL (6.4-8.2)
[2022-04-04 14:23] LABS: Urine Blood Negative /uL (Negative); Urine Specific Gravity 1.007 (1.001-1.035)
== END | disposition home or self-care (01) ==
LOC: LAB 10:49
PROVIDERS: ATTEND Internal Medicine Cardiovascular Disease
DX: I10 Essential (primary) hypertension (principal); N39.0 Urinary tract infection, site not specified; D64.9 Anemia, unspecified
CPT/HCPCS: 36415; 80053; 81003; 85025

== ENCOUNTER 2022-04-09 09:05 | Day surgery (SDC) | payer MEDICARE, OTHER ==
[~2022-04-09] VITALS: Ht 144.8 cm; Wt 54.0 kg
[2022-04-09] VITALS (10 sets, daily range): BP systolic 108–135; BP diastolic 46–62
== END 2022-04-09 15:45 | disposition home or self-care (01) ==
LOC: CATH 09:05
PROVIDERS: ATTEND Internal Medicine Cardiovascular Disease
DX: D64.9 Anemia, unspecified (principal); I50.9 Heart failure, unspecified; Z82.49 Family history of ischemic heart disease and other diseases of the circulatory system; Z20.822 Contact with and (suspected) exposure to COVID-19
CPT/HCPCS: 36430; 86850; 86900; 86901; 86920; J7050; P9016; U0003

== ENCOUNTER → 2022-04-18 | Outpatient (CLI) | payer MEDICARE, OTHER ==
[2022-04-18 11:26] LABS: Hematocrit 28.3 % (36.0-46.0); Hemoglobin 9.4 g/dL (12.2-16.2); Mean Corpuscular Hemoglobin 33.6 pg (28.0-32.0); Mean Corpuscular Hgb Conc. 33.4 g/dL (32.0-36.0); Mean Corpuscular Volume 100.7 fL (80.0-100.0); Monocytes # (auto) 0.7 10 ^3/uL (0-1.3); Red Blood Cells 2.81 10^6/uL (4.0-5.20); White Blood Cell 4.3 10^3/uL (4.4-10.8)
[2022-04-18 11:32] LABS: Basophils # (auto) 0 10 ^3/uL (0-0.2); Basophils % (auto) 0.4 % (0.0-2.0); Eosinophils # (auto) 0.2 10 ^3/uL (0-0.8); Eosinophils % (auto) 4.1 % (0.0-7.0); Lymphocytes # (auto) 0.5 10 ^3/uL (0.4-5.4); Lymphocytes % (auto) 12.1 % (10.0-50.0); Monocytes % (auto) 16.6 % (0.0-12.0); Neutrophils # (auto) 2.8 10 ^3/uL (1.6-8.6); Neutrophils % (auto) 66.8 % (37.0-80.0)
[2022-04-18 11:40] LABS: Albumin 2.3 g/dL (3.4-5.0); Calcium 8.6 mg/dL (8.5-10.1); Potassium 4.9 mmol/L (3.5-5.1)
[2022-04-18 11:43] LABS: INR 1.13 (0.9-1.15); Partial Thromboplastin Time 32.2 sec (24.6-33.4)
[2022-04-18 11:46] LABS: BUN/Creatinine Ratio 20.4; Bilirubin, Total 4.8 mg/dL (0.2-1.0)
[2022-04-18 12:01] LABS: Red Cell Distribution Width 23.9 % (11.8-14.3)
[2022-04-23 12:40] LABS: Urine Blood Negative /uL (Negative); Urine Specific Gravity 1.007 (1.001-1.035)
== END | disposition home or self-care (01) ==
LOC: LAB 10:46
PROVIDERS: ATTEND Internal Medicine Cardiovascular Disease
DX: D64.9 Anemia, unspecified (principal); N39.0 Urinary tract infection, site not specified; R06.02 Shortness of breath; D68.9 Coagulation defect, unspecified
CPT/HCPCS: 36415; 80053; 81003; 85025; 85045; 85610; 85730

== ENCOUNTER → 2022-05-16 | Outpatient (CLI) | payer MEDICARE, OTHER ==
[2022-05-16 13:35] LABS: Basophils # (auto) 0 10 ^3/uL (0-0.2); Eosinophils # (auto) 0.1 10 ^3/uL (0-0.8); Lymphocytes # (auto) 0.5 10 ^3/uL (0.4-5.4); Nucleated Red Blood Cells % 0.2 %
[2022-05-16 13:37] LABS: Basophils % (auto) 0.7 % (0.0-2.0); Eosinophils % (auto) 3.3 % (0.0-7.0); Hematocrit 27.1 % (36.0-46.0); Hemoglobin 9.1 g/dL (12.2-16.2); Lymphocytes % (auto) 13.3 % (10.0-50.0); Mean Corpuscular Hemoglobin 39.2 pg (28.0-32.0); Mean Corpuscular Hgb Conc. 33.5 g/dL (32.0-36.0); Mean Corpuscular Volume 117.1 fL (80.0-100.0); Monocytes # (auto) 0.3 10 ^3/uL (0-1.3); Monocytes % (auto) 9.3 % (0.0-12.0); Neutrophils # (auto) 2.6 10 ^3/uL (1.6-8.6); Neutrophils % (auto) 73.4 % (37.0-80.0); Red Blood Cells 2.32 10^6/uL (4.0-5.20); White Blood Cell 3.5 10^3/uL (4.4-10.8)
[2022-05-16 13:53] LABS: Albumin 2.2 g/dL (3.4-5.0); BUN/Creatinine Ratio 13.9; Calcium 8.5 mg/dL (8.5-10.1); Potassium 4.1 mmol/L (3.5-5.1)
[2022-05-16 13:56] LABS: Bilirubin, Total 3.5 mg/dL (0.2-1.0); Total Protein 7.6 g/dL (6.4-8.2)
[2022-05-16 13:57] LABS: Red Cell Distribution Width 20.3 % (11.8-14.3)
[2022-05-16 14:29] LABS: INR 1.14 (0.9-1.15)
== END | disposition home or self-care (01) ==
LOC: LAB 10:42
PROVIDERS: ATTEND Internal Medicine Cardiovascular Disease
DX: I85.00 Esophageal varices without bleeding (principal)
CPT/HCPCS: 36415; 80053; 85025; 85610; 85730

== ENCOUNTER → 2022-05-19 | Outpatient (CLI) | payer MEDICARE, OTHER ==
[2022-05-19 12:12] LABS: Urine Blood TRACE /uL (Negative); Urine Specific Gravity 1.007 (1.001-1.035)
== END | disposition home or self-care (01) ==
LOC: LAB 11:10
PROVIDERS: ATTEND Internal Medicine Cardiovascular Disease
DX: N39.0 Urinary tract infection, site not specified (principal)
CPT/HCPCS: 81003

== ENCOUNTER 2022-07-05 09:45 | Inpatient (IN) | payer MEDICARE, OTHER ==
[~2022-07-05] VITALS: Ht 157.5 cm; Wt 60.9 kg
[2022-07-05] MEDS ORDERED: SODIUM CHLORIDE 0.9% 500 ML IVB ONE (10:00)
[2022-07-05] MEDS ORDERED: SODIUM CHLORIDE 0.9% 1,000 ML IV ONE (10:00)
[2022-07-05 11:30] LABS: Basophils # (auto) 0 10 ^3/uL (0-0.2); Eosinophils # (auto) 0 10 ^3/uL (0-0.8); Lymphocytes # (auto) 0.5 10 ^3/uL (0.4-5.4); Mean Corpuscular Hemoglobin 31.6 pg (28.0-32.0); Monocytes # (auto) 0.3 10 ^3/uL (0-1.3)
[2022-07-05 11:33] LABS: Basophils % (auto) 0.6 % (0.0-2.0); Eosinophils % (auto) 0.3 % (0.0-7.0); Mean Corpuscular Hgb Conc. 31.8 g/dL (32.0-36.0); Mean Corpuscular Volume 99.3 fL (80.0-100.0); Monocytes % (auto) 8.5 % (0.0-12.0); Neutrophils # (auto) 3.1 10 ^3/uL (1.6-8.6); Neutrophils % (auto) 77.6 % (37.0-80.0); Nucleated Red Blood Cells % 0.5 %; Red Blood Cells 2.52 10^6/uL (4.0-5.20); Red Cell Distribution Width 19.6 % (11.8-14.3); White Blood Cell 3.9 10^3/uL (4.4-10.8)
[2022-07-05 11:46] LABS: INR 1.08 (0.9-1.15); Partial Thromboplastin Time 29.9 sec (24.6-33.4)
[2022-07-05 11:54] LABS: Urine Bacteria NONE SEEN /hpf (None Seen); Urine Blood Negative /uL (Negative); Urine Specific Gravity 1.012 (1.001-1.035); Urine WBC 1 /hpf (0 - 5)
[2022-07-05 12:13] LABS: Alcohol, Urine < 3.0 mg/dL (0-10); Amphetamine Screen, Urine NEGATIVE (NEGATIVE); Barbiturate Scree,Urine NEGATIVE (NEGATIVE); Benzodiazephine Screen, Urine NEGATIVE (NEGATIVE); Cannabinoid Screen, Urine NEGATIVE (NEGATIVE); Cocaine Screen, Urine NEGATIVE (NEGATIVE); Opiate Scree,Urine NEGATIVE (NEGATIVE); Phencyclidine Screen, Urine NEGATIVE (NEGATIVE)
[2022-07-05 12:14] LABS: Albumin 2.7 g/dL (3.4-5.0); Magnesium 2.1 mg/dL (1.6-2.6); Potassium 4.9 mmol/L (3.5-5.1)
[2022-07-05 12:20] LABS: BUN/Creatinine Ratio 18.1; Bilirubin, Total 1.9 mg/dL (0.2-1.0); Calcium 8.4 mg/dL (8.5-10.1); Total Protein 7.5 g/dL (6.4-8.2)
[2022-07-05] MEDS ORDERED: NITROGLYCERIN 0.4 MG SL TAB SL PRN (13:30)
[2022-07-05] MEDS ORDERED: MORPHINE SULFATE INJ 2 MG/ml SYRG IV PRN (13:30)
[2022-07-05] MEDS ORDERED: Nepro With Carb Steady 1 Liter Bottle GT SCH (14:00)
[2022-07-05] MEDS ORDERED: ACETAMINOPHEN 500 MG TAB PO PRN (14:00)
[2022-07-05] MEDS ORDERED: ONDANSETRON HCL 4 MG/2 ML VIAL IV PRN (14:00)
[2022-07-05 17:34] VITALS: BP 109/46
[2022-07-05 17:49] VITALS: BP 134/59
[2022-07-05] MEDS: LACTULOSE 20Gm/30ML SOLN PO SCH (18:10)
[2022-07-05 19:31] VITALS: BP 141/66
[2022-07-05] MEDS: rifAXIMin 550 MG TAB PO SCH (22:11)
[2022-07-06] MEDS: LACTULOSE 20Gm/30ML SOLN PO SCH ×5 (00:12→23:52)
[2022-07-06] MEDS: SPIRONOLACTONE 25 MG TAB PO SCH (06:43)
[2022-07-06 07:00] LABS: Basophils # (auto) 0 10 ^3/uL (0-0.2); Basophils % (auto) 0.4 % (0.0-2.0); Eosinophils # (auto) 0.1 10 ^3/uL (0-0.8); Hemoglobin 8.6 g/dL (12.2-16.2); Lymphocytes # (auto) 0.3 10 ^3/uL (0.4-5.4); Monocytes # (auto) 0.6 10 ^3/uL (0-1.3); Neutrophils # (auto) 3.2 10 ^3/uL (1.6-8.6); Red Cell Distribution Width 19.1 % (11.8-14.3); White Blood Cell 4.2 10^3/uL (4.4-10.8)
[2022-07-06 07:02] LABS: Eosinophils % (auto) 1.9 % (0.0-7.0); Hematocrit 25.1 % (36.0-46.0); Lymphocytes % (auto) 7.7 % (10.0-50.0); Mean Corpuscular Hemoglobin 31.6 pg (28.0-32.0); Mean Corpuscular Hgb Conc. 34.2 g/dL (32.0-36.0); Mean Corpuscular Volume 92.4 fL (80.0-100.0); Monocytes % (auto) 14.5 % (0.0-12.0); Neutrophils % (auto) 75.5 % (37.0-80.0); Nucleated Red Blood Cells % 0.3 %; Red Blood Cells 2.72 10^6/uL (4.0-5.20)
[2022-07-06 07:16] LABS: BUN/Creatinine Ratio 21.1; Calcium 8.8 mg/dL (8.5-10.1); Potassium 4.5 mmol/L (3.5-5.1)
[2022-07-06] MEDS ORDERED: PANTOPRAZOLE 40 MG/10 ML VIAL INJ IV SCH (10:00)
[2022-07-06] MEDS: SODIUM CHLORIDE 0.9% 1,000 ML IV SCH ×3 (10:10→18:18)
[2022-07-06] MEDS: rifAXIMin 550 MG TAB PO SCH ×2 (10:28→21:59)
[2022-07-06] MEDS ORDERED: CLINIMIX PER PHARMACY 0 ML IV SCH ×2 (11:45→12:15)
[2022-07-06 13:50] VITALS: BP 140/60
[2022-07-06] MEDS ORDERED: SODIUM CHLORIDE 0.9% 1,000 ML IV SCH (14:00)
[2022-07-06] MEDS ORDERED: ONDANSETRON HCL 4 MG/2 ML VIAL IV PRN (14:15)
[2022-07-06 14:57] LABS: Urine Bacteria FEW /hpf (None Seen); Urine Blood 3+ /uL (Negative); Urine Specific Gravity 1.015 (1.001-1.035); Urine WBC 52 /hpf (0 - 5)
[2022-07-06] MEDS ORDERED: FURO40TA4 PO (15:05)
[2022-07-06] MEDS ORDERED: SUCR1TAB PO (15:07)
[2022-07-06 16:46] VITALS: BP 137/59
[2022-07-06] MEDS ORDERED: CLINIMIX PER PHARMACY IV NR (20:00)
[2022-07-06] MEDS ORDERED: DEXTROSE (50%) 50ML SYRG IV SCH (20:00)
[2022-07-06] MEDS: PANTOPRAZOLE 40 MG/10 ML VIAL INJ IV SCH (21:59)
[2022-07-06 22:00] VITALS: BP 147/58
[2022-07-06] MEDS: ACCU-CHEK COMFORT CURVE STRIP VI SCH (23:52)
[2022-07-07] VITALS (9 sets, daily range): BP systolic 114–149; BP diastolic 52–67
[2022-07-07] MEDS: InsuLIN REG 1unit/0.01ml Soln (100units/ml) SC SCH ×5 (00:07→23:54)
[2022-07-07 05:10] LABS: Albumin 2.5 g/dL (3.4-5.0); Calcium 8.9 mg/dL (8.5-10.1); Potassium 4.3 mmol/L (3.5-5.1)
[2022-07-07 05:12] LABS: BUN/Creatinine Ratio 17.5
[2022-07-07 05:31] LABS: Magnesium 2.1 mg/dL (1.6-2.6); Phosphorus 2.2 mg/dL (2.5-4.90)
[2022-07-07] MEDS: LACTULOSE 20Gm/30ML SOLN PO SCH ×3 (05:34→22:44)
[2022-07-07] MEDS: SODIUM CHLORIDE 0.9% 1,000 ML IV SCH ×2 (05:44→23:20)
[2022-07-07] MEDS: ACCU-CHEK COMFORT CURVE STRIP VI SCH ×4 (06:09→23:48)
[2022-07-07] MEDS: SPIRONOLACTONE 25 MG TAB PO SCH (06:12)
[2022-07-07] MEDS ORDERED: cefTRIAXone 1GM/50ML D5W 50 ML IV ONE (08:00)
[2022-07-07 08:27] LABS: Hemoglobin 8.5 g/dL (12.2-16.2)
[2022-07-07 08:28] LABS: Hematocrit 26.6 % (36.0-46.0)
[2022-07-07] MEDS: rifAXIMin 550 MG TAB PO SCH ×2 (09:50→22:47)
[2022-07-07] MEDS: PANTOPRAZOLE 40 MG/10 ML VIAL INJ IV SCH ×2 (09:50→22:42)
[2022-07-07] MEDS ORDERED: MIDAZOLAM HCL 2MG/2ML 2ml VIAL (1mg/ml) ONE (10:28)
[2022-07-07] MEDS ORDERED: SODIUM PHOSP 20MEQ(15MMOL) IN NS 100 ML IV ONE (14:00)
[2022-07-07] MEDS ORDERED: AMINO ACID INFUSION IN D10W 1,000 ML IV NR (20:00)
[2022-07-08 04:48] LABS: Basophils # (auto) 0 10 ^3/uL (0-0.2); Eosinophils # (auto) 0.1 10 ^3/uL (0-0.8); Eosinophils % (auto) 2.5 % (0.0-7.0); Hematocrit 27.7 % (36.0-46.0); Lymphocytes # (auto) 0.3 10 ^3/uL (0.4-5.4); Monocytes # (auto) 0.4 10 ^3/uL (0-1.3); Red Blood Cells 3.03 10^6/uL (4.0-5.20); White Blood Cell 3.6 10^3/uL (4.4-10.8)
[2022-07-08 04:49] VITALS: BP 117/48
[2022-07-08 04:50] LABS: Basophils % (auto) 0.3 % (0.0-2.0); Hemoglobin 9.4 g/dL (12.2-16.2); Mean Corpuscular Hemoglobin 31.1 pg (28.0-32.0); Mean Corpuscular Volume 91.7 fL (80.0-100.0); Monocytes % (auto) 11.7 % (0.0-12.0); Neutrophils # (auto) 2.8 10 ^3/uL (1.6-8.6); Neutrophils % (auto) 76.5 % (37.0-80.0); Nucleated Red Blood Cells % 0.3 %; Red Cell Distribution Width 18.9 % (11.8-14.3)
[2022-07-08 05:04] LABS: Albumin 2.3 g/dL (3.4-5.0); BUN/Creatinine Ratio 19.3; Magnesium 1.6 mg/dL (1.6-2.6); Potassium 3.8 mmol/L (3.5-5.1)
[2022-07-08] MEDS: LACTULOSE 20Gm/30ML SOLN PO SCH ×3 (05:54→22:00)
[2022-07-08] MEDS: ACCU-CHEK COMFORT CURVE STRIP VI SCH ×3 (05:54→17:37)
[2022-07-08] MEDS: SPIRONOLACTONE 25 MG TAB PO SCH (06:41)
[2022-07-08] MEDS: InsuLIN REG 1unit/0.01ml Soln (100units/ml) SC SCH ×3 (06:50→17:37)
[2022-07-08] MEDS ORDERED: SODIUM PHOSPHATES 40 MEQ in D5W 5% 250 ML IV ONE (08:00)
[2022-07-08] MEDS: MAGNESIUM SULFATE 1GM/100ML 100 ML IV SCH ×2 (08:40→10:00)
[2022-07-08 09:00] VITALS: BP 131/52
[2022-07-08] MEDS: rifAXIMin 550 MG TAB PO SCH ×2 (10:00→22:00)
[2022-07-08] MEDS ORDERED: PPN PER PHARMACY 0 ML IV SCH (10:45)
[2022-07-08] MEDS: cefTRIAXone 1GM/50ML D5W 50 ML IV SCH (11:59)
[2022-07-08] MEDS: PANTOPRAZOLE 40 MG/10 ML VIAL INJ IV SCH ×2 (12:00→21:19)
[2022-07-08 13:00] VITALS: BP 131/48
[2022-07-08 15:07] LABS: INR 1.09 (0.9-1.15)
[2022-07-08 17:00] VITALS: BP 128/55
[2022-07-08] MEDS ORDERED: PPN PER PHARMACY IV NR ×10 (20:00)
[2022-07-08 22:00] VITALS: BP 124/55
[2022-07-09] MEDS: InsuLIN REG 1unit/0.01ml Soln (100units/ml) SC SCH ×5 (00:31→23:49)
[2022-07-09] MEDS: ACCU-CHEK COMFORT CURVE STRIP VI SCH ×5 (00:31→23:47)
[2022-07-09 05:00] VITALS: BP 103/63
[2022-07-09] MEDS: LACTULOSE 20Gm/30ML SOLN PO SCH ×3 (05:44→21:42)
[2022-07-09] MEDS: SPIRONOLACTONE 25 MG TAB PO SCH (06:14)
[2022-07-09 06:48] LABS: Potassium 3.3 mmol/L (3.5-5.1)
[2022-07-09 06:59] LABS: BUN/Creatinine Ratio 26.2; Calcium 7.9 mg/dL (8.5-10.1); Magnesium 2.2 mg/dL (1.6-2.6); Phosphorus 3.2 mg/dL (2.5-4.90)
[2022-07-09 08:10] VITALS: BP 108/59
[2022-07-09] MEDS ORDERED: POTASSIUM CHL 20MEQ/100ML 100 ML IV ONE (08:30)
[2022-07-09] MEDS ORDERED: BARIUM SULFATE 98% 340 GM PWDR ONE (09:10)
[2022-07-09] MEDS: PANTOPRAZOLE 40 MG/10 ML VIAL INJ IV SCH ×2 (10:36→21:42)
[2022-07-09] MEDS: cefTRIAXone 1GM/50ML D5W 50 ML IV SCH (10:37)
[2022-07-09 12:00] VITALS: BP 118/53
[2022-07-09] MEDS: rifAXIMin 550 MG TAB PO SCH ×2 (13:39→21:42)
[2022-07-09 16:00] VITALS: BP 116/50
[2022-07-09] MEDS ORDERED: PPN PER PHARMACY IV NR ×10 (20:00)
[2022-07-09 21:42] VITALS: BP 111/49
[2022-07-10] VITALS (11 sets, daily range): BP systolic 98–119; BP diastolic 36–52
[2022-07-10] MEDS: ACCU-CHEK COMFORT CURVE STRIP VI SCH ×4 (05:40→23:55)
[2022-07-10] MEDS: InsuLIN REG 1unit/0.01ml Soln (100units/ml) SC SCH ×4 (05:43→23:56)
[2022-07-10] MEDS: LACTULOSE 20Gm/30ML SOLN PO SCH ×3 (06:12→21:55)
[2022-07-10 06:48] LABS: Albumin 2.1 g/dL (3.4-5.0); Calcium 7.9 mg/dL (8.5-10.1); Magnesium 2.4 mg/dL (1.6-2.6); Potassium 3.8 mmol/L (3.5-5.1)
[2022-07-10 06:50] LABS: BUN/Creatinine Ratio 30.7; Phosphorus 3.2 mg/dL (2.5-4.90)
[2022-07-10] MEDS: SPIRONOLACTONE 25 MG TAB PO SCH (07:00)
[2022-07-10 08:14] LABS: Hematocrit 26.7 % (36.0-46.0)
[2022-07-10] MEDS: cefTRIAXone 1GM/50ML D5W 50 ML IV SCH (09:52)
[2022-07-10] MEDS: rifAXIMin 550 MG TAB PO SCH ×2 (09:52→21:56)
[2022-07-10] MEDS: PANTOPRAZOLE 40 MG/10 ML VIAL INJ IV SCH ×2 (09:52→21:56)
[2022-07-10] MEDS ORDERED: EPOETIN ALFA-EPBX 10,000 UNIT/1ML VIAL SC ONE (12:15)
[2022-07-10] MEDS ORDERED: PPN PER PHARMACY IV NR ×10 (20:00)
[2022-07-11 05:00] VITALS: BP 116/43
[2022-07-11] MEDS: ACCU-CHEK COMFORT CURVE STRIP VI SCH ×3 (06:20→17:48)
[2022-07-11] MEDS: LACTULOSE 20Gm/30ML SOLN PO SCH ×3 (06:24→23:54)
[2022-07-11] MEDS: InsuLIN REG 1unit/0.01ml Soln (100units/ml) SC SCH ×3 (06:24→17:49)
[2022-07-11 06:31] LABS: Albumin 2.1 g/dL (3.4-5.0); Calcium 8.1 mg/dL (8.5-10.1)
[2022-07-11 06:34] LABS: BUN/Creatinine Ratio 31.3; Magnesium 2.6 mg/dL (1.6-2.6)
[2022-07-11] MEDS: SPIRONOLACTONE 25 MG TAB PO SCH (06:53)
[2022-07-11 09:00] VITALS: BP 110/50
[2022-07-11] MEDS: cefTRIAXone 1GM/50ML D5W 50 ML IV SCH (09:25)
[2022-07-11] MEDS: rifAXIMin 550 MG TAB PO SCH ×2 (10:21→23:54)
[2022-07-11] MEDS: PANTOPRAZOLE 40 MG/10 ML VIAL INJ IV SCH ×2 (10:21→23:54)
[2022-07-11 11:13] LABS: Basophils # (auto) 0 10 ^3/uL (0-0.2); Basophils % (auto) 0.6 % (0.0-2.0); Eosinophils # (auto) 0.1 10 ^3/uL (0-0.8); Eosinophils % (auto) 2.9 % (0.0-7.0); Hematocrit 26.4 % (36.0-46.0); Hemoglobin 8.7 g/dL (12.2-16.2); Lymphocytes # (auto) 0.5 10 ^3/uL (0.4-5.4); Mean Corpuscular Hgb Conc. 33.1 g/dL (32.0-36.0); Mean Corpuscular Volume 93.7 fL (80.0-100.0); Monocytes # (auto) 0.5 10 ^3/uL (0-1.3); Monocytes % (auto) 11.6 % (0.0-12.0); Neutrophils # (auto) 2.8 10 ^3/uL (1.6-8.6); Neutrophils % (auto) 70.9 % (37.0-80.0); Nucleated Red Blood Cells % 0.5 %; Red Blood Cells 2.81 10^6/uL (4.0-5.20); Red Cell Distribution Width 19.9 % (11.8-14.3); White Blood Cell 3.9 10^3/uL (4.4-10.8)
[2022-07-11 11:24] LABS: Albumin 2.1 g/dL (3.4-5.0); Calcium 7.9 mg/dL (8.5-10.1)
[2022-07-11 11:27] LABS: BUN/Creatinine Ratio 31.6; Bilirubin, Total 1.3 mg/dL (0.2-1.0); Total Protein 5.9 g/dL (6.4-8.2)
[2022-07-11 13:00] VITALS: BP 114/57
[2022-07-11 16:45] VITALS: BP 96/43
[2022-07-11] MEDS ORDERED: PPN PER PHARMACY IV NR ×11 (20:00)
[2022-07-11 22:00] VITALS: BP 93/44
[2022-07-12] MEDS: ACCU-CHEK COMFORT CURVE STRIP VI SCH ×5 (00:12→22:03)
[2022-07-12 05:00] VITALS: BP 94/44
[2022-07-12] MEDS: InsuLIN REG 1unit/0.01ml Soln (100units/ml) SC SCH ×5 (06:00→22:00)
[2022-07-12 06:14] LABS: Protein, Urine 30.7 mg/dL (0.0-11.9)
[2022-07-12] MEDS: LACTULOSE 20Gm/30ML SOLN PO SCH ×3 (07:02→22:02)
[2022-07-12] MEDS: SPIRONOLACTONE 25 MG TAB PO SCH (07:02)
[2022-07-12] MEDS: cefTRIAXone 1GM/50ML D5W 50 ML IV SCH (08:47)
[2022-07-12] MEDS: PANTOPRAZOLE 40 MG/10 ML VIAL INJ IV SCH ×2 (08:47→22:02)
[2022-07-12] MEDS: rifAXIMin 550 MG TAB PO SCH ×2 (08:48→22:02)
[2022-07-12 09:00] VITALS: BP 129/59
[2022-07-12] MEDS ORDERED: ALBUTEROL SULF 2.5 MG/0.5ML(0.5%) NEB SOLN NEB PRN (12:45)
[2022-07-12] MEDS ORDERED: DEXTROSE (50%) 50ML SYRG IV PRN (12:45)
[2022-07-12 13:00] VITALS: BP 125/103
[2022-07-12 14:19] VITALS: BP 129/59
[2022-07-12 17:01] VITALS: BP 140/79
[2022-07-12 22:00] VITALS: BP 117/49
[2022-07-13 05:00] VITALS: BP 119/43
[2022-07-13 05:32] LABS: BUN/Creatinine Ratio 28.2; Calcium 8.4 mg/dL (8.5-10.1); Potassium 4.7 mmol/L (3.5-5.1)
[2022-07-13] MEDS ORDERED: ALBUTEROL MEDNEB 2.5 mg/3ml NEB ONE (06:40)
[2022-07-13] MEDS: LACTULOSE 20Gm/30ML SOLN PO SCH (06:56)
[2022-07-13] MEDS: SPIRONOLACTONE 25 MG TAB PO SCH (06:57)
[2022-07-13] MEDS: InsuLIN REG 1unit/0.01ml Soln (100units/ml) SC SCH (06:57)
[2022-07-13] MEDS: ACCU-CHEK COMFORT CURVE STRIP VI SCH (06:57)
[2022-07-13] MEDS: rifAXIMin 550 MG TAB PO SCH (08:52)
[2022-07-13] MEDS: PANTOPRAZOLE 40 MG/10 ML VIAL INJ IV SCH (08:52)
[2022-07-13] MEDS: cefTRIAXone 1GM/50ML D5W 50 ML IV SCH (08:52)
[2022-07-13 09:00] VITALS: BP 112/69
[2022-07-13 11:45] VITALS: BP 112/69
[2022-07-13 13:00] VITALS: BP 111/92
== END 2022-07-13 13:00 | disposition home or self-care (01) | DRG 441 ==
LOC: EDBD 09:45 → ER 10:03 → TELE 13:46 → TELE-CENTR 07-06 13:46
PROVIDERS: ADMIT Nurse Practitioner Acute Care; ATTEND Family Medicine
PROC: 30233N1 Transfusion of Nonautologous Red Blood Cells into Peripheral Vein, Percutaneous Approach (ICD-10-PCS; 2022-07-05)
PROC: 05H933Z Insertion of Infusion Device into Right Brachial Vein, Percutaneous Approach (ICD-10-PCS; 2022-07-09)
PROC: B54MZZA Ultrasonography of Right Upper Extremity Veins, Guidance (ICD-10-PCS; 2022-07-09)
PROC: 0W9G3ZZ Drainage of Peritoneal Cavity, Percutaneous Approach (ICD-10-PCS; principal; 2022-07-10)
PROC: 30233R1 Transfusion of Nonautologous Platelets into Peripheral Vein, Percutaneous Approach (ICD-10-PCS; 2022-07-10)
DX: K76.82 Hepatic encephalopathy (principal); G93.41 Metabolic encephalopathy; K85.90 Acute pancreatitis without necrosis or infection, unspecified; N18.6 End stage renal disease; D61.818 Other pancytopenia; E44.0 Moderate protein-calorie malnutrition; N39.0 Urinary tract infection, site not specified; E22.2 Syndrome of inappropriate secretion of antidiuretic hormone; I12.0 Hypertensive chronic kidney disease with stage 5 chronic kidney disease or end stage renal disease; N17.9 Acute kidney failure, unspecified; K92.2 Gastrointestinal hemorrhage, unspecified; R18.8 Other ascites; Z20.822 Contact with and (suspected) exposure to COVID-19; D63.8 Anemia in other chronic diseases classified elsewhere; E11.42 Type 2 diabetes mellitus with diabetic polyneuropathy; E11.65 Type 2 diabetes mellitus with hyperglycemia; K59.00 Constipation, unspecified; E86.0 Dehydration; R13.10 Dysphagia, unspecified; K76.0 Fatty (change of) liver, not elsewhere classified; E78.5 Hyperlipidemia, unspecified; K74.60 Unspecified cirrhosis of liver; E11.22 Type 2 diabetes mellitus with diabetic chronic kidney disease; E03.9 Hypothyroidism, unspecified; E87.6 Hypokalemia; F02.80 Dementia in other diseases classified elsewhere, unspecified severity, without behavioral disturbance, psychotic disturbance, mood disturbance, and anxiety; G30.9 Alzheimer's disease, unspecified; Z68.22 Body mass index [BMI] 22.0-22.9, adult; Z82.3 Family history of stroke; Z88.8 Allergy status to other drugs, medicaments and biological substances; Z82.49 Family history of ischemic heart disease and other diseases of the circulatory system; Z83.3 Family history of diabetes mellitus; Z79.899 Other long term (current) drug therapy; Z90.49 Acquired absence of other specified parts of digestive tract
CPT/HCPCS: 36415; 36430; 70450; 70551; 71045; 74176; 74230; 76705; 76942; 80048; 80053; 80069; 80307; 81001; 82040; 82140; 82570; 82962; 83690; 83735; 83935; 83986; 84100; 84156; 84300; 84478; 84484; 85014; 85018; 85025; 85610; 85730; 86850; 86900; 86901; 86920; 87040; 87086; 87205; 87426; 89051; 92610; 92611; 93005; 95819; 96361; 96365; 97110; 97116; 97163; 97530; 99291; C9113; G0378; J0696; J1815; J2250; J3480; J7060; J7131

== ENCOUNTER → 2022-09-18 | Outpatient (CLI) | payer MEDICARE, OTHER, MEDICAID ==
[~2022-09-18] MED LIST changes: -FURO20TA3 PO; +FURO40TA4 PO; +SUCR1TAB PO
[2022-09-18 11:49] LABS: Basophils # (auto) 0 10 ^3/uL (0-0.2); Eosinophils # (auto) 0.1 10 ^3/uL (0-0.8); Monocytes # (auto) 0.5 10 ^3/uL (0-1.3); Nucleated Red Blood Cells % 0.1 %
[2022-09-18 11:52] LABS: Basophils % (auto) 0.8 % (0.0-2.0); Hematocrit 29.4 % (36.0-46.0); Hemoglobin 10.1 g/dL (12.2-16.2); Lymphocytes # (auto) 0.5 10 ^3/uL (0.4-5.4); Lymphocytes % (auto) 18.1 % (10.0-50.0); Mean Corpuscular Hemoglobin 36.5 pg (28.0-32.0); Mean Corpuscular Hgb Conc. 34.4 g/dL (32.0-36.0); Mean Corpuscular Volume 106.2 fL (80.0-100.0); Monocytes % (auto) 16.6 % (0.0-12.0); Neutrophils # (auto) 1.7 10 ^3/uL (1.6-8.6); Neutrophils % (auto) 60.5 % (37.0-80.0); Red Blood Cells 2.77 10^6/uL (4.0-5.20); Red Cell Distribution Width 16.5 % (11.8-14.3); White Blood Cell 2.7 10^3/uL (4.4-10.8)
[2022-09-18 11:55] LABS: INR 1.16 (0.9-1.15)
[2022-09-18 12:30] LABS: Albumin 2.4 g/dL (3.4-5.0); Bilirubin, Total 2.2 mg/dL (0.2-1.0); Calcium 8.4 mg/dL (8.5-10.1); Total Protein 7.7 g/dL (6.4-8.2)
== END | disposition home or self-care (01) ==
LOC: LAB 10:54
PROVIDERS: ATTEND Internal Medicine Gastroenterology
DX: K74.60 Unspecified cirrhosis of liver (principal)
CPT/HCPCS: 36415; 80053; 85025; 85610